=== PATIENT | female | born 1935 | race Caucasian/White ===

== ENCOUNTER 2017-08-23 17:51 | Emergency (ER) | payer MEDICARE ==
[2017-08-23 19:03] LABS: ABS Basophils 0.1 10^3/ul (0-0.2); ABS Eosinophils 0.1 10^3/ul (0-0.6); ABS Lymphocytes 1.1 10^3/ul (1.0-4.8); ABS Monocytes 0.8 10^3/ul (0-0.8); ABS Neutrophils 5.7 10^3/ul (1.5-7.7); ABS Nucleated RBC 0 10^3/ul; Eosinophil % 1.7 % (0-6); Hematocrit 39 % (35-47); Hemoglobin 13.1 g/dl (12.0-16.0); Lymphocyte % 14.4 % (25-47); Mean Corpuscular HGB Conc 34 g/dl (31-36); Mean Corpuscular Hemoglobin 31 pg (27-31); Mean Corpuscular Volume 92 fL (80-97); Mean Platelet Volume 8.5 um3 (7.4-10.4); Nucleated Red Blood Cells % 0.2; Platelet Count 253 10^3/ul (150-450); Red Blood Count 4.19 10^6/ul (4.0-5.4); Red Cell Distribution Width 14 % (10.5-15); White Blood Count 7.9 10^3/ul (3.5-10.8)
--- NOTE | 2017-08-23 19:11 | RAD ---
HISTORY: Left knee pain, swelling COMPARISONS: January 20, 2016 VIEWS: 4, Frontal, lateral, axial, and oblique views of the left knee FINDINGS: BONE DENSITY: There is diffuse osteopenia. BONES: There is no displaced fracture. JOINTS: There is moderate tricompartment osteoarthritis. There is a large suprapatellar joint effusion without lipohemarthrosis. ALIGNMENT: There is no dislocation. SOFT TISSUES: Unremarkable. OTHER FINDINGS: None. IMPRESSION: 1. LARGE JOINT EFFUSION. 2. OSTEOPENIA. 3. OSTEOARTHRITIS. 4. NO ACUTE OSSEOUS INJURY. THE DEGREE OF OSTEOPENIA MAY MAKE A NONDISPLACED FRACTURE RADIOGRAPHICALLY OCCULT. IF SYMPTOMS PERSIST, RECOMMEND REPEAT IMAGING.
[2017-08-23 19:19] LABS: EGFR Non-African American 67.4 (>60)
--- NOTE | 2017-08-23 19:51 | RAD ---
HISTORY: Left leg swelling COMPARISONS: None relevant TECHNIQUE: Multiple transverse and longitudinal ultrasound images were obtained of the left lower extremity from the level of the common femoral vein inferiorly through to the infrapopliteal veins using grayscale, color Doppler, and spectral Doppler imaging with and without compression and with augmentation. Comparison images were obtained of the contralateral common femoral vein. FINDINGS: VEINS: The venous system of the left lower extremity is compressible throughout its course, with normal flow on color Doppler imaging and normal response to augmentation on spectral Doppler imaging. SOFT TISSUES: Unremarkable. OTHER FINDINGS: None. IMPRESSION: NO LEFT LOWER EXTREMITY DEEP VEIN THROMBOSIS
--- NOTE | 2017-08-23 19:59 | ED ---
Lower Extremity - HPI Summary HPI Summary: 82-year-old female presents with left knee swelling today. She is unsure if the swelling was there in the morning. Her son states that he was told that was walking and her left knee gave out on and she fell and she believes that is when the pain started but she is unsure. She has a history of arthritis. She denies any fevers chills or body aches. She denies any spreading redness. She' s never had this before. She denies any surgeries on the area. She is on Coumadin for previous stroke. She has a history of previous strokes and seizures with slurred speech at baseline. She denies any chest pain or shortness of breath. She states she has no pain at rest but when she tries to ambulate she has pain. She normally walks with a walker. She lives at [place] but has not assistance to help her at home. patient is on coumadin. - History of Current Complaint Chief Complaint: EDExtremityLower Stated Complaint: LEG PAIN Time Seen by Provider: 08/23/17 18:21 Pain Intensity: 8 - Allergies/Home Medications Allergies/Adverse Reactions: Allergies Allergy/AdvReac Type Severity Reaction Status Date / Time No Known Allergies Allergy Verified 01/20/16 14:53 Home Medications: Home Medications Cholecalciferol TAB* [Vitamin D TAB*] 1,000 unit PO DAILY 08/23/17 [History Confirmed 08/23/17] Denosumab(NF) [Prolia(NF)] 60 mg IM .EVERYSIXMONTHS 08/23/17 [History Confirmed 08/23/17] Lamotrigine ER (NF) 200 mg PO DAILY 08/23/17 [History Confirmed 08/23/17] Metoprolol Tartrate TAB* [Lopressor TAB*] 25 mg PO DAILY 08/23/17 [History Confirmed 08/23/17] Multivit-Min/Iron/Folic/Lutein [Centrum Silver Women Tablet] 1 each PO DAILY [History Confirmed 08/23/17] Solifenacin(NF) [Vesicare(NF)] 10 mg PO BEDTIME 08/23/17 [History Confirmed ] Timolol 0.5% OPTH.MEERA* [Timoptic 0.5% Opth*] 1 drop BOTH EYES BID 08/23/17 [ History Confirmed 08/23/17] Warfarin TAB(*) [Coumadin TAB(*)] 6 mg PO MOWEFR 08/23/17 [History Confirmed ] Warfarin TAB(*) [Coumadin TAB(*)] 6.5 mg PO SUTUTHSA 08/23/17 [History Confirmed 08/23/17] levETIRAcetam TAB* [Keppra TAB*] 1,500 mg PO BID 08/23/17 [History Confirmed ] PMH/Surg Hx/FS Hx/Imm Hx Endocrine/Hematology History: Reports: Hx Anticoagulant Therapy Denies: Hx Thyroid Disease Comment Only: Hx Diabetes - DIET CONTROLLED Cardiovascular History: Reports: 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, Hx Hypertension, Hx Syncope, Other Cardiovascular Problems/Disorders - Left atrial appendage clot Denies: Hx Pacemaker/ICD Respiratory History: Denies: Hx Asthma, Hx Chronic Obstructive Pulmonary Disease (COPD) GI History: Reports: Other GI Disorders - PT had GI consult, unknown results Denies: Hx Ulcer History: Reports: Other Problems/Disorders - uti Denies: Hx Dialysis, Hx Renal Disease Musculoskeletal History: Reports: Hx Arthritis, Other Musculoskeletal History - PAIN IN RIGHT KNEE MORE THAN LEFT Denies: Hx Rheumatoid Arthritis, Hx Osteoporosis Sensory History: Reports: Hx Cataracts, Hx Contacts or Glasses, Hx Glaucoma - PREGLAUCOMA, CATARACTS Denies: Hx Hearing Aid Opthamlomology History: Reports: Hx Cataracts, Hx Contacts or Glasses, Hx Glaucoma - PREGLAUCOMA, CATARACTS Neurological History: Reports: Hx Headaches, Hx Seizures, Hx Transient Ischemic Attacks (TIA) Psychiatric History: Denies: Hx Panic Disorder - Surgical History Surgery Procedure, Year, and Place: Knee arthroscopy 2004. tonsils as child Hx Anesthesia Reactions: No - Immunization History Date of Tetanus Vaccine: Unsure Date of Influenza Vaccine: unsure Infectious Disease History: No Infectious Disease History: Denies: Hx Hepatitis, Hx Human Immunodeficiency Virus (HIV), Traveled Outside the [place] in Last 30 Days - Family History Known Family History: Positive: Cardiac Disease, Hypertension - Social History Alcohol Use: None Substance Use Type: Reports: None Smoking Status (MU): Never Smoked Tobacco Have You Smoked in the Last Year: No Review of Systems Negative: Fever Negative: Chest Pain Negative: Shortness Of Breath Positive: Edema - left leg All Other Systems Reviewed And Are Negative: Yes Physical Exam Triage Information Reviewed: Yes Vital Signs On Initial Exam: Initial Vitals Temp Pulse Resp BP Pulse Ox 99.7 F 64 18 182/85 97 08/23/17 17:54 08/23/17 17:54 08/23/17 17:54 08/23/17 17:54 08/23/17 17:54 Vital Signs Reviewed: Yes Appearance: Positive: Well-Appearing Skin: Positive: Warm, Dry Head/Face: Positive: Normal Head/Face Inspection Eyes: Positive: Normal, Conjunctiva Clear Respiratory/Lung Sounds: Positive: Clear to Auscultation, Breath Sounds Present Cardiovascular: Positive: Normal, RRR Musculoskeletal: Positive: Limited @ - left knee, Edema Left - knee, Other - good pulses, capillary refill<2 secs, nontender left knee, pos ballotments, pain with ROM knee Neurological: Positive: Other - slurred speech at baseline Diagnostics - Vital Signs Vital Signs Temp Pulse Resp BP Pulse Ox 08/23/17 19:08 99.1 F 66 15 173/89 99 08/23/17 18:00 67 12 97 08/23/17 17:59 182/85 08/23/17 17:54 99.7 F 64 18 182/85 97 - Laboratory Lab Results: Lab Results 08/23/17 08/23/17 Range/Units 18:28 18:28 WBC 7.9 (3.5-10.8) 10^3/ul RBC 4.19 (4.0-5.4) 10^6/ul Hgb 13.1 (12.0-16.0) g/dl Hct 39 (35-47) % MCV 92 (80-97) fL MCH 31 (27-31) pg MCHC 34 (31-36) g/dl RDW 14 (10.5-15) % Plt Count 253 (150-450) 10^3/ul MPV 8.5 (7.4-10.4) um3 Neut % (Auto) 72.2 (38-83) % Lymph % (Auto) 14.4 L (25-47) % [place] % (Auto) 10.6 H (0-7) % Eos % (Auto) 1.7 (0-6) % Baso % (Auto) 1.1 (0-2) % Absolute Neuts (auto) 5.7 (1.5-7.7) 10^3/ul Absolute Lymphs (auto) 1.1 (1.0-4.8) 10^3/ul Absolute Monos (auto) 0.8 (0-0.8) 10^3/ul Absolute Eos (auto) 0.1 (0-0.6) 10^3/ul Absolute Basos (auto) 0.1 (0-0.2) 10^3/ul Absolute Nucleated RBC 0 10^3/ul Nucleated RBC % 0.2 ESR Pending Sodium 136 (133-145) mmol/L Potassium 4.1 (3.5-5.0) mmol/L Chloride 100 L (101-111) mmol/L Carbon Dioxide 28 (22-32) mmol/L Anion Gap 8 (2-11) mmol/L BUN 20 (6-24) mg/dL Creatinine 0.81 (0.51-0.95) mg/dL Est GFR ( Amer) 86.6 (>60) Est GFR (Non-Af Amer) 67.4 (>60) BUN/Creatinine Ratio 24.7 H (8-20) Glucose 99 (70-100) mg/dL Calcium 10.1 (8.6-10.3) mg/dL Total Bilirubin 0.60 (0.2-1.0) mg/dL AST 26 (13-39) U/L ALT 18 (7-52) U/L Alkaline Phosphatase 70 (34-104) U/L C-React Prot High Sens 1.28 mg/L Total Protein 7.1 (6.4-8.9) g/dL Albumin 4.3 (3.2-5.2) g/dL Globulin 2.8 (2-4) g/dL Albumin/Globulin Ratio 1.5 (1-3) Result Diagrams: 08/23/17 18:28 08/23/17 18:28 Lab Statement: Any lab studies that have been ordered have been reviewed, and results considered in the medical decision making process. - Radiology knee Xray Interpretation: Positive (See Comments) - IMPRESSION: 1. LARGE JOINT EFFUSION. 2. OSTEOPENIA. 3. OSTEOARTHRITIS. 4. NO ACUTE OSSEOUS INJURY. THE DEGREE OF OSTEOPENIA MAY MAKE A NONDISPLACED FRACTURE RADIOGRAPHICALLY OCCULT. IF SYMPTOMS PERSIST, RECOMMEND REPEAT IMAGING. Radiology Interpretation Completed By: Radiologist - Ultrasound No standard instances Ultrasound Interpretation: No Acute Changes Ultrasound Interpretation Completed By: Radiologist Re-Evaluation - Re-Evaluation First Eval Re-Evaluation Time: 00:35 Comment: after frequent discussion with daughter about admission vs [facility]. offered admission but due to be able to ambulate will have to be senior living admission. daughter has decided to take her to her house. Lower Extremity Course/Dx - Course Course Of Treatment: 82-year-old female presents with left knee swelling today. She is unsure if the swelling was there in the morning. Her son states that he was told that was walking and her left knee gave out on and she fell and she believes that is when the pain started but she is unsure. She has a history of arthritis. She denies any fevers chills or body aches. She denies any spreading redness. She's never had this before. She denies any surgeries on the area. She is on Coumadin for previous stroke. She has a history of previous strokes and seizures with slurred speech at baseline. She denies any chest pain or shortness of breath. She states she has no pain at rest but when she tries to ambulate she has pain. She normally walks with a walker. She lives at [place]. patient is on coumadin. on exam joint is not warm or tender. pos ballotments. has pain with passive ROM. labs wbc, crp and esr normal. u/s dvt normal. xray shows large joint effusion. discussed case with dr rudolph who saw patient and advised to tap knee. dr rudolph performed joint aspiration. the fluid was bloody. spoke with dr heart and says that appears has traumatic hematoma and is not a septic joint. patient can not walk so will consult hospitalists. as was able to ambulate in ED well will need to be admitted senior living. Discuss with daughter and his daughter finally decided that she will take patient home. told follow with primary. Patient's daughter understands agrees with plan. - Diagnoses Differential Diagnosis/HQI/PQRI: Positive: DVT, Fracture (Closed), Septic Arthritis, Sprain Provider Diagnoses: Effusion, left knee Discharge - Sign-Out/Discharge Documenting (check all that apply): Discharge - Discharge Plan Condition: Stable Disposition: HOME Patient Education Materials: Swollen Knee Joint (ED) Referrals: Patrica Ramos MD [Primary Care Provider] - Additional Instructions: Take tyenlol every 6 hours for pain Ice, elevate Wear compression socks Use NIKA on area during day Follow up with primary on Saturday Return to ED if develop any new or worsening symptoms - Billing Disposition and Condition Condition: STABLE Disposition: HOME
[2017-08-23 20:02] LABS: INR 2.47 (0.77-1.02)
[2017-08-23] MEDS ORDERED: Bupivacaine 0.5%* 50 ML VIAL INJ ONE (20:18)
[2017-08-23] MEDS ORDERED: levETIRAcetam TAB* 500 MG PO ONE ×2 (20:58)
[2017-08-23] MEDS ORDERED: LAMOTRIGINE 250 MG PO ONE (20:58)
[2017-08-23] MEDS ORDERED: Metoprolol Tartrate TAB* 25 MG PO ONE (20:59)
[2017-08-23] MEDS ORDERED: Solifenacin(NF) 10 MG TAB PO ONE (21:00)
[2017-08-23] MEDS ORDERED: Warfarin TAB(*) 5 MG PO ONE (21:01)
[2017-08-23] MEDS ORDERED: levETIRAcetam TAB* 500 MG ONE (21:14)
[2017-08-23] MEDS ORDERED: CMCS: Solifenacin(NF) 5 MG TAB PO ONE (22:00)
[2017-08-23] MEDS ORDERED: lamoTRIgine TAB(*) 100 MG PO ONE (22:00)
[2017-08-23] MEDS ORDERED: Acetaminophen TAB* 325 MG PO ONE (22:34)
[2017-08-24 00:02] VITALS: BP 142/60
== END 2017-08-24 00:53 | disposition home or self-care (01) ==
LOC: ED 17:51
DX: M25.462 Effusion, left knee (principal); Z79.01 Long term (current) use of anticoagulants
CPT/HCPCS: 36415; 80053; 82945; 85025; 85610; 85652; 86141; 86618; 87040; 87070; 87205; 87640; 87641; 89051; 89060; 96374; 99284; A9270-GY

== ENCOUNTER 2018-07-30 20:08 | Emergency (ER) | payer BC, MEDICARE ==
[2018-07-30 20:23] VITALS: BP 142/91
--- NOTE | 2018-07-30 20:32 | UC ---
Knee Pain HPI - HPI Summary HPI Summary: 83 y/o female presents to the urgent care accompany by family members c/o lower back pain and b/l knee pain w/ abrasion and swelling s/p falling after her knees gave away while she was being help to go to the bathroom. Due to Pt's Hx of CVA in 2012, Pt expresses w/ difficulty that her B/L knees wave away and she couldn't stand by herself and fell. That her pain is 7/10, sharp, intermittent and originates in the lower back and radiates to the hip and Rt lower extremity. Also that her knee hurt a lot. Her daughter reports Pt lives in [place] [facility] and she was told by a Staff member that Pt has been c/o lower back of for the last couple of weeks and that this morning pain worse and was radiating to her Lower extremities RT>LF. Then, Pt was trying to go to the bathroom and couldn't stand and her knees "buckled" and she fell. Then, around 1730PM, she tried w/ assistance, but was unable to stand up and fell a second time. Pt has been on Coumadin for the past 5 years. Last INR on was 2.9. Pt denies LOC, numbness or tinging of lower extremities, fever , urinary symptoms, saddle anesthesia, urinary or fecal incontinence. When ask if she can give us urine she states she can tried. Daughter and family member are concern that Pt can not return to [facility] if she can't ambulate. Pt denies , CAMERON, photophobia , visual changes, SOB, chest pain, abdominal pain, N/V/D - History of Current Complaint Chief Complaint: UCLowerExtremity Stated Complaint: PAIN IN KNEES Time Seen by Provider: 07/30/18 20:30 Hx Obtained From: Patient, Family/First Responder Onset/Duration: Gradual Onset, Lasting Weeks - couple of weeks w/ lower back pain, Worse Since - today her B/l knee gave away and fell one time w/o assistence and another time w/ assistance. unable to ambulate now Severity Initially: Mild Severity Currently: Moderate Pain Intensity: 7 Pain Scale Used: 0-10 Numeric Character: Sharp, Spasmodic Aggravating Factor(s): Movement, Weight Bearing, Other - unable to stand up Alleviating Factor(s): Rest, OTC Meds - took tylenol PO around 1800PM Associated Signs And Symptoms: Positive: Swelling, Redness, Bruising - b/L knees w/ abrasion Able to Bear Weight: No - Risk Factors Septic Arthritis Risk Factor: Negative Gout Risk Factor: Negative - Allergies/Home Medications Allergies/Adverse Reactions: Allergies Allergy/AdvReac Type Severity Reaction Status Date / Time No Known Allergies Allergy Verified 07/30/18 22:08 Home Medications: Home Medications Acetaminophen [Tylenol Extra Strength] 500 mg PO Q6HR 07/30/18 [History] Cholecalciferol (Vitamin D3) [Vitamin D3] 1,000 unit PO DAILY 07/30/18 [History] Denosumab(NF) [Prolia(NF)] 60 mg .SEE ORDER DAILY 07/30/18 [History] Mirabegron [Myrbetriq] 25 mg PO DAILY 07/30/18 [History Confirmed 07/30/18] levETIRAcetam [Levetiracetam ER] 750 mg PO DAILY 07/30/18 [History Confirmed ] PMH/Surg Hx/FS Hx/Imm Hx Previously Healthy: Yes Other Endocrine History: osteoporosis Cardiovascular History: Atrial Fibrillation Neurological History: CVA, Seizures Other Neurological History: Stroke on 2012 Other History Of: Anticoagulant Therapy - Surgical History Surgical History: Yes Surgery Procedure, Year, and Place: Knee arthroscopy 2004. tonsils as child - Family History Known Family History: Positive: Cardiac Disease, Hypertension - Social History Occupation: Retired Lives: Assisted Living Alcohol Use: None Substance Use Type: None Smoking Status (MU): Never Smoked Tobacco Have You Smoked in the Last Year: No - Immunization History Most Recent Influenza Vaccination: 03/16 Most Recent Tetanus Shot: 2010 Most Recent Pneumonia Vaccination: April 2001 Review of Systems All Other Systems Reviewed And Are Negative: Yes Constitutional: Positive: Negative Skin: Positive: Bruising - b/l knees w/ abrasion s/p fall Eyes: Positive: Negative ENT: Positive: Negative Respiratory: Positive: Negative Cardiovascular: Positive: Negative Gastrointestinal: Positive: Negative Genitourinary: Positive: Negative Motor: Positive: Negative Musculoskeletal: Positive: Decreased ROM - lower back and B/L knees s/p fall, Other: - lower back for the last 2 weeks and B/l knee pain w/ swelling a bruising s/p fall toady Neurological: Positive: Negative Psychological: Positive: Negative Is Patient Immunocompromised?: No Physical Exam - Summary Physical Exam Summary: Vital Signs Reviewed: Yes Appearance: Well-Appearing, Well-Nourished, old female sitting in the examining on the wheel chair w/o any apparent pain or respiratory distress. Eyes: Positive: Conjunctiva Clear - PERRLA, EOMI. ENT: Positive: Normal ENT inspection, Hearing grossly normal, Pharynx normal, TMs normal, Uvula midline Neck: Positive: Supple, Nontender, No Lymphadenopathy Respiratory: Positive: Chest non-tender, Lungs clear, Normal breath sounds, No respiratory distress Cardiovascular: Positive: RRR, No Murmur, Pulses Normal, Brisk Capillary Refill Abdomen Description: Positive: Nontender, No Organomegaly, Soft. Negative: CVA Tenderness (R), CVA Tenderness (L) Bowel Sounds: Positive: Present Musculoskeletal: Positive: Strength Intact, BACK: Patient unable to ambulate or bear weight., No masses palpated. Kyphoscoliosis observed. Point tenderness at the level of L4-S1, No CVAT, no flank ecchymosis . No sacroiliac notch tenderness, No saddle anesthesia.ROM: limited since patient is unable to stand up or lay down on the examining table due to pain, Straight Leg Raise: unable to performe do to pain. Patellar reflexes: brisk, decrease Muscle strength on Rt lower extremities. Dorsiflexion/ plantar flexion of ankles WNL. Lower extremities: Femoral, popliteal, posterior tibial, and dorsalis pedis pulses WNL. Positive: B/l knees w/ mild soft tissue swelling, mild effusion RT>LF w/ overlying erythema and abrasion. The R knee is without obvious asymmetry or deformity when compared with the L knee. Decreased ROM of RT knee due to pain. Posiitve tenderness to palpation of both patellas, tenderness over the infrapatellar tendon. Point tenderness over the medial joint line, No tenderness over the medial or lateral tibial plateaus. No tenderness over the proximal fibular head, No tenderness, fullness or mass of the popliteal fossa. No quadriceps tenderness. No laxity of the ACL. PCL, MCL, or LCL. no collateral ligament laxity to valgus or varus stress. Negative Giorgi/Drawer sign. Marcia unable to perform due to pain. B/l feet w/ moderate bruising. Rt hip illiac crest point tenderness and decreaser ROM due to pain. Psychological Exam: Normal Skin Exam: B/L knee abrasions Neuro: A&O x3, GCS 15, CN II-XII grossly intact. sensory exam nonfocal. B/L LE w/ decrease strength, Reflexes are symmetric. Speech is w/ expressive aphasia and unable to ambulate Triage Information Reviewed: Yes Vital Signs: Initial Vital Signs Temp 99.3 F 07/30/18 20:16 Pulse 73 07/30/18 20:16 Resp 16 07/30/18 20:16 BP 142/91 07/30/18 20:16 Pulse Ox 96 07/30/18 20:16 Knee Pain Course/Dx - Course Course Of Treatment: 83 y/o female presents to the urgent care accompany by family members c/o lower back pain and b/l knee pain w/ abrasion and swelling s/ p falling after her knees gave away while she was being help to go to the bathroom. Due to Pt's Hx of CVA in 2012, Pt expresses w/ difficulty that her B/ L knees wave away and she couldn't stand by herself and fell. That her pain is 7/10, sharp, intermittent and originates in the lower back and radiates to the hip and Rt lower extremity. Also that her knee hurt a lot. Her daughter reports Pt lives in [facility] and she was told by a Staff member that Pt has been c/o lower back of for the last couple of weeks and that this morning pain worse and was radiating to her Lower extremities RT>LF. Then, Pt was trying to go to the bathroom and couldn't stand and her knees "buckled" and she fell. Then, around 1730PM, she tried w/ assistance, but was unable to stand up and fell a second time. Pt has been on Coumadin for the past 5 years. Last INR on 07/19/2018 was 2.9. Pt denies LOC, numbness or tinging of lower extremities, fever, urinary symptoms, saddle anesthesia, urinary or fecal incontinence. When ask if she can give us urine she states she can tried. Daughter and family member asre concern that Pt can not return to [facility] if she can't ambulate. Pt denies, CAMERON, photophobia , visual changes, SOB, chest pain, abdominal pain, N/V/D. Hx obtained. Pt is hemodynamically stable, A&OX3, vitals WNL. However, due to patient's HX of CVA the neurological exam can't be fully assessed. She presents w/ expressive aphasia and some degree of B/L LE weakness w/ Point tenderness at the level of L4-S1, B/L knee swelling w/ mild effusion and abrasion and decrease ROM due to pain, however pulses and capillary refill are WNL on examination. Pt is on Coumadin and fell we need to r /o any bleeding or hematoma or recent CVA. Pt also w/ Hx of osteoporosis on Prolia, we need to r/o compression fracture of hip fracture. I discussed Pt's symptoms with Dr Riley since I think Pt needs a higher level of care. Dr Riley evaluated Pt and agreed that Pt needs to go to the [place] [facility]. She addressed and explained to Pt and family members the importance of transferring Pt to [place] [facility] [facility] for further evaluation and treatment on her symptoms and the risks of not going there. They were offered Ambulance transferred. However, they declined and stated they will take Pt immediately to the ER in their private car. Dr Riley discussed Pt's symptoms w/ [facility] who accepted the patient. Pt left the clinic on the wheel chair, hemodynamically stable, A&OX3. - Differential Dx/Diagnosis Differential Diagnosis/HQI/PQRI: Abrasion, Contusion, Fracture (Closed), Sprain , Strain, Tendonitis, Other - lower back pain, hematoma, compression fracture Provider Diagnosis: Lower back pain, Acute bilateral knee pain, Abrasion Discharge - Sign-Out/Discharge Documenting (check all that apply): Patient Departure - Pt and family memebers hightly recommended to go to the ER for further evaluationa and treatment on your symptoms All imaging exams completed and their final reports reviewed: No Studies - Discharge Plan Condition: Stable Disposition: TRANS HIGHER LVL OF CARE FAC Patient Education Materials: Acute Low Back Pain (ED) Referrals: Patrica Ramos MD [Primary Care Provider] - 1 Day Additional Instructions: I think you need a higher level or care for your presenting symptoms. I highly recommend you to go to the ER for further evaluation and treatment. The risks of not going can be sepsis, compression fracture, unable to ambulate heart attack, etc. Dr Riley spoke to charge [facility] . They are expecting you. - Billing Disposition and Condition Condition: STABLE Disposition: Trans Higher Lvl of Care Fac
== END 2018-07-30 21:46 | disposition short-term general hospital (02) ==
LOC: UCEAST 20:08
DX: S80.212A Abrasion, left knee, initial encounter (principal); S80.211A Abrasion, right knee, initial encounter; M54.5 Low back pain; M25.562 Pain in left knee; M25.561 Pain in right knee; W19.XXXA Unspecified fall, initial encounter; Y92.9 Unspecified place or not applicable
CPT/HCPCS: 99212; G0463

== ENCOUNTER 2018-07-30 21:59 | Inpatient (IN) | payer BC, MEDICARE ==
--- NOTE | 2018-07-30 23:52 | ED ---
Lower Extremity - HPI Summary HPI Summary: An 83 y/o F referred [place] [facility] [place] with c/o bilateral LE weakness onset yesterday at 1700. She attempted to stand, when she had hip pain that radiated to her bilateral LE, which caused her legs to buckle, and she fell. She 's been unable to bear weight since then. The pain and weakness is worse on her RLE than her LLE. She states this AM she was feeling OK and was able to ambulate with her walker. She's been having intermittent back pain for the past few weeks. Denies recent illness, CP, SOB, dyspnea, abd pain, CAMERON. 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 She ate lunch today but hasnt eaten since. - History of Current Complaint Chief Complaint: EDExtremityLower Stated Complaint: PAIN IN LEGS Time Seen by Provider: 07/30/18 23:42 Hx Obtained From: Patient, Family/Jewelry Consultant - son Onset of Pain: Immediate Onset/Duration: Still Present Severity Initially: Severe Severity Currently: Severe Pain Intensity: 8 Pain Scale Used: 0-10 Numeric Timing: Constant Location: Radiates To - bilateral LE, R worse than L Aggravating Factor(s): Ambulation, Movement, Weight Bearing Able to Bear Weight: No - Allergies/Home Medications Allergies/Adverse Reactions: Allergies Allergy/AdvReac Type Severity Reaction Status Date / Time No Known Allergies Allergy Verified 07/30/18 22:08 PMH/Surg Hx/FS Hx/Imm Hx Previously Healthy: No Endocrine/Hematology History: Reports: Hx Anticoagulant Therapy Denies: Hx Thyroid Disease Comment Only: Hx Diabetes - DIET CONTROLLED Cardiovascular History: Reports: Hx Atrial Fibrillation, 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, Hx Hypertension, Hx Syncope, Other Cardiovascular Problems/Disorders - Left atrial appendage clot Denies: Hx Pacemaker/ICD Respiratory History: Denies: Hx Asthma, Hx Chronic Obstructive Pulmonary Disease (COPD) GI History: Reports: Other GI Disorders - PT had GI consult, unknown results Denies: Hx Ulcer History: Reports: Other Problems/Disorders - uti Denies: Hx Dialysis, Hx Renal Disease Musculoskeletal History: Reports: Hx Arthritis, Hx Osteoporosis, Other Musculoskeletal History - PAIN IN RIGHT KNEE MORE THAN LEFT Denies: Hx Rheumatoid Arthritis Sensory History: Reports: Hx Cataracts, Hx Contacts or Glasses, Hx Glaucoma - PREGLAUCOMA, CATARACTS Denies: Hx Hearing Aid Opthamlomology History: Reports: Hx Cataracts, Hx Contacts or Glasses, Hx Glaucoma - PREGLAUCOMA, CATARACTS Neurological History: Reports: Hx Headaches, Hx Seizures, Hx Transient Ischemic Attacks (TIA) Psychiatric History: Denies: Hx Panic Disorder - Surgical History Surgery Procedure, Year, and Place: Knee arthroscopy 2004. tonsils as child Hx Anesthesia Reactions: No - Immunization History Date of Tetanus Vaccine: Unsure Date of Influenza Vaccine: unsure Infectious Disease History: No Infectious Disease History: Denies: Hx Hepatitis, Hx Human Immunodeficiency Virus (HIV), Traveled Outside the [place] in Last 30 Days - Family History Known Family History: Positive: Cardiac Disease, Hypertension - Social History Occupation: Retired Lives: [facility] Alcohol Use: None Hx Substance Use: No Substance Use Type: Reports: None Hx Tobacco Use: No Smoking Status (MU): Never Smoked Tobacco Have You Smoked in the Last Year: No Review of Systems Negative: Fever Negative: Chest Pain Respiratory: Negative Negative: Abdominal Pain Musculoskeletal: Other - pos: bilateral LE pain, hip pain Positive: Weakness - bilateral LE. Negative: Headache All Other Systems Reviewed And Are Negative: Yes Physical Exam - Summary Physical Exam Summary: Appearance: Elderly female, Ill-appearing, Well-nourished, lying in bed comfortably in no acute distress Skin: Warm, dry, no obvious rash Eyes: sclera anicteric, no conjunctival pallor ENT: mucous membranes moist, pharynx appears normal Neck: Supple, nontender Respiratory: Clear to auscultation, no signs of respiratory distress Cardiovascular: Normal S1, S2. No murmurs. Normal distal pulses in tibial and radial bilaterally. Abdomen: Soft, normal active bowel sounds present, mildly distended but non- tender Musculoskeletal: Weakness of RLE, unable to raise it off stretcher; tenderness in back to palpation Neurological: A&Ox3, awake and alert, mentation is normal, speech is fluent and appropriate Psychiatric: affect is normal, does not appear anxious or depressed Triage Information Reviewed: Yes Vital Signs On Initial Exam: Initial Vitals Temp Pulse Resp BP Pulse Ox 98.8 F 70 16 180/94 96 07/30/18 22:04 07/30/18 22:04 07/30/18 22:04 07/30/18 22:04 07/30/18 22:04 Vital Signs Reviewed: Yes Diagnostics - Vital Signs Vital Signs Temp Pulse Resp BP Pulse Ox 07/30/18 23:41 61 199/103 96 07/30/18 23:38 68 97 07/30/18 22:04 98.8 F 70 16 180/94 96 - Laboratory Result Diagrams: 07/31/18 00:06 07/31/18 00:06 Lab Statement: Any lab studies that have been ordered have been reviewed, and results considered in the medical decision making process. - Radiology hip/pelvis XR Radiology Interpretation Completed By: ED Physician Summary of Radiographic Findings: No acute fracture. l-spine XR Radiology Interpretation Completed By: ED Physician Summary of Radiographic Findings: Degenerative joint disease but no fracture. Lower Extremity Course/Dx - Course Course Of Treatment: Pt is an 83 y/o F referred from [facility] [place] presenting with bilateral LE weakness onset yesterday at 1700. She attempted to stand, when she had hip pain that radiated to her bilateral LE, and caused her legs to buckle. She's been unable to bear weight since. The pain and weakness is worse on her RLE. She states this AM she was feeling OK and was able to ambulate with her walker. She's been having intermittent back pain for the past few weeks. Denies recent illness, CP, SOB, dyspnea, abd pain, CAMERON. 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 She ate lunch today but hasnt eaten since. HIP/PELVIS XR and L-SPINE XR are negative for fractures. UA results show trace ketones. Consulted with Dr. Barragan, hospitalist, who will admit pt. - Diagnoses Provider Diagnoses: Spinal stenosis - Physician Notifications Discussed Care Of Patient With: Delmi Barragan - hospitalist Time Discussed With Above Provider: 01:09 Instructed by Provider To: Admit As Inpatient Discharge - Sign-Out/Discharge Documenting (check all that apply): Patient Departure - ADMIT Patient Received Moderate/Deep Sedation with Procedure: No - Discharge Plan Condition: Guarded Disposition: ADMITTED TO [facility] - Billing Disposition and Condition Condition: GUARDED Disposition: Admitted to [facility] - Attestation Statements Document Initiated by Scribe: Yes Documenting Scribe: Gage Martinez Provider For Whom Scribe is Documenting (Include Credential): MD Hugo Wetzel Attestation: I, Gage Martinez, scribed for Dr. Santo Maravilla MD on 07/31/18 at 0258. Scribe Documentation Reviewed: Yes Provider Attestation: The documentation as recorded by the scribe, Gage Martinez accurately reflects the service I personally performed and the decisions made by me, Dr. Santo Maravilla MD Status of Scribe Document: Viewed
[2018-07-30] MEDS ORDERED: NS 0.9% 1000 ML** 1,000 ML IV ONE (23:57)
[2018-07-30] MEDS ORDERED: Morphine VIAL* 4 MG/ML VIAL (1 ml vial) IV ONE (23:59)
[2018-07-31 00:24] LABS: ABS Basophils 0.1 10^3/ul (0-0.2); ABS Eosinophils 0.2 10^3/ul (0-0.6); ABS Lymphocytes 1.6 10^3/ul (1.0-4.8); ABS Monocytes 1.1 10^3/ul (0-0.8); ABS Neutrophils 5.8 10^3/ul (1.5-7.7); ABS Nucleated RBC 0 10^3/ul; Eosinophil % 2.5 %; Hematocrit 41 % (35-47); Hemoglobin 13.8 g/dl (12.0-16.0); Lymphocyte % 17.6 %; Mean Corpuscular HGB Conc 33 g/dl (31-36); Mean Corpuscular Hemoglobin 31 pg (27-31); Mean Corpuscular Volume 91 fL (80-97); Mean Platelet Volume 8.7 fL (7.4-10.4); Nucleated Red Blood Cells % 0; Platelet Count 233 10^3/ul (150-450); Red Blood Count 4.53 10^6/ul (4.00-5.40); Red Cell Distribution Width 14 % (10.5-15); White Blood Count 8.8 10^3/ul (3.5-10.8)
[2018-07-31 00:41] LABS: Albumin 4.2 g/dL (3.2-5.2); Albumin/Globulin Ratio 1.5 (1-3); BUN/Creatinine Ratio 23.7 (8-20); C Reactive Protein 4.99 mg/L (<8.01); EGFR African American 87.5 (>60); EGFR Non-African American 72.3 (>60); Globulin 2.8 g/dL (2-4); Potassium 3.6 mmol/L (3.5-5.0); Total Bilirubin 0.6 mg/dL (0.2-1.0)
[2018-07-31 00:56] LABS: TSH (Thyroid Stimulating Horm) 2.83 mcIU/mL (0.34-5.60)
[2018-07-31 01:24] LABS: Urine Appearance Clear; Urine Bilirubin Negative (Negative); Urine Blood Negative (Negative); Urine Color Yellow; Urine Glucose Negative (Negative); Urine Ketones Trace (Negative); Urine Nitrite Negative (Negative); Urine Protein Negative (Negative); Urine Specific Gravity 1.008 (1.010-1.030); Urine Urobilinogen Negative (Negative)
[2018-07-31 03:06] LABS: INR 3.22 (0.77-1.02)
[2018-07-31] MEDS ORDERED: Phytonadione IV (Adult)* 10 MG/ML 1 ML AMP IV ONE (04:49)
[2018-07-31] MEDS ORDERED: levETIRAcetam IV* 500 MG in NS 0.9% 100 ML* 100 ML IVPB ONE (04:56)
--- NOTE | 2018-07-31 05:09 | PN ---
Hospitalist Progress Note Date of Service: 07/31/18 I have spoken with Chiquis's daughter Lisseth and updated her on her mother's condition. She understands. I also verified that she is indeed FULL CODE. I spoke with Dr. Hopper after he reviewed the films and he has the same recommendations as prior--reverse INR, FFP, ICU transfer. Continue her usual seizure medications. Will recheck INR after vitamin K is given and also CT head in 6 hours. Will also check CT c-spine.
[2018-07-31] MEDS ORDERED: niCARdipine 0.1MG/ML IVPREMIX* 20 MG/200 ML BAG IV ONE (05:26)
[2018-07-31] MEDS ORDERED: Phytonadione 10 mg in 50 mL NS over 30 min IV ONE (05:45)
--- NOTE | 2018-07-31 08:24 | HP ---
HISTORY AND PHYSICAL: ADDENDUM: I received a call from the on-call radiologist regarding Ms. Cisneros' CT head, who reported that she has a small acute subarachnoid hemorrhage. I have spoken with Dr. Polo who recommends IV vitamin K, Keppra, FFP, and transfer to the ICU. I have spoken with her floor nurse and also the ICU nurse and have arranged this transfer. I will call Ms. Cisneros' son and update him. The question is whether the subarachnoid hemorrhage is a result of the fall or a cause of the fall. Dr. Polo is currently reviewing the film, after which we will discuss her case again. [id number]/[facility] #: [id number] MTDD
[2018-07-31] MEDS ORDERED: Metoprolol Tartrate IV* 1 MG/ML 5 ML VIAL IV PRN (08:52)
[2018-07-31] MEDS ORDERED: Warfarin TAB(*) 5 MG PO SCH (09:00)
--- NOTE | 2018-07-31 09:14 | HP ---
ADDENDUM NOW INCLUDED ON THIS REPORT HISTORY AND PHYSICAL: DATE OF ADMISSION: 07/31/18 TIME OF ADMISSION: 3 o'clock a.m. PRIMARY CARE PHYSICIAN: Patrica Ramos MD. CHIEF COMPLAINT: Falls. HISTORY OF PRESENT ILLNESS: This is an 83-year-old female with a history of CVAs and expressive aphasia, who presents to the emergency department after 2 falls in the past 2 days at [place]. The history is markedly limited by expressive aphasia that she has had as a result of prior CVAs. However, the emergency department was able to get some history from the patient's son before he left. He reports that he brought her to the emergency department for bilateral leg pain and inability to walk over the last 2 days. Ms. Cisneros herself is able to tell me that she has had 2 falls in the past 2 days. On the first day, the staff was able to help her back into bed, but the second one, they were unable to help her back up. She says that prior to the falls, however , she was experiencing pain in her right inferior rib cage that radiated all the way down to her hip and right thigh. She denies any bowel or bladder incontinence; however, in the emergency department, her bladder was noted to be distended, and when a Lara catheter was placed, 700 cc were released. Ms. Cinseros denies cough, shortness of breath, chest pain, nausea, vomiting, constipation, diarrhea, dysuria, but does note some urinary frequency. PAST MEDICAL HISTORY: CVA with expressive aphasia and right upper extremity sensory deficit and weakness; seizure disorder; atrial fibrillation, on warfarin ; osteoporosis. HOME MEDICATIONS: 1. Tylenol 500 mg q.6. 2. Vitamin D3 1000 units daily. 3. Denosumab 60 mg weekly. 4. Centrum Silver multivitamin daily. 5. Atorvastatin 20 mg daily. 6. Lamotrigine ER 200 mg b.i.d. 7. Keppra 750 mg ER daily. 8. Toprol-XL 25 mg daily. 9. Mirabegron 25 mg daily. 10. Timolol 0.5% ophthalmic solution 1 drop both eyes b.i.d. 11. Warfarin 5 mg daily. SOCIAL HISTORY: She lives at [place] and is normally independent. She names her daughter Lisseth and her son Guille as her healthcare proxies. She is a full code. PHYSICAL EXAMINATION GENERAL: Alert, elderly female, in no distress. She is anxious and gets frustrated at her inability to express herself clearly verbally. VITAL SIGNS: Temperature 98.8, heart rate 64, respiratory rate 18, pulse ox 99 % on room air, blood pressure 159/92. HEENT: Pupils equal, round, and reactive to light. She has good eye contact and extraocular movements are intact. Her oral mucosa is very dry. NECK: No JVP or adenopathy. LUNGS: Clear bilaterally. CHEST: She is in a regular rhythm with no murmurs appreciated. ABDOMEN: Soft, nontender, and nondistended. She is tender to palpation in the right 10th through 12th ribs. EXTREMITIES: She is tender to palpation over her right hip; however, she has excellent active and passive range of motion and does not have pain with flexion , extension, internal or external rotation. She has no swelling. Her pulses are 2+. She has no skin changes. She has abrasions on both knees, and a Lara catheter is in place. NEUROLOGIC: Her strength is 5/5 in all extremities. Her sensation is intact. Her proprioception is intact. She has some expressive aphasia but is largely able to communicate her major points; however, details get lost. She follows simple commands, and her cognition seems to be intact. LABORATORY DATA: White blood cells 8.8, hemoglobin 13.8, platelets 233. Sodium 140, potassium 3.6, chloride 104, BUN 18, creatinine 0.76, glucose 103, lactic acid 1.0. CK is pending and INR is pending. A urinalysis is negative for nitrites, leukocyte esterase. IMAGING: A lumbar spine x-ray and a hip pelvis x-ray are negative per the ED provider report. A [facility] report is pending. ASSESSMENT AND PLAN: This is an 83-year-old female with history of a cerebrovascular accident and expressive aphasia and atrial fibrillation, on anticoagulation, who comes to the emergency department after 2 falls in 2 days and was found to have acute urinary retention. 1. Falls. The etiology of her falls is unclear. She has no metabolic derangements or any evidence of an infectious process that are causing her to fall. I am getting a CT head now to rule out both the cause of her falls and also to rule out a bleed from her falls because she is on anticoagulation. I will follow this closely. Her strength is good. I do not see any neurologic deficits that would cause her to fall based on my exam. However, I think she needs a more extensive radiographic workup as below. 2. Right-sided pain. I have a CK pending. I am also ordering and a rib series since when asked to localize the pain, she actually points to her inferior rib cage on the right. I am ordering a PT consult and also an MRI of her L-spine given her ongoing pain and urinary retention to rule out a spinal process, but again her lower extremities have good strength and sensation. 3. History of cerebrovascular accident with expressive aphasia. This seems to be at her baseline based on her prior documentation from old admissions. Continue warfarin pending the INR. 4. History of seizures. Continue Keppra and lamotrigine. It is possible that a seizure contributed to her fall but no one who had provided history has suggested that this was part of her presentation. 5. DVT prophylaxis: She is on therapeutic anticoagulation. 6. Full code. ADDENDUM: I received a call from the on-call radiologist regarding Ms. Cisneros' CT head, who reported that she has a small acute subarachnoid hemorrhage. I have spoken with Dr. Polo who recommends IV vitamin K, Keppra, FFP, and transfer to the ICU. I have spoken with her floor nurse and also the ICU nurse and have arranged this transfer. I will call Ms. Cisneros' son and update him. The question is whether the subarachnoid hemorrhage is a result of the fall or a cause of the fall. Dr. Polo is currently reviewing the film, after which we will discuss her case again. [id number]/[facility] #: [id number]/[facility] #: [id number] [facility]
[2018-07-31 09:30] LABS: INR 1.73 (0.77-1.02)
[2018-07-31] MEDS: NS 0.9% 1000 ML** 1,000 ML IV SCH ×2 (10:31→22:47)
[2018-07-31] MEDS: LAMOTRIGINE 200 MG PO SCH ×3 (11:32→20:37)
[2018-07-31] MEDS: CMCS:Levetiracetam XR TAB(NF) 750 MG TAB.XR PO SCH (11:33)
[2018-07-31] MEDS: Mirabegron (NF) 25 MG TAB PO SCH (11:33)
[2018-07-31] MEDS: Metoprolol Succinate XL TAB* 25 MG PO SCH ×2 (11:33→14:21)
[2018-07-31] MEDS: Timolol 0.5% OPTH.SOL* BTL BOTH EYES SCH ×2 (11:49→20:46)
[2018-07-31] MEDS ORDERED: Phytonadione Oral Solution* 5 MG/25 ML UDC PO ONE (13:37)
[2018-07-31] MEDS: Acetaminophen TAB* 325 MG PO PRN ×2 (15:34→20:47)
--- NOTE | 2018-07-31 18:06 | PN ---
Subjective Date of Service: 07/31/18 Interval History: Patient seen and examined, difficult to obtain ROS 2/2 residual CVA deficits and expressive aphasia but can follow some simple commands. Objective Active Medications: Acetaminophen (Tylenol Tab*) 650 mg PO Q4H PRN PRN Reason: FEVER/PAIN Last Admin: 07/31/18 15:34 Dose: 650 mg Atorvastatin Calcium (Lipitor*) 20 mg PO 1700 MARIA LUZ Sodium Chloride (Ns 0.9% 1000 Ml) 1,000 mls @ 75 mls/hr IV PER RATE COUNT INCLUDES THE [facility] Last Admin: 07/31/18 10:31 Dose: 75 mls/hr Lamotrigine (Lamictal Xr (Nf)) 200 mg PO BID COUNT INCLUDES THE [facility] Last Admin: 07/31/18 14:21 Dose: 200 mg Levetiracetam (Keppra Xr (Nf)) 750 mg PO DAILY COUNT INCLUDES THE [facility]; Protocol Last Admin: 07/31/18 11:33 Dose: Not Given Metoprolol Succinate (Toprol Xl Tab*) 25 mg PO DAILY COUNT INCLUDES THE [facility] Last Admin: 07/31/18 14:21 Dose: 25 mg Metoprolol Tartrate (Lopressor Iv*) 5 mg IV Q6H PRN PRN Reason: BLOOD PRESSURE Mirabegron (Myrbetriq (Nf)) 25 mg PO DAILY COUNT INCLUDES THE [facility] Last Admin: 07/31/18 11:33 Dose: Not Given Timolol Maleate (Timoptic 0.5% Opth*) 1 drop BOTH EYES BID COUNT INCLUDES THE [facility] Last Admin: 07/31/18 11:49 Dose: 1 drop Vital Signs - 8 hr 07/31/18 07/31/18 07/31/18 10:15 10:30 11:00 Temperature Pulse Rate 63 71 64 Respiratory 19 13 17 Rate Blood Pressure 116/80 140/91 138/79 (mmHg) O2 Sat by Pulse 95 98 96 Oximetry 07/31/18 07/31/18 07/31/18 11:15 11:30 11:45 Temperature Pulse Rate 65 62 60 Respiratory 18 15 21 Rate Blood Pressure 141/68 138/81 126/72 (mmHg) O2 Sat by Pulse 95 95 96 Oximetry 07/31/18 07/31/18 07/31/18 12:00 12:01 12:30 Temperature 99.7 F Pulse Rate 62 64 55 Respiratory 20 17 16 Rate Blood Pressure 130/81 119/63 (mmHg) O2 Sat by Pulse 96 96 95 Oximetry 07/31/18 07/31/18 07/31/18 13:00 13:01 13:30 Temperature Pulse Rate 50 56 52 Respiratory 17 14 13 Rate Blood Pressure 111/57 113/60 (mmHg) O2 Sat by Pulse 95 95 95 Oximetry 07/31/18 07/31/18 07/31/18 14:00 14:01 14:30 Temperature Pulse Rate 53 54 60 Respiratory 18 21 15 Rate Blood Pressure 110/60 138/74 (mmHg) O2 Sat by Pulse 97 96 98 Oximetry 07/31/18 07/31/18 15:00 15:01 Temperature Pulse Rate 66 70 Respiratory 17 20 Rate Blood Pressure 136/76 (mmHg) O2 Sat by Pulse 95 96 Oximetry Oxygen Devices in Use Now: None Appearance: alert, NAD Eyes: PERRLA Ears/Nose/Mouth/Throat: Mucous Membranes Moist Neck: NL Appearance and Movements; NL JVP Respiratory: Symmetrical Chest Expansion and Respiratory Effort, Clear to Auscultation Cardiovascular: NL Sounds; No Murmurs; No JVD, No Edema Neurological: - - alert Nutrition: Taking PO's Result Diagrams: 07/31/18 00:06 07/31/18 00:06 Microbiology and Other Data: Microbiology 07/31/18 06:30 Nasal Screen MRSA (PCR) - Final Nasal Mrsa Not Detected Diagnostic Imaging: REPEAT CT BRAIN: [facility] Patient Name:RACHEL ARELLANO MR: [id number] : 1935 IMPRESSION: 1. Stable or slightly smaller volume of subarachnoid hemorrhage involving the left frontal lobe relative to the most recent CT of the brain acquired at 0343 hours. 2. Degenerative disc disease of the cervical spine without acute fracture or dislocation. 3. In the left lobe of the thyroid there is a 1.6 cm hypoattenuating focus with a Hounsfield unit slightly greater than that of a simple cyst. On a nonemergent basis superior characterization of the thyroid can be made with ultrasound. 4. Additional chronic and degenerative changes described in the body the report. Assess/Plan/Problems-Billing Assessment: This is an 83 year old female on anticoagulation with coumadin and supratherapeutic INR that sustained a fall with subsequent subarachnoid hemorrhage. - Patient Problems (1) Subarachnoid hemorrhage Code(s): I60.9 - NONTRAUMATIC SUBARACHNOID HEMORRHAGE, UNSPECIFIED SNOMED Code (s): 204400350 Comment: - Repeat CT as above, no surgical intervention as per neurosurgery - s/p one dose vit K and 1 unit FFP - INR down to 1.72 iwth goal 1.4 or lower as per neurosurgery - Will give additional dose K and recheck INR at 1800 (2) Atrial fibrillation Code(s): I48.91 - UNSPECIFIED ATRIAL FIBRILLATION SNOMED Code(s): 26845282 Comment: - Controlled on BB - Hold coumadin (3) Hx of ischemic left MCA stroke Code(s): Z86.73 - PRSNL HX OF TIA (TIA), AND CEREB INFRC W/O RESID DEFICITS SNOMED Code(s): 504026793 Comment: - In 2012 with residual expressive aphasia and right sided weakness currently at baseline - Continue statin (4) Hypertension Code(s): I10 - ESSENTIAL (PRIMARY) HYPERTENSION SNOMED Code(s): 89578614 Comment: - Stable on metoprolol - Lopressor IV PRN hypertension in light of ICH (5) Seizure disorder Code(s): G40.909 - EPILEPSY, UNSP, NOT INTRACTABLE, WITHOUT STATUS EPILEPTICUS SNOMED Code(s): 343817243 Comment: - No evidence of seizure activity since admission - Continue keppra, lamictal (6) DVT prophylaxis Code(s): SSV6950 - SNOMED Code(s): 193416233 Comment: - SCDs only (7) Full code status Code(s): Z78.9 - OTHER SPECIFIED HEALTH STATUS SNOMED Code(s): 752942444 Comment: - Confirmed with family, they wish to keep full code status Status and Disposition: Inpatient ICU. Dispo as per neurosurgery, but will be DC back to [facility] when medically cleared.
[2018-07-31] MEDS: Atorvastatin* 20 MG TAB PO SCH (19:12)
[2018-07-31 19:40] LABS: INR 1.27 (0.77-1.02)
[2018-07-31] MEDS ORDERED: NS 0.9% 500 ML* 500 ML IV ONE (23:45)
[2018-08-01 05:58] LABS: ABS Basophils 0.1 10^3/ul (0-0.2); ABS Eosinophils 0.4 10^3/ul (0-0.6); ABS Monocytes 0.7 10^3/ul (0-0.8); ABS Nucleated RBC 0 10^3/ul; Eosinophil % 6.5 %; Hematocrit 37 % (35-47); Hemoglobin 12.4 g/dl (12.0-16.0); Lymphocyte % 16.2 %; Mean Corpuscular HGB Conc 33 g/dl (31-36); Mean Corpuscular Hemoglobin 30 pg (27-31); Mean Corpuscular Volume 92 fL (80-97); Mean Platelet Volume 8.6 fL (7.4-10.4); Nucleated Red Blood Cells % 0.1; Platelet Count 196 10^3/ul (150-450); Red Blood Count 4.09 10^6/ul (4.00-5.40); Red Cell Distribution Width 14 % (10.5-15); White Blood Count 6.2 10^3/ul (3.5-10.8)
[2018-08-01 06:02] LABS: INR 1.14 (0.77-1.02)
[2018-08-01 06:13] LABS: BUN/Creatinine Ratio 15.5 (8-20); EGFR African American 119.6 (>60); EGFR Non-African American 98.8 (>60); Potassium 3.4 mmol/L (3.5-5.0)
[2018-08-01] MEDS: Acetaminophen TAB* 325 MG PO PRN ×3 (06:33→15:33)
--- NOTE | 2018-08-01 08:30 | PN ---
Subjective Date of Service: 08/01/18 Interval History: Ms. Cisneros was seen in her room. She is alert and able to appropriately answer questions, though she has some expressive aphasia. She states she had difficulty finding the right position to sleep last night and endorses low back pain that extends down the right leg. She states the back pain is not new and that she has had knee pain in the past. She does have abrasions to the right knee. She is not sure if she fell on it or if it is secondary to crawling on her knees after she fell. Denies headache, CP, SOB, n/v or other concern at this time. Tele: NSR 60 Family History: Unchanged from Admission Social History: Unchanged from Admission Past Medical History: Unchanged from Admission Objective Active Medications: Acetaminophen (Tylenol Tab*) 650 mg PO Q4H PRN PRN Reason: FEVER/PAIN Last Admin: 08/01/18 06:33 Dose: 650 mg Atorvastatin Calcium (Lipitor*) 20 mg PO 1700 [facility] Last Admin: 07/31/18 19:12 Dose: 20 mg Sodium Chloride (Ns 0.9% 1000 Ml) 1,000 mls @ 75 mls/hr IV PER RATE [facility] Last Admin: 07/31/18 22:47 Dose: 75 mls/hr Lamotrigine (Lamictal Xr (Nf)) 200 mg PO BID [facility] Last Admin: 07/31/18 20:37 Dose: 200 mg Levetiracetam (Keppra Xr (Nf)) 750 mg PO DAILY [facility]; Protocol Last Admin: 07/31/18 11:33 Dose: Not Given Metoprolol Succinate (Toprol Xl Tab*) 25 mg PO DAILY [facility] Last Admin: 07/31/18 14:21 Dose: 25 mg Metoprolol Tartrate (Lopressor Iv*) 5 mg IV Q6H PRN PRN Reason: BLOOD PRESSURE Mirabegron (Myrbetriq (Nf)) 25 mg PO DAILY [facility] Last Admin: 07/31/18 11:33 Dose: Not Given Potassium Chloride (Klor-Con Liquid*) 20 meq PO DAILY [facility] Timolol Maleate (Timoptic 0.5% Opth*) 1 drop BOTH EYES BID [facility] Last Admin: 07/31/18 20:46 Dose: 1 drop Vital Signs - 8 hr 08/01/18 08/01/18 08/01/18 00:30 01:00 01:01 Temperature Pulse Rate 54 54 55 Respiratory 13 13 14 Rate Blood Pressure 102/55 95/52 (mmHg) O2 Sat by Pulse 95 95 94 Oximetry 08/01/18 08/01/18 08/01/18 01:30 02:00 02:30 Temperature Pulse Rate 55 60 57 Respiratory 15 19 13 Rate Blood Pressure 112/59 127/65 95/53 (mmHg) O2 Sat by Pulse 96 96 95 Oximetry 08/01/18 08/01/18 08/01/18 03:00 03:30 04:00 Temperature 98.5 F Pulse Rate 59 56 63 Respiratory 16 11 14 Rate Blood Pressure 113/59 115/61 (mmHg) O2 Sat by Pulse 96 95 94 Oximetry 08/01/18 08/01/18 08/01/18 04:01 04:30 05:00 Temperature Pulse Rate 60 55 54 Respiratory 21 13 13 Rate Blood Pressure 137/78 106/52 96/46 (mmHg) O2 Sat by Pulse 94 94 94 Oximetry 08/01/18 08/01/18 08/01/18 05:01 05:30 06:00 Temperature Pulse Rate 55 54 56 Respiratory 15 13 16 Rate Blood Pressure 125/55 133/66 (mmHg) O2 Sat by Pulse 94 96 94 Oximetry 08/01/18 08/01/18 08/01/18 06:01 06:48 07:00 Temperature Pulse Rate 58 55 56 Respiratory 13 14 15 Rate Blood Pressure 133/76 146/79 (mmHg) O2 Sat by Pulse 94 95 96 Oximetry 08/01/18 08/01/18 07:01 07:16 Temperature 99.2 F Pulse Rate 54 Respiratory 16 15 Rate Blood Pressure (mmHg) O2 Sat by Pulse 96 Oximetry Oxygen Devices in Use Now: None Appearance: Elderly female, lying in bed, NAD Eyes: No Scleral Icterus, PERRLA Ears/Nose/Mouth/Throat: Clear Oropharnyx, Mucous Membranes Moist Neck: NL Appearance and Movements; NL JVP Respiratory: Symmetrical Chest Expansion and Respiratory Effort, Clear to Auscultation Cardiovascular: NL Sounds; No Murmurs; No JVD, RRR Abdominal: NL Sounds; No Tenderness; No Distention Extremities: No Clubbing, Cyanosis, - - right knee joint effusion Neurological: - - mild right Alert, facial droop, chronic; expressive aphasia but responds appropriately, equal manager sterile bilaterally Lines/Tubes/Other Access: Clean, Dry and Intact Lara Nutrition: Taking PO's Result Diagrams: 08/01/18 05:40 08/01/18 05:40 Microbiology and Other Data: Microbiology 07/31/18 06:30 Nasal Screen MRSA (PCR) - Final Nasal Mrsa Not Detected Diagnostic Imaging: REPEAT CT BRAIN: [facility] Patient Name:RACHEL CISNEROS MR: [id number] : 1935 IMPRESSION: 1. Stable or slightly smaller volume of subarachnoid hemorrhage involving the left frontal lobe relative to the most recent CT of the brain acquired at 0343 hours. 2. Degenerative disc disease of the cervical spine without acute fracture or dislocation. 3. In the left lobe of the thyroid there is a 1.6 cm hypoattenuating focus with a Hounsfield unit slightly greater than that of a simple cyst. On a nonemergent basis superior characterization of the thyroid can be made with ultrasound. 4. Additional chronic and degenerative changes described in the body the report. Assess/Plan/Problems-Billing Assessment: This is an 83 year old female on anticoagulation with coumadin and supratherapeutic INR that sustained a fall with subsequent subarachnoid hemorrhage. - Patient Problems (1) Subarachnoid hemorrhage Code(s): I60.9 - NONTRAUMATIC SUBARACHNOID HEMORRHAGE, UNSPECIFIED Comment: - Repeat CT this morning shows stable SAH, no surgical intervention as per neurosurgery - s/p vit K and 1 unit FFP - INR down to 1.14 with goal 1.4 or lower as per neurosurgery (2) Atrial fibrillation Code(s): I48.91 - UNSPECIFIED ATRIAL FIBRILLATION Comment: - Controlled on BB - Hold coumadin (3) Hx of ischemic left MCA stroke Status: Chronic Code(s): Z86.73 - PRSNL HX OF TIA (TIA), AND CEREB INFRC W/O RESID DEFICITS Comment: - In 2013 with residual expressive aphasia and right sided weakness currently at baseline - Continue statin (4) Hypertension Code(s): I10 - ESSENTIAL (PRIMARY) HYPERTENSION Comment: - Stable on metoprolol - Lopressor IV PRN hypertension in light of ICH (5) Seizure disorder Code(s): G40.909 - EPILEPSY, UNSP, NOT INTRACTABLE, WITHOUT STATUS EPILEPTICUS Comment: - No evidence of seizure activity since admission - Continue keppra, lamictal (6) DVT prophylaxis Comment: - SCDs only, anticoagulation contraindicated in setting of acute hemorrhage (7) Full code status Code(s): Z78.9 - OTHER SPECIFIED HEALTH STATUS Comment: - Confirmed with family, they wish to keep full code status Status and Disposition: Inpatient ICU. Transfer to medicine floor today, as CT remains stable. Dispo as per neurosurgery. Patient does not reside at [facility] but was previously living in the independent units. PT/OT consults requested. Attending: Michelet Griffin
[2018-08-01] MEDS: Mirabegron (NF) 25 MG TAB PO SCH (08:44)
[2018-08-01] MEDS: CMCS:Levetiracetam XR TAB(NF) 750 MG TAB.XR PO SCH (08:45)
[2018-08-01] MEDS: Potassium Chloride LIQUID* 20 MEQ PACKET PO SCH (08:45)
[2018-08-01] MEDS: Timolol 0.5% OPTH.SOL* BTL BOTH EYES SCH ×2 (08:45→21:10)
[2018-08-01] MEDS: LAMOTRIGINE 200 MG PO SCH ×2 (08:45→21:12)
[2018-08-01] MEDS: Metoprolol Succinate XL TAB* 25 MG PO SCH (08:45)
--- NOTE | 2018-08-01 11:23 | CONS ---
CONSULTATION REPORT: DATE OF CONSULT: 07/31/18 HISTORY OF PRESENT ILLNESS: The patient is a very pleasant 83-year-old female with a history of CVA with residual expressive aphasia and right sided mild weakness who was admitted to the hospital after reporting she sustained 2 falls in her assisted living facility. I was requested to see the patient by Dr. Barragan because of the CT scan finding consistent with a small frontal traumatic subarachnoid hemorrhage. The patient reports that she does not recall the details of the fall. She denies any loss of consciousness or loss of memory. She denies any neck or back pain. She denies any weakness, numbness, or tingling of her extremities with exception of chronic weakness in the right side of her body after her CVA. The patient denies any urinary or GI incontinence, but reports some mild difficulty with her walking. PAST MEDICAL HISTORY: CVA with right-sided weakness and expressive aphasia; seizure disorder; atrial fibrillation, on Coumadin, and osteoporosis. MEDICATIONS: The patient was on: 1. Tylenol. 2. Vitamin D. 3. Denosumab. 4. Centrum. 5. Atorvastatin. 6. Lamotrigine. 7. Keppra. 8. Toprol. 9. Mirabegron. 10. Timolol. 11. Coumadin. SOCIAL HISTORY: The patient denies tobacco, alcohol, or recreational drug use. The patient lives in [place]. PHYSICAL EXAM: The patient was examined in the ICU on the morning of presentation. The patient is awake, alert, and oriented x3. His pupils are equal and reactive. Cranial nerves II through XII are grossly intact. Motor is 4-5/5 in all extremities. The patient does have a mild right-sided drift, does report her right- sided weakness because of CVA. Sensory is grossly intact to light touch. Deep tendon reflexes +1 bilaterally. No clonus. No Babinski's. Gifty is negative. Patient has no tenderness to palpation in the thoracic or lumbar spine. He has free range of motion of the cervical spine. DIAGNOSTIC STUDIES/LAB DATA: The patient had a CT scan of the brain that revealed a very small traumatic subarachnoid hemorrhage in the left frontal region. There is also evidence of encephalomalacia in the left posterior frontal and left parietal regions, possibly due to an old infarct. ASSESSMENT: The patient is a pleasant 83-year-old female with history of falls , with CT scan findings consistent with a left frontal subarachnoid hemorrhage. The patient was on Coumadin for atrial fibrillation. PLAN: The patient at this point is doing extremely well. We have advised reversal of her coagulopathy and monitor her INR. The patient has already got seizure prophylaxis. A repeat scan of the brain did not show any significant progression of subarachnoid hemorrhage. We will monitor clinically and repeat the CT scan in 1 or 2 days prior to transfer from the ICU. Thank you for allowing us to participate in the care of this patient. Please do not hesitate to contact our office in case you have any further questions or concerns regarding the care of this patient. [id number]/[facility] #: [id number]
[2018-08-01] MEDS: Atorvastatin* 20 MG TAB PO SCH (16:00)
--- NOTE | 2018-08-02 05:06 | PN ---
Progress Note - Progress Note Date of Service: 08/01/18 SOAP: Subjective: []Patient was transferred to the floor. No events ON. Tolerates PO. Lara. Daughter at the bedside. Objective: []VSS AAO. FARTUN, CN II-XII grossly intact. Mild aphasia Motor 4-5/5 Rt side, 5/5 Lt side. Sensory grossly intact to light touch, except baseline decreased sensation Rt UE Assessment: [] 83 yof fall Left frontal traumatic SAH, on Coumadin Plan: []Monitor VS, Neurcheck Repeat CT stable. Regarding restarting anticoagulation safer option would be starting in 1 month If medically necessary 2 weeks would be reasonable. Discussed with patient's daughter in extend regarding CT findings, risks and benefits of holding anticoagulation therapy and timing options. Patient's daughter understands and is agreeable with proposed plan. Patient is followed by Dr Mercado for previous CVA. If patient's back pain persists, MRI of Lumbar spine may be considered. Appreciate IM care. Will be always available if needed. MD Walker
[2018-08-02] MEDS: LAMOTRIGINE 200 MG PO SCH ×2 (09:28→20:50)
[2018-08-02] MEDS: Timolol 0.5% OPTH.SOL* BTL BOTH EYES SCH ×2 (09:29→20:51)
[2018-08-02] MEDS: Metoprolol Succinate XL TAB* 25 MG PO SCH (09:29)
[2018-08-02] MEDS: CMCS:Levetiracetam XR TAB(NF) 750 MG TAB.XR PO SCH (09:29)
[2018-08-02] MEDS: Potassium Chloride LIQUID* 20 MEQ PACKET PO SCH (09:29)
[2018-08-02] MEDS: Mirabegron (NF) 25 MG TAB PO SCH (09:29)
[2018-08-02] MEDS: Acetaminophen TAB* 325 MG PO PRN (09:30)
--- NOTE | 2018-08-02 10:59 | PN ---
Subjective Date of Service: 08/02/18 Interval History: Ms. Cisneros was seen in room, she is OOB to chair. Son, Guille, is accompanying her. He expressed concern for right arm numbness that was increased this morning ; however, Ms. Cisneros states that she has had this since her stroke many years ago and that it was not any worse than normal (has waxing and waning symptoms in the extremity). However, she continues to endorse increased radiating pain and numbness in the low back and down the right lower extremity. Her son states that this may have contributed to the initial fall. None of her symptoms here have worsened or changed; it appears that the weakness contributed to the fall though it was not initially clear if the bleeding led to the fall initially ( also noted in H and P). She has been able to ambulate with assist but states she does feel a bit weaker. She has not yet had MRI of lumbar spine. She did not previously have a pizano though had concern for urine retention on admission. She states she has an overactive bladder at baseline. Denies any other complaints or concerns. Family History: Unchanged from Admission Social History: Unchanged from Admission Past Medical History: Unchanged from Admission Objective Active Medications: Acetaminophen (Tylenol Tab*) 650 mg PO Q4H PRN PRN Reason: FEVER/PAIN Last Admin: 08/02/18 09:30 Dose: 650 mg Atorvastatin Calcium (Lipitor*) 20 mg PO 1700 [facility] Last Admin: 08/01/18 16:00 Dose: 20 mg Lamotrigine (Lamictal Xr (Nf)) 200 mg PO BID [facility] Last Admin: 08/02/18 09:28 Dose: 200 mg Levetiracetam (Keppra Xr (Nf)) 750 mg PO DAILY [facility]; Protocol Last Admin: 08/02/18 09:29 Dose: 750 mg Metoprolol Succinate (Toprol Xl Tab*) 25 mg PO DAILY [facility] Last Admin: 08/02/18 09:29 Dose: 25 mg Metoprolol Tartrate (Lopressor Iv*) 5 mg IV Q6H PRN PRN Reason: BLOOD PRESSURE Mirabegron (Myrbetriq (Nf)) 25 mg PO DAILY [facility] Last Admin: 08/02/18 09:29 Dose: Not Given Potassium Chloride (Klor-Con Liquid*) 20 meq PO DAILY [facility] Last Admin: 08/02/18 09:29 Dose: 20 meq Timolol Maleate (Timoptic 0.5% Opth*) 1 drop BOTH EYES BID [facility] Last Admin: 08/02/18 09:29 Dose: 1 drop Vital Signs - 8 hr 08/02/18 08/02/18 08/02/18 03:01 03:05 07:05 Temperature 98.1 F 97.9 F Pulse Rate 61 66 59 Respiratory 16 16 Rate Blood Pressure 152/67 143/65 (mmHg) O2 Sat by Pulse 98 97 Oximetry 08/02/18 08:00 Temperature Pulse Rate Respiratory 20 Rate Blood Pressure (mmHg) O2 Sat by Pulse Oximetry Oxygen Devices in Use Now: None Appearance: Elderly female, sitting up in chair, NAD Eyes: No Scleral Icterus, PERRLA Ears/Nose/Mouth/Throat: Clear Oropharnyx, Mucous Membranes Moist Neck: NL Appearance and Movements; NL JVP Respiratory: Symmetrical Chest Expansion and Respiratory Effort, Clear to Auscultation Cardiovascular: NL Sounds; No Murmurs; No JVD, RRR Abdominal: NL Sounds; No Tenderness; No Distention Extremities: No Edema, No Clubbing, Cyanosis Neurological: Alert and Oriented x 3 - with expressive aphasia but able to communicate and make needs known Lines/Tubes/Other Access: Clean, Dry and Intact Peripheral IV Nutrition: Taking PO's Result Diagrams: 08/01/18 05:40 08/01/18 05:40 Microbiology and Other Data: Microbiology 07/31/18 06:30 Nasal Screen MRSA (PCR) - Final Nasal Mrsa Not Detected Diagnostic Imaging: REPEAT CT BRAIN: [facility] Patient Name:RACHEL CISNEROS MR: [id number] : 1935 IMPRESSION: 1. Stable or slightly smaller volume of subarachnoid hemorrhage involving the left frontal lobe relative to the most recent CT of the brain acquired at 0343 hours. 2. Degenerative disc disease of the cervical spine without acute fracture or dislocation. 3. In the left lobe of the thyroid there is a 1.6 cm hypoattenuating focus with a Hounsfield unit slightly greater than that of a simple cyst. On a nonemergent basis superior characterization of the thyroid can be made with ultrasound. 4. Additional chronic and degenerative changes described in the body the report. Assess/Plan/Problems-Billing Assessment: This is an 83 year old female on anticoagulation with coumadin and supratherapeutic INR that sustained a fall with subsequent subarachnoid hemorrhage. - Patient Problems (1) Subarachnoid hemorrhage Code(s): I60.9 - NONTRAUMATIC SUBARACHNOID HEMORRHAGE, UNSPECIFIED Comment: - Repeat CT 08/01 shows stable SAH, no surgical intervention as per neurosurgery - s/p vit K and 1 unit FFP - INR down to 1.14 with goal 1.4 or lower as per neurosurgery - Neurosurgery recommends holding anticoagulation preferably for one month, though 2 weeks would be acceptable. (2) Lumbar radicular pain Code(s): M54.16 - RADICULOPATHY, LUMBAR REGION Comment: Recently worsening and still an active complaint Plan to check MRI lumbar spine Continue PT/OT as tolerated (3) Urinary retention Code(s): R33.9 - RETENTION OF URINE, UNSPECIFIED Comment: Noted to have 700 mL in bladder on admission No evidence of UTI Trial discontinuation of catheter (as this is new) with qshift bladder scans Question if lumbar pain is contributing to presentation Prior to admission, she reports having an overactive bladder (unclear if this is 2/2 incomplete emptying). (4) Atrial fibrillation Code(s): I48.91 - UNSPECIFIED ATRIAL FIBRILLATION Comment: - Controlled on BB - Hold coumadin (5) Hx of ischemic left MCA stroke Status: Chronic Code(s): Z86.73 - PRSNL HX OF TIA (TIA), AND CEREB INFRC W/O RESID DEFICITS Comment: - In 2012 with residual expressive aphasia and right sided weakness currently at baseline - Continue statin (6) Hypertension Code(s): I10 - ESSENTIAL (PRIMARY) HYPERTENSION Comment: - Stable on metoprolol but trending up. Increase metoprolol to 37.5 and monitor. - Continue Lopressor IV PRN hypertension in light of ICH (7) Seizure disorder Code(s): G40.909 - EPILEPSY, UNSP, NOT INTRACTABLE, WITHOUT STATUS EPILEPTICUS Comment: - No evidence of seizure activity since admission - Continue kebrittany lamictal (8) DVT prophylaxis Comment: - SCDs only, anticoagulation contraindicated in setting of acute hemorrhage (9) Full code status Code(s): Z78.9 - OTHER SPECIFIED HEALTH STATUS Comment: - Confirmed with family, they wish to keep full code status Status and Disposition: Inpatient ICU. Transfer to medicine floor today, as CT remains stable. Dispo as per neurosurgery. Patient does not reside at [facility] but was previously living in the independent units. PT/OT consults requested. Attending: Michelet Griffin
[2018-08-02] MEDS: Atorvastatin* 20 MG TAB PO SCH (16:29)
[2018-08-03] MEDS: LAMOTRIGINE 200 MG PO SCH ×2 (08:09→21:23)
[2018-08-03] MEDS: CMCS:Levetiracetam XR TAB(NF) 750 MG TAB.XR PO SCH (08:09)
[2018-08-03] MEDS: Potassium Chloride LIQUID* 20 MEQ PACKET PO SCH (08:09)
[2018-08-03] MEDS: Mirabegron (NF) 25 MG TAB PO SCH (08:10)
[2018-08-03] MEDS: Metoprolol Succinate XL TAB* 25 MG PO SCH (08:10)
[2018-08-03] MEDS: Timolol 0.5% OPTH.SOL* BTL BOTH EYES SCH ×2 (08:10→21:25)
--- NOTE | 2018-08-03 11:30 | PN ---
Subjective Date of Service: 08/03/18 Interval History: No overnight events. Son at the bedside. Continues to have this right sided pain that radiates at the hip down to knee and in the low back b/l. Does not seem to have any further urinary retention. Tolerating PO. No CP or SOB. States this all started with significant pain in hip/knee and back which led to fall. Family History: Unchanged from Admission Social History: Unchanged from Admission Past Medical History: Unchanged from Admission Objective Active Medications: Acetaminophen (Tylenol Tab*) 650 mg PO Q6HR [facility] Atorvastatin Calcium (Lipitor*) 20 mg PO 1700 [facility] Last Admin: 08/02/18 16:29 Dose: 20 mg Lamotrigine (Lamictal Xr (Nf)) 200 mg PO BID [facility] Last Admin: 08/03/18 08:09 Dose: 200 mg Levetiracetam (Keppra Xr (Nf)) 750 mg PO DAILY [facility]; Protocol Last Admin: 08/03/18 08:09 Dose: 750 mg Metoprolol Succinate (Toprol Xl Tab*) 37.5 mg PO DAILY [facility] Last Admin: 08/03/18 08:10 Dose: 37.5 mg Metoprolol Tartrate (Lopressor Iv*) 5 mg IV Q6H PRN PRN Reason: BLOOD PRESSURE Mirabegron (Myrbetriq (Nf)) 25 mg PO DAILY [facility] Last Admin: 08/03/18 08:10 Dose: Not Given Timolol Maleate (Timoptic 0.5% Opth*) 1 drop BOTH EYES BID [facility] Last Admin: 08/03/18 08:10 Dose: 1 drop Vital Signs - 8 hr 08/03/18 08/03/18 07:16 07:22 Temperature 97.7 F Pulse Rate 62 Respiratory 20 16 Rate Blood Pressure 166/66 (mmHg) O2 Sat by Pulse 97 Oximetry Oxygen Devices in Use Now: None Ears/Nose/Mouth/Throat: Mucous Membranes Moist Respiratory: Symmetrical Chest Expansion and Respiratory Effort, Clear to Auscultation Cardiovascular: RRR, - - soft murmur Abdominal: NL Sounds; No Tenderness; No Distention, No Hepatosplenomegaly Neurological: Alert and Oriented x 3, NL Muscle Strength and Tone, - - generalized weakness Result Diagrams: 08/01/18 05:40 08/01/18 05:40 Microbiology and Other Data: Microbiology 07/31/18 06:30 Nasal Screen MRSA (PCR) - Final Nasal Mrsa Not Detected Diagnostic Imaging: REPEAT CT BRAIN: [facility] Patient Name:RACHEL ARELLANO MR: [id number] : 1935 IMPRESSION: 1. Stable or slightly smaller volume of subarachnoid hemorrhage involving the left frontal lobe relative to the most recent CT of the brain acquired at 0343 hours. 2. Degenerative disc disease of the cervical spine without acute fracture or dislocation. 3. In the left lobe of the thyroid there is a 1.6 cm hypoattenuating focus with a Hounsfield unit slightly greater than that of a simple cyst. On a nonemergent basis superior characterization of the thyroid can be made with ultrasound. 4. Additional chronic and degenerative changes described in the body the report. Assess/Plan/Problems-Billing Assessment: This is an 83 year old female with PMHx of atrial fibrillation on coumadin who presented from [facility], who had a suspected mechanical fall, found to have a SAH transferred out of ICU . - Patient Problems (1) Lumbar radicular pain Current Visit: Yes Status: Acute Code(s): M54.16 - RADICULOPATHY, LUMBAR REGION SNOMED Code(s): 568214070 Comment: A. Able to ambulate but continues to have pain, and suspect this has contributed to her weakness and fall Plan CT of lumbar spine and pelvis to R/O Fx - if negative for acute finding will continue with getting the MRI Switch to scheduled tylenol Plan to check MRI lumbar spine Continue PT/OT as tolerated Will have them re-evaluate in AM to determine if patient is eligible to return to assisted living at [facility] (2) Subarachnoid hemorrhage Current Visit: Yes Status: Acute Code(s): I60.9 - NONTRAUMATIC SUBARACHNOID HEMORRHAGE, UNSPECIFIED SNOMED Code(s): 438245789 Comment: A: suspect its secondary to fall. - Repeat CT 08/01 shows stable SAH, no surgical intervention as per neurosurgery - s/p vit K and 1 unit FFP - INR down to 1.14 with goal 1.4 or lower as per neurosurgery - Neurosurgery recommends holding anticoagulation preferably for one month, though 2 weeks would be acceptable - resume as long as patient is stable. Question if she remains a candidate with her age and deconditioning. Also patient has been in NSR. (3) Urinary retention Current Visit: Yes Status: Acute Code(s): R33.9 - RETENTION OF URINE, UNSPECIFIED SNOMED Code(s): 681078308 Comment: A. Awaiting check this AM. If no retention will d/c bladder scan Could be related to constipation Continue Myrbetriq Bowel regimen (4) Atrial fibrillation Current Visit: No Status: Chronic Priority: Medium Code(s): I48.91 - UNSPECIFIED ATRIAL FIBRILLATION SNOMED Code(s): 68598038 Comment: Currently in NSR Continue Metoprolol - Hold coumadin (5) Hx of ischemic left MCA stroke Current Visit: No Status: Chronic Priority: High Code(s): Z86.73 - PRSNL HX OF TIA (TIA), AND CEREB INFRC W/O RESID DEFICITS SNOMED Code(s): 069759166 Comment: - In 2012 with residual expressive aphasia and right sided weakness currently at baseline - Continue statin Holding anticoagulation (6) Hypertension Current Visit: No Status: Chronic Priority: Medium Code(s): I10 - ESSENTIAL (PRIMARY) HYPERTENSION SNOMED Code(s): 27690686 Comment: - Stable on metoprolol but trending up. Increase metoprolol to 37.5 and monitor. - Continue Lopressor IV PRN hypertension in light of ICH (7) Seizure disorder Current Visit: No Status: Chronic Priority: Medium Code(s): G40.909 - EPILEPSY, UNSP, NOT INTRACTABLE, WITHOUT STATUS EPILEPTICUS SNOMED Code(s): 653710430 Comment: - No evidence of seizure activity since admission - Continue keppra, lamictal (8) Full code status Current Visit: No Status: Acute Priority: High Code(s): Z78.9 - OTHER SPECIFIED HEALTH STATUS SNOMED Code(s): 891051405 Comment: - Confirmed with family, they wish to keep full code status (9) DVT prophylaxis Current Visit: No Status: Acute Priority: High Code(s): DMW3363 - SNOMED Code(s): 518556803 Comment: - SCDs only, anticoagulation contraindicated in setting of acute hemorrhage Status and Disposition: Inpatient ICU. Per son, Patient is in assisted living at [facility]. Will need to sort this out for sure and determine the safest discharge plan following work up of her hip/back pain and repeat PT re-eval in AM
[2018-08-03] MEDS ORDERED: Senna TAB PO PRN (11:36)
[2018-08-03] MEDS: Acetaminophen TAB* 325 MG PO SCH ×2 (14:59→21:24)
[2018-08-03] MEDS: Atorvastatin* 20 MG TAB PO SCH (18:05)
[2018-08-03] MEDS: Docusate CAP* 100 MG PO SCH (21:25)
[2018-08-04] MEDS: Acetaminophen TAB* 325 MG PO SCH ×4 (04:33→21:03)
[2018-08-04] MEDS: Metoprolol Succinate XL TAB* 25 MG PO SCH (08:49)
[2018-08-04] MEDS: Timolol 0.5% OPTH.SOL* BTL BOTH EYES SCH ×2 (08:50→21:07)
[2018-08-04] MEDS: CMCS:Levetiracetam XR TAB(NF) 750 MG TAB.XR PO SCH (08:50)
[2018-08-04] MEDS: Docusate CAP* 100 MG PO SCH ×2 (08:50→21:03)
[2018-08-04] MEDS: LAMOTRIGINE 200 MG PO SCH ×2 (08:50→21:04)
[2018-08-04] MEDS: Mirabegron (NF) 25 MG TAB PO SCH (08:51)
[2018-08-04] MEDS: Atorvastatin* 20 MG TAB PO SCH (17:14)
--- NOTE | 2018-08-04 18:26 | PN ---
Subjective Date of Service: 08/04/18 Interval History: Patient seen and examined at bedside. Denies fever, chills, shortness of breath , chest discomfort, N/V/D, constipation. She reports that she is urinating frequently. She is able to ambulate with assistance and a walker but has a significant amount of right LE pain. She reports pain that starts in her back and radiates down her right leg. This pain is worse when first getting up out of a chair to ambulate. Her son was at bedside. We discussed the findings of the MRI and the plan to have neurosurgery consult. Tele: Sinus rhythm, rate 60's. Family History: Unchanged from Admission Social History: Unchanged from Admission Past Medical History: Unchanged from Admission Objective Active Medications: Acetaminophen (Tylenol Tab*) 650 mg PO Q6H [facility] Atorvastatin Calcium (Lipitor*) 20 mg PO 1700 [facility] Docusate Sodium (Colace Cap*) 100 mg PO BID [facility] Lamotrigine (Lamictal Xr (Nf)) 200 mg PO BID [facility] Levetiracetam (Keppra Xr (Nf)) 750 mg PO DAILY [facility]; Protocol Metoprolol Succinate (Toprol Xl Tab*) 37.5 mg PO DAILY [facility] Metoprolol Tartrate (Lopressor Iv*) 5 mg IV Q6H PRN Reason: BLOOD PRESSURE Mirabegron (Myrbetriq (Nf)) 25 mg PO DAILY [facility] Senna (Senokot Tab*) 1 tab PO BEDTIME PRN Reason: CONSTIPATION Timolol Maleate (Timoptic 0.5% Opth*) 1 drop BOTH EYES BID [facility] Vital Signs - 8 hr 08/04/18 08/04/18 11:53 15:07 Temperature 97.9 F 98.7 F Pulse Rate 58 64 Respiratory 18 16 Rate Blood Pressure 134/76 109/62 (mmHg) O2 Sat by Pulse 97 97 Oximetry Oxygen Devices in Use Now: None Appearance: NAD, sitting up in bed Ears/Nose/Mouth/Throat: Mucous Membranes Moist Respiratory: Symmetrical Chest Expansion and Respiratory Effort, Clear to Auscultation Cardiovascular: NL Sounds; No Murmurs; No JVD, RRR Abdominal: NL Sounds; No Tenderness; No Distention Neurological: Alert and Oriented x 3, NL Muscle Strength and Tone, - - Strong dorsi and plantar flexion bilateral Nutrition: Taking PO's Result Diagrams: 08/01/18 05:40 08/01/18 05:40 Microbiology and Other Data: Microbiology 07/31/18 06:30 Nasal Screen MRSA (PCR) - Final Nasal Mrsa Not Detected Diagnostic Imaging: REPEAT CT BRAIN: IMPRESSION: 1. Stable or slightly smaller volume of subarachnoid hemorrhage involving the left frontal lobe relative to the most recent CT of the brain acquired at 0343 hours. 2. Degenerative disc disease of the cervical spine without acute fracture or dislocation. 3. In the left lobe of the thyroid there is a 1.6 cm hypoattenuating focus with a Hounsfield unit slightly greater than that of a simple cyst. On a nonemergent basis superior characterization of the thyroid can be made with ultrasound. 4. Additional chronic and degenerative changes described in the body the report. Assess/Plan/Problems-Billing Assessment: This is an 83 year old female with PMHx of atrial fibrillation on Coumadin, aphasia, seizure, Afib, and osteoporosis who presented from [place] assisted living, who had a suspected mechanical fall, and was found to have a SAH. - Patient Problems (1) Lumbar radicular pain Code(s): M54.16 - RADICULOPATHY, LUMBAR REGION SNOMED Code(s): 453661830 Comment: - Able to ambulate but continues to have pain, and suspect this has contributed to her weakness and fall - CT of lumbar spine and pelvis - negative for acute finding - MRI of the lumbar spine with L3-4 posterolateral disc extrusion likely impinging upon the right decending and right exiting nerve root at L 3-4 - Neurosurgery consult, pending - Continue scheduled tylenol and PT/OT as tolerated (2) Subarachnoid hemorrhage Code(s): I60.9 - NONTRAUMATIC SUBARACHNOID HEMORRHAGE, UNSPECIFIED SNOMED Code (s): 829049148 Comment: - Suspect secondary to fall - Repeat CT 08/01 shows stable SAH, no surgical intervention as per neurosurgery - S/P vit K and 1 unit FFP - INR down to 1.14 with goal 1.4 or lower as per neurosurgery - Neurosurgery recommends holding anticoagulation preferably for one month, though 2 weeks would be acceptable - resume as long as patient is stable - Question if she remains a candidate with her age and deconditioning. Also patient has been in NSR (3) Urinary retention Code(s): R33.9 - RETENTION OF URINE, UNSPECIFIED SNOMED Code(s): 097981377 Comment: - PVR 0-210's - Discontinue routine bladder scans, continue PRN - Continue Myrbetriq - Continue bowel regimen as constipation may be contributing (4) Atrial fibrillation Code(s): I48.91 - UNSPECIFIED ATRIAL FIBRILLATION SNOMED Code(s): 16046536 Comment: - Currently in NSR - Continue Metoprolol - Hold coumadin (5) Hypertension Code(s): I10 - ESSENTIAL (PRIMARY) HYPERTENSION SNOMED Code(s): 23189009 Comment: - Mostly normotensive, SBP 100-150's - Continue metoprolol - Continue Lopressor IV PRN SBP >160 in setting of ICH (6) Hx of ischemic left MCA stroke Code(s): Z86.73 - PRSNL HX OF TIA (TIA), AND CEREB INFRC W/O RESID DEFICITS SNOMED Code(s): 476202335 Comment: - Hx: 2012 with residual expressive aphasia and right sided weakness currently at baseline - Continue statin - Holding anticoagulation (7) Osteoporosis Code(s): M81.0 - AGE-RELATED OSTEOPOROSIS W/O CURRENT PATHOLOGICAL FRACTURE SNOMED Code(s): 73568753 (8) DVT prophylaxis Code(s): WRL4461 - SNOMED Code(s): 724606888 Comment: - SCDs only, anticoagulation contraindicated in setting of SAH (9) Full code status Code(s): Z78.9 - OTHER SPECIFIED HEALTH STATUS SNOMED Code(s): 753472866 Status and Disposition: Inpatient. Patient is in assisted living at [place]. May require KAZ at discharge.
[2018-08-05] MEDS: Acetaminophen TAB* 325 MG PO SCH ×4 (04:21→21:38)
--- NOTE | 2018-08-05 08:45 | PN ---
Subjective Date of Service: 08/05/18 Interval History: Patient seen and examined at bedside. Denies fever, chills, shortness of breath , chest discomfort, N/V/D. Ms. Cisneros would like to advance her diet to a regular diet, on admission there was some concern for dysphagia per [facility] staff and she was placed on a pureed diet. Tele: Sinus rhythm, rate 60-80's Family History: Unchanged from Admission Social History: Unchanged from Admission Past Medical History: Unchanged from Admission Objective Active Medications: Acetaminophen (Tylenol Tab*) 650 mg PO Q6H [facility] Atorvastatin Calcium (Lipitor*) 20 mg PO 1700 [facility] Docusate Sodium (Colace Cap*) 100 mg PO BID [facility] Lamotrigine (Lamictal Xr (Nf)) 200 mg PO BID [facility] Levetiracetam (Keppra Xr (Nf)) 750 mg PO DAILY [facility]; Protocol Metoprolol Succinate (Toprol Xl Tab*) 37.5 mg PO DAILY [facility] Metoprolol Tartrate (Lopressor Iv*) 5 mg IV Q6H PRN Reason: BLOOD PRESSURE Mirabegron (Myrbetriq (Nf)) 25 mg PO DAILY [facility] Senna (Senokot Tab*) 1 tab PO BEDTIME PRN Reason: CONSTIPATION Timolol Maleate (Timoptic 0.5% Opth*) 1 drop BOTH EYES BID [facility] Vital Signs - 8 hr 08/05/18 08/05/18 02:42 07:43 Temperature 98.3 F 98.4 F Pulse Rate 57 53 Respiratory 16 16 Rate Blood Pressure 156/79 104/59 (mmHg) O2 Sat by Pulse 96 98 Oximetry Oxygen Devices in Use Now: None Appearance: NAD, sitting up in a chair Ears/Nose/Mouth/Throat: Mucous Membranes Moist Respiratory: Symmetrical Chest Expansion and Respiratory Effort, Clear to Auscultation Cardiovascular: NL Sounds; No Murmurs; No JVD, RRR Abdominal: NL Sounds; No Tenderness; No Distention Extremities: No Edema Skin: No Rash or Ulcers Neurological: Alert and Oriented x 3, NL Muscle Strength and Tone Nutrition: Taking PO's Result Diagrams: 08/01/18 05:40 08/01/18 05:40 Microbiology and Other Data: Microbiology 07/31/18 06:30 Nasal Screen MRSA (PCR) - Final Nasal Mrsa Not Detected Diagnostic Imaging: REPEAT CT BRAIN: IMPRESSION: 1. Stable or slightly smaller volume of subarachnoid hemorrhage involving the left frontal lobe relative to the most recent CT of the brain acquired at 0343 hours. 2. Degenerative disc disease of the cervical spine without acute fracture or dislocation. 3. In the left lobe of the thyroid there is a 1.6 cm hypoattenuating focus with a Hounsfield unit slightly greater than that of a simple cyst. On a nonemergent basis superior characterization of the thyroid can be made with ultrasound. 4. Additional chronic and degenerative changes described in the body the report. 08/04/18 1603 MRI LUMBAR SPINE W/O IMPRESSION: 1. Scoliosis of the lumbar spine with degenerative disc disease at multiple levels. 2. At L3-4, there is a moderate size right paracentral to right posterolateral disc extrusion likely impinging upon the right descending and right exiting nerve root at L3-4. Assess/Plan/Problems-Billing Assessment: This is an 83 year old female with PMHx of atrial fibrillation on Coumadin, aphasia, seizure, Afib, and osteoporosis who presented from [facility], who had a suspected mechanical fall, and was found to have a SAH. - Patient Problems (1) Lumbar radicular pain Code(s): M54.16 - RADICULOPATHY, LUMBAR REGION SNOMED Code(s): 815989799 Comment: - Able to ambulate but continues to have pain, and suspect this has contributed to her weakness and fall - CT of lumbar spine and pelvis - negative for acute finding - MRI of the lumbar spine with L3-4 posterolateral disc extrusion likely impinging upon the right decending and right exiting nerve root at L 3-4 - Neurosurgery consult, pending - Continue scheduled tylenol and PT/OT as tolerated (2) Subarachnoid hemorrhage Code(s): I60.9 - NONTRAUMATIC SUBARACHNOID HEMORRHAGE, UNSPECIFIED SNOMED Code (s): 067725825 Comment: - Suspect secondary to fall - Repeat CT 08/01 shows stable SAH, no surgical intervention as per neurosurgery - S/P vit K and 1 unit FFP - INR down to 1.14 with goal 1.4 or lower as per neurosurgery - Neurosurgery recommends holding anticoagulation preferably for one month, though 2 weeks would be acceptable - resume as long as patient is stable - Question if she remains a candidate with her age and deconditioning. Also patient has been in NSR (3) Urinary retention Code(s): R33.9 - RETENTION OF URINE, UNSPECIFIED SNOMED Code(s): 176611056 Comment: - Resolved - PVR 0-210's - Discontinue routine bladder scans, continue PRN - Continue Myrbetriq - Continue bowel regimen as constipation may be contributing (4) Atrial fibrillation Code(s): I48.91 - UNSPECIFIED ATRIAL FIBRILLATION SNOMED Code(s): 98269567 Comment: - Currently in NSR - Continue Metoprolol - Hold coumadin (5) Hypertension Code(s): I10 - ESSENTIAL (PRIMARY) HYPERTENSION SNOMED Code(s): 09533586 Comment: - Mostly normotensive, SBP 100-150's - Continue metoprolol - Continue Lopressor IV PRN SBP >160 in setting of ICH (6) Hx of ischemic left MCA stroke Code(s): Z86.73 - PRSNL HX OF TIA (TIA), AND CEREB INFRC W/O RESID DEFICITS SNOMED Code(s): 566962538 Comment: - Hx: 2012 with residual expressive aphasia and right sided weakness currently at baseline - Continue statin - Holding anticoagulation (7) Osteoporosis Code(s): M81.0 - AGE-RELATED OSTEOPOROSIS W/O CURRENT PATHOLOGICAL FRACTURE SNOMED Code(s): 72618222 (8) DVT prophylaxis Code(s): HMV2666 - SNOMED Code(s): 460674393 Comment: - SCDs only, anticoagulation contraindicated in setting of SAH (9) Full code status Code(s): Z78.9 - OTHER SPECIFIED HEALTH STATUS SNOMED Code(s): 787446926 Status and Disposition: Inpatient. Patient is in assisted living at [place]. May require KAZ at discharge.
[2018-08-05] MEDS: CMCS:Levetiracetam XR TAB(NF) 750 MG TAB.XR PO SCH (09:04)
[2018-08-05] MEDS: LAMOTRIGINE 200 MG PO SCH ×2 (09:04→21:38)
[2018-08-05] MEDS: Docusate CAP* 100 MG PO SCH ×2 (09:04→21:37)
[2018-08-05] MEDS: Metoprolol Succinate XL TAB* 25 MG PO SCH (09:04)
[2018-08-05] MEDS: Timolol 0.5% OPTH.SOL* BTL BOTH EYES SCH ×2 (09:05→21:38)
[2018-08-05] MEDS: Mirabegron (NF) 25 MG TAB PO SCH (09:06)
[2018-08-05] MEDS: Atorvastatin* 20 MG TAB PO SCH (18:26)
[2018-08-06] MEDS: Acetaminophen TAB* 325 MG PO SCH ×4 (04:23→21:17)
[2018-08-06] MEDS: Docusate CAP* 100 MG PO SCH ×2 (07:52→21:17)
[2018-08-06] MEDS: LAMOTRIGINE 200 MG PO SCH ×2 (07:53→21:19)
[2018-08-06] MEDS: Mirabegron (NF) 25 MG TAB PO SCH (07:54)
[2018-08-06] MEDS: CMCS:Levetiracetam XR TAB(NF) 750 MG TAB.XR PO SCH (07:54)
[2018-08-06] MEDS: Timolol 0.5% OPTH.SOL* BTL BOTH EYES SCH ×2 (07:54→21:19)
[2018-08-06] MEDS: Metoprolol Succinate XL TAB* 25 MG PO SCH (07:55)
--- NOTE | 2018-08-06 09:01 | PN ---
Progress Note - Progress Note Date of Service: 08/06/18 SOAP: Subjective: []Asked to see patient with several week history of progressively severe back and right leg pain. recent fall stiking head likely secondary to right leg weakness. Admitted for observation of head injury. She remains stable from her cranial issue but has persistent back and leg pain. She had an MRI scan showing a significant superolateral disc herniation at L3-4 on the right.I was aked to advise further options for her disc issue Objective: []Expressive aphasia Mild to moderate right hip flexor weakness MRI shows fragment compressing L 3 nerve root Assessment: []She has a very symptomatic disc herniation. I discussed treatment options with her daughter Halle namely pain control with low dose opiates, consideration of a Lumbar Epidural Steroid Injection and the possible role for microdiscectomy should other treatment fail. She would like for her mother to have an LESI by Dr. Pedro which I will arrange Plan: []Arrange LESI by Dr. Pedro
--- NOTE | 2018-08-06 13:18 | PN ---
Subjective Date of Service: 08/06/18 Interval History: patient continues to c/o right hip pain and increased pain with walking. denies chest pain or shortness of breath. Denies abd pain n/v/d. Family History: Unchanged from Admission Social History: Unchanged from Admission Past Medical History: Unchanged from Admission Objective Active Medications: Acetaminophen (Tylenol Tab*) 650 mg PO Q6H [facility] Last Admin: 08/06/18 07:52 Dose: 650 mg Atorvastatin Calcium (Lipitor*) 20 mg PO 1700 [facility] Last Admin: 08/05/18 18:26 Dose: 20 mg Docusate Sodium (Colace Cap*) 100 mg PO BID [facility] Last Admin: 08/06/18 07:52 Dose: 100 mg Lamotrigine (Lamictal Xr (Nf)) 200 mg PO BID [facility] Last Admin: 08/06/18 07:53 Dose: 200 mg Levetiracetam (Keppra Xr (Nf)) 750 mg PO DAILY [facility]; Protocol Last Admin: 08/06/18 07:54 Dose: 750 mg Metoprolol Succinate (Toprol Xl Tab*) 37.5 mg PO DAILY [facility] Last Admin: 08/06/18 07:55 Dose: 37.5 mg Metoprolol Tartrate (Lopressor Iv*) 5 mg IV Q6H PRN PRN Reason: BLOOD PRESSURE Mirabegron (Myrbetriq (Nf)) 25 mg PO DAILY [facility] Last Admin: 08/06/18 07:54 Dose: Not Given Senna (Senokot Tab*) 1 tab PO BEDTIME PRN PRN Reason: CONSTIPATION Timolol Maleate (Timoptic 0.5% Opth*) 1 drop BOTH EYES BID [facility] Last Admin: 08/06/18 07:54 Dose: 1 drop Vital Signs - 8 hr 08/06/18 08/06/18 08/06/18 07:31 08:00 12:05 Temperature 98.1 F 98.0 F Pulse Rate 58 59 Respiratory 16 16 16 Rate Blood Pressure 112/64 112/56 (mmHg) O2 Sat by Pulse 96 97 Oximetry Oxygen Devices in Use Now: None Appearance: appears comfortable sitting in the chair Eyes: No Scleral Icterus Ears/Nose/Mouth/Throat: Clear Oropharnyx, Mucous Membranes Moist Neck: NL Appearance and Movements; NL JVP, Trachea Midline Respiratory: Symmetrical Chest Expansion and Respiratory Effort, Clear to Auscultation Cardiovascular: NL Sounds; No Murmurs; No JVD, No Edema Abdominal: NL Sounds; No Tenderness; No Distention Extremities: No Edema, No Clubbing, Cyanosis Skin: No Rash or Ulcers Neurological: Alert and Oriented x 3 Result Diagrams: 08/01/18 05:40 08/01/18 05:40 Microbiology and Other Data: Microbiology 07/31/18 06:30 Nasal Screen MRSA (PCR) - Final Nasal Mrsa Not Detected Diagnostic Imaging: REPEAT CT BRAIN: IMPRESSION: 1. Stable or slightly smaller volume of subarachnoid hemorrhage involving the left frontal lobe relative to the most recent CT of the brain acquired at 0343 hours. 2. Degenerative disc disease of the cervical spine without acute fracture or dislocation. 3. In the left lobe of the thyroid there is a 1.6 cm hypoattenuating focus with a Hounsfield unit slightly greater than that of a simple cyst. On a nonemergent basis superior characterization of the thyroid can be made with ultrasound. 4. Additional chronic and degenerative changes described in the body the report. 08/04/18 0429 MRI LUMBAR SPINE W/O IMPRESSION: 1. Scoliosis of the lumbar spine with degenerative disc disease at multiple levels. 2. At L3-4, there is a moderate size right paracentral to right posterolateral disc extrusion likely impinging upon the right descending and right exiting nerve root at L3-4. Assess/Plan/Problems-Billing Assessment: This is an 83 year old female with PMHx of atrial fibrillation on Coumadin, aphasia, seizure, Afib, and osteoporosis who presented from [facility], who had a suspected mechanical fall, and was found to have a SAH. - Patient Problems (1) Lumbar radicular pain Current Visit: Yes Status: Acute Code(s): M54.16 - RADICULOPATHY, LUMBAR REGION SNOMED Code(s): 231604636 Comment: - Able to ambulate but continues to have pain, and suspect this has contributed to her weakness and fall - CT of lumbar spine and pelvis - negative for acute finding - MRI of the lumbar spine with L3-4 posterolateral disc extrusion likely impinging upon the right decending and right exiting nerve root at L 3-4 - Neurosurgery consulted- recommending LESI -with Dr. Pedro - Continue scheduled tylenol and PT/OT as tolerated (2) Hypertension Current Visit: Yes Status: Chronic Priority: Medium Code(s): I10 - ESSENTIAL (PRIMARY) HYPERTENSION SNOMED Code(s): 54058288 Comment: - Mostly normotensive, SBP 112 - Continue metoprolol - Continue Lopressor IV PRN SBP >160 in setting of ICH (3) Subarachnoid hemorrhage Current Visit: Yes Status: Acute Code(s): I60.9 - NONTRAUMATIC SUBARACHNOID HEMORRHAGE, UNSPECIFIED SNOMED Code(s): 316228122 Comment: - Suspect secondary to fall - Repeat CT 08/01 shows stable SAH, no surgical intervention as per neurosurgery - S/P vit K and 1 unit FFP - INR down to 1.14 with goal 1.4 or lower as per neurosurgery - Neurosurgery recommends holding anticoagulation preferably for one month, though 2 weeks would be acceptable - resume as long as patient is stable - Question if she remains a candidate with her age and deconditioning. Also patient has been in NSR (4) Urinary retention Current Visit: Yes Status: Acute Code(s): R33.9 - RETENTION OF URINE, UNSPECIFIED SNOMED Code(s): 909214251 Comment: - Resolved - bladder scans PRN - Continue Myrbetriq - Continue bowel regimen as constipation may be contributing (5) Atrial fibrillation Current Visit: No Status: Chronic Priority: Medium Code(s): I48.91 - UNSPECIFIED ATRIAL FIBRILLATION SNOMED Code(s): 45719010 Comment: - Currently in NSR - Continue Metoprolol - Hold coumadin (6) Hx of ischemic left MCA stroke Current Visit: No Status: Chronic Priority: High Code(s): Z86.73 - PRSNL HX OF TIA (TIA), AND CEREB INFRC W/O RESID DEFICITS SNOMED Code(s): 398119986 Comment: - Hx: 2012 with residual expressive aphasia and right sided weakness currently at baseline - Continue statin - Holding anticoagulation (7) DVT prophylaxis Current Visit: Yes Status: Acute Priority: High Code(s): [id number] - SNOMED Code(s): 158249725 Comment: - SCDs only, anticoagulation contraindicated in setting of SAH (8) Full code status Current Visit: Yes Status: Acute Priority: High Code(s): Z78.9 - OTHER SPECIFIED HEALTH STATUS SNOMED Code(s): 656368131 Status and Disposition: Inpatient. Patient is in assisted living at [place]. May require KAZ at discharge.
[2018-08-06] MEDS: Atorvastatin* 20 MG TAB PO SCH (18:03)
[2018-08-06] MEDS: Atorvastatin* 10 MG TAB PO SCH (18:03)
[2018-08-07] MEDS: Acetaminophen TAB* 325 MG PO SCH ×4 (03:13→20:09)
[2018-08-07] MEDS: CMCS:Levetiracetam XR TAB(NF) 750 MG TAB.XR PO SCH (08:01)
[2018-08-07] MEDS: Timolol 0.5% OPTH.SOL* BTL BOTH EYES SCH ×2 (08:01→20:10)
[2018-08-07] MEDS: LAMOTRIGINE 200 MG PO SCH ×2 (08:01→20:10)
[2018-08-07] MEDS: Metoprolol Succinate XL TAB* 25 MG PO SCH (08:02)
[2018-08-07] MEDS: Docusate CAP* 100 MG PO SCH ×2 (08:02→20:10)
[2018-08-07] MEDS: Mirabegron (NF) 25 MG TAB PO SCH (08:38)
[2018-08-07] MEDS: Atorvastatin* 10 MG TAB PO SCH (15:25)
[2018-08-07] MEDS ORDERED: methylPREDNISolone ACETATE 80* 80 MG/ML 1 ML VIAL ONE (15:58)
[2018-08-07] MEDS ORDERED: Lidocaine 1% INJ* 10 MG/ML 30 ML SDV ONE (15:58)
--- NOTE | 2018-08-07 16:44 | PN ---
Subjective Date of Service: 08/07/18 Interval History: continues to c/o right hip and back pain. Denies chest pain or shortness of breath. Denies abd pain n/v/d. Family History: Unchanged from Admission Social History: Unchanged from Admission Past Medical History: Unchanged from Admission Objective Active Medications: Acetaminophen (Tylenol Tab*) 650 mg PO Q6H [facility] Last Admin: 08/07/18 15:25 Dose: 650 mg Atorvastatin Calcium (Lipitor*) 20 mg PO 1700 [facility] Last Admin: 08/07/18 15:25 Dose: 20 mg Docusate Sodium (Colace Cap*) 100 mg PO BID [facility] Last Admin: 08/07/18 08:02 Dose: 100 mg Lamotrigine (Lamictal Xr (Nf)) 200 mg PO BID [facility] Last Admin: 08/07/18 08:01 Dose: 200 mg Levetiracetam (Keppra Xr (Nf)) 750 mg PO DAILY [facility]; Protocol Last Admin: 08/07/18 08:01 Dose: 750 mg Metoprolol Succinate (Toprol Xl Tab*) 37.5 mg PO DAILY [facility] Last Admin: 08/07/18 08:02 Dose: 37.5 mg Metoprolol Tartrate (Lopressor Iv*) 5 mg IV Q6H PRN PRN Reason: BLOOD PRESSURE Mirabegron (Myrbetriq (Nf)) 25 mg PO DAILY [facility] Last Admin: 08/07/18 08:38 Dose: Not Given Senna (Senokot Tab*) 1 tab PO BEDTIME PRN PRN Reason: CONSTIPATION Timolol Maleate (Timoptic 0.5% Opth*) 1 drop BOTH EYES BID [facility] Last Admin: 08/07/18 08:01 Dose: 1 drop Vital Signs - 8 hr 08/07/18 08/07/18 11:01 15:03 Temperature 97.9 F 98.4 F Pulse Rate 58 63 Respiratory 16 16 Rate Blood Pressure 104/58 100/59 (mmHg) O2 Sat by Pulse 99 97 Oximetry Oxygen Devices in Use Now: None Appearance: appears comfortable resting in bed Eyes: No Scleral Icterus Ears/Nose/Mouth/Throat: Clear Oropharnyx, Mucous Membranes Moist Neck: NL Appearance and Movements; NL JVP, Trachea Midline Respiratory: Symmetrical Chest Expansion and Respiratory Effort, Clear to Auscultation Cardiovascular: NL Sounds; No Murmurs; No JVD, No Edema Abdominal: NL Sounds; No Tenderness; No Distention Extremities: No Edema, No Clubbing, Cyanosis Skin: No Rash or Ulcers Neurological: Alert and Oriented x 3 Nutrition: Taking PO's Result Diagrams: 08/01/18 05:40 08/01/18 05:40 Microbiology and Other Data: Microbiology 07/31/18 06:30 Nasal Screen MRSA (PCR) - Final Nasal Mrsa Not Detected Diagnostic Imaging: REPEAT CT BRAIN: IMPRESSION: 1. Stable or slightly smaller volume of subarachnoid hemorrhage involving the left frontal lobe relative to the most recent CT of the brain acquired at 0343 hours. 2. Degenerative disc disease of the cervical spine without acute fracture or dislocation. 3. In the left lobe of the thyroid there is a 1.6 cm hypoattenuating focus with a Hounsfield unit slightly greater than that of a simple cyst. On a nonemergent basis superior characterization of the thyroid can be made with ultrasound. 4. Additional chronic and degenerative changes described in the body the report. 08/04/18 3208 MRI LUMBAR SPINE W/O IMPRESSION: 1. Scoliosis of the lumbar spine with degenerative disc disease at multiple levels. 2. At L3-4, there is a moderate size right paracentral to right posterolateral disc extrusion likely impinging upon the right descending and right exiting nerve root at L3-4. Assess/Plan/Problems-Billing Assessment: This is an 83 year old female with PMHx of atrial fibrillation on Coumadin, aphasia, seizure, Afib, and osteoporosis who presented from [facility], who had a suspected mechanical fall, and was found to have a SAH. - Patient Problems (1) Lumbar radicular pain Current Visit: Yes Status: Acute Code(s): M54.16 - RADICULOPATHY, LUMBAR REGION SNOMED Code(s): 056385586 Comment: - Able to ambulate but continues to have pain, and suspect this has contributed to her weakness and fall - CT of lumbar spine and pelvis - negative for acute finding - MRI of the lumbar spine with L3-4 posterolateral disc extrusion likely impinging upon the right decending and right exiting nerve root at L 3-4 - Neurosurgery consulted- recommending LESI -with Dr. Pedro - procedure scheduled for this afternoon - Continue scheduled tylenol and PT/OT as tolerated (2) Hypertension Current Visit: Yes Status: Chronic Priority: Medium Code(s): I10 - ESSENTIAL (PRIMARY) HYPERTENSION SNOMED Code(s): 19658140 Comment: - Mostly normotensive, SBP 100 - Continue metoprolol will decrease dose of metoprolol back to 25 mg daily starting tomorrow (3) Subarachnoid hemorrhage Current Visit: Yes Status: Acute Code(s): I60.9 - NONTRAUMATIC SUBARACHNOID HEMORRHAGE, UNSPECIFIED SNOMED Code(s): 876224668 Comment: - Suspect secondary to fall - Repeat CT 08/01 shows stable SAH, no surgical intervention as per neurosurgery - S/P vit K and 1 unit FFP - INR down to 1.14 with goal 1.4 or lower as per neurosurgery - Neurosurgery recommends holding anticoagulation preferably for one month, though 2 weeks would be acceptable - resume as long as patient is stable - Question if she remains a candidate with her age and deconditioning. Also patient has been in NSR (4) Urinary retention Current Visit: Yes Status: Acute Code(s): R33.9 - RETENTION OF URINE, UNSPECIFIED SNOMED Code(s): 420572857 Comment: - Resolved - bladder scans PRN - Continue Myrbetriq - Continue bowel regimen as constipation may be contributing (5) Atrial fibrillation Current Visit: No Status: Chronic Priority: Medium Code(s): I48.91 - UNSPECIFIED ATRIAL FIBRILLATION SNOMED Code(s): 53860665 Comment: - Currently in NSR - Continue Metoprolol - Hold coumadin (6) Hx of ischemic left MCA stroke Current Visit: No Status: Chronic Priority: High Code(s): Z86.73 - PRSNL HX OF TIA (TIA), AND CEREB INFRC W/O RESID DEFICITS SNOMED Code(s): 955984822 Comment: - Hx: 2012 with residual expressive aphasia and right sided weakness currently at baseline - Continue statin - Holding anticoagulation (7) DVT prophylaxis Current Visit: Yes Status: Acute Priority: High Code(s): PZU2803 - SNOMED Code(s): 224348937 Comment: - SCDs only, anticoagulation contraindicated in setting of SAH (8) Full code status Current Visit: Yes Status: Acute Priority: High Code(s): Z78.9 - OTHER SPECIFIED HEALTH STATUS SNOMED Code(s): 046724119 Status and Disposition: Inpatient. Patient is in assisted living at [place]. May require KAZ at discharge.
--- NOTE | 2018-08-07 20:32 | PM ---
[facility] NOTE: DATE OF VISIT: 08/07/18 CHIEF COMPLAINT: Right leg pain. HISTORY: The patient is an 83-year-old female, who is an inpatient at [facility] in room 431. The patient has a history of lumbar radiculopathy. She had other medical issues related to subarachnoid hemorrhage due to Coumadin use; however, she has now been off anticoagulation, doing better, and Dr. Davis consulted on the patient yesterday and thought she would benefit from an L3-4 epidural steroid injection under fluoroscopic guidance. She is having difficulties walking without the assistance of a walker due to the disk herniation on the MRI of 08/04/18. I did review the patient's medical records, also reviewed her laboratory data. There are no contraindications to proceeding. She is on no anticoagulants, so an epidural steroid injection under fluoroscopic guidance is a reasonable approach to avoid surgery. I did review her MRI dated 08/04/18. It shows at L3-4, a moderate-sized right paracentral to right posterolateral disk extrusion likely impinging upon the right descending and right exiting nerve roots at L3-4. ASSESSMENT AND PLAN: Lumbar radiculopathy due to an L3-4 disk herniation. I talked to the patient today about treatment options including a lumbar epidural steroid injection under fluoroscopic guidance. Risks, benefits, and alternatives were discussed and informed consent was obtained. PROCEDURE NOTE: The patient was brought over to the fluoroscopy suite and assisted to the prone position on the fluoroscopy table. The low back was prepped and draped in the usual sterile fashion. The time out procedure was performed and documented. Using fluoroscopy, I identified the L3-4 interspace, anesthetized the skin and subcutaneous tissue over the area with 3 mL of preservative free 1% lidocaine. Using an 18 gauge 3-1/2 inch Tuohy needle, I directed under fluoroscopic guidance to the L3-4 interspace and identified the epidural space using the loss of resistance to air technique. There was no CSF, no heme, no paresthesias noted. There was negative aspiration. 3 mL preservative free normal saline with 80 mg of Depo-Medrol was injected after frequent negative aspirations. The patient tolerated the procedure well, was brought [facility] to the [facility] in stable condition, and discharged with instructions to follow up as scheduled. Fluoroscopic images were saved. We will see how she responds to therapy, and can follow up with us as an outpatient if needed. [id number]/CPS #: [id number]
[2018-08-08] MEDS: Acetaminophen TAB* 325 MG PO SCH ×4 (05:35→17:01)
[2018-08-08] MEDS: Timolol 0.5% OPTH.SOL* BTL BOTH EYES SCH ×2 (07:59→21:25)
[2018-08-08] MEDS: Metoprolol Succinate XL TAB* 25 MG PO SCH (07:59)
[2018-08-08] MEDS: Docusate CAP* 100 MG PO SCH ×2 (07:59→21:25)
[2018-08-08] MEDS: LAMOTRIGINE 200 MG PO SCH ×2 (07:59→21:25)
[2018-08-08] MEDS: CMCS:Levetiracetam XR TAB(NF) 750 MG TAB.XR PO SCH (07:59)
[2018-08-08] MEDS: Mirabegron (NF) 25 MG TAB PO SCH (08:00)
[2018-08-08] MEDS: Atorvastatin* 10 MG TAB PO SCH (17:01)
--- NOTE | 2018-08-08 19:32 | PN ---
Subjective Date of Service: 08/08/18 Interval History: states that lower back pain is improving, states pain to right hip has improved. c/o left knee pain today. Denies chest pain or shortness of breath. Denies abd pain n/v/d. Family History: Unchanged from Admission Social History: Unchanged from Admission Past Medical History: Unchanged from Admission Objective Active Medications: Acetaminophen (Tylenol Tab*) 650 mg PO Q6HR [facility] Last Admin: 08/08/18 17:01 Dose: 650 mg Atorvastatin Calcium (Lipitor*) 20 mg PO 1700 [facility] Last Admin: 08/08/18 17:01 Dose: 20 mg Docusate Sodium (Colace Cap*) 100 mg PO BID [facility] Last Admin: 08/08/18 07:59 Dose: 100 mg Lamotrigine (Lamictal Xr (Nf)) 200 mg PO BID [facility] Last Admin: 08/08/18 07:59 Dose: 200 mg Levetiracetam (Keppra Xr (Nf)) 750 mg PO DAILY [facility]; Protocol Last Admin: 08/08/18 07:59 Dose: 750 mg Metoprolol Succinate (Toprol Xl Tab*) 25 mg PO DAILY [facility] Last Admin: 08/08/18 07:59 Dose: 25 mg Mirabegron (Myrbetriq (Nf)) 25 mg PO DAILY [facility] Last Admin: 08/08/18 08:00 Dose: Not Given Senna (Senokot Tab*) 1 tab PO BEDTIME PRN PRN Reason: CONSTIPATION Timolol Maleate (Timoptic 0.5% Opth*) 1 drop BOTH EYES BID [facility] Last Admin: 08/08/18 07:59 Dose: 1 drop Vital Signs - 8 hr 08/08/18 08/08/18 15:11 19:22 Temperature 97.9 F 97.4 F Pulse Rate 59 65 Respiratory 16 16 Rate Blood Pressure 122/67 115/61 (mmHg) O2 Sat by Pulse 97 96 Oximetry Oxygen Devices in Use Now: None Appearance: appears comfortable resting in bed , no acute distress Eyes: No Scleral Icterus Ears/Nose/Mouth/Throat: Clear Oropharnyx, Mucous Membranes Moist Neck: NL Appearance and Movements; NL JVP, Trachea Midline Respiratory: Symmetrical Chest Expansion and Respiratory Effort, Clear to Auscultation Cardiovascular: NL Sounds; No Murmurs; No JVD, No Edema Abdominal: NL Sounds; No Tenderness; No Distention Extremities: No Edema, No Clubbing, Cyanosis Skin: No Rash or Ulcers Neurological: Alert and Oriented x 3 Nutrition: Taking PO's Result Diagrams: 08/01/18 05:40 08/01/18 05:40 Microbiology and Other Data: Microbiology 07/31/18 06:30 Nasal Screen MRSA (PCR) - Final Nasal Mrsa Not Detected Diagnostic Imaging: REPEAT CT BRAIN: IMPRESSION: 1. Stable or slightly smaller volume of subarachnoid hemorrhage involving the left frontal lobe relative to the most recent CT of the brain acquired at 0343 hours. 2. Degenerative disc disease of the cervical spine without acute fracture or dislocation. 3. In the left lobe of the thyroid there is a 1.6 cm hypoattenuating focus with a Hounsfield unit slightly greater than that of a simple cyst. On a nonemergent basis superior characterization of the thyroid can be made with ultrasound. 4. Additional chronic and degenerative changes described in the body the report. 08/04/18 3641 MRI LUMBAR SPINE W/O IMPRESSION: 1. Scoliosis of the lumbar spine with degenerative disc disease at multiple levels. 2. At L3-4, there is a moderate size right paracentral to right posterolateral disc extrusion likely impinging upon the right descending and right exiting nerve root at L3-4. Assess/Plan/Problems-Billing Assessment: This is an 83 year old female with PMHx of atrial fibrillation on Coumadin, aphasia, seizure, Afib, and osteoporosis who presented from [facility], who had a suspected mechanical fall, and was found to have a SAH. - Patient Problems (1) Lumbar radicular pain Current Visit: Yes Status: Acute Code(s): M54.16 - RADICULOPATHY, LUMBAR REGION SNOMED Code(s): 044452022 Comment: - Able to ambulate but continues to have pain, and suspect this has contributed to her weakness and fall - CT of lumbar spine and pelvis - negative for acute finding - MRI of the lumbar spine with L3-4 posterolateral disc extrusion likely impinging upon the right decending and right exiting nerve root at L 3-4 - Neurosurgery consulted- recommending LESI -with Dr. Pedro - procedure completed yesterday - reports improvment of pain symptoms - evaluated by [facility] - deemed her unsafe to return to assisted living today - Continue scheduled tylenol and PT/OT as tolerated (2) Hypertension Current Visit: Yes Status: Chronic Priority: Medium Code(s): I10 - ESSENTIAL (PRIMARY) HYPERTENSION SNOMED Code(s): 75440524 Comment: - Mostly normotensive, SBP 112-125 - Continue metoprolol at 25 mg (3) Subarachnoid hemorrhage Current Visit: Yes Status: Acute Code(s): I60.9 - NONTRAUMATIC SUBARACHNOID HEMORRHAGE, UNSPECIFIED SNOMED Code(s): 499891462 Comment: - Suspect secondary to fall - Repeat CT 08/01 shows stable SAH, no surgical intervention as per neurosurgery - S/P vit K and 1 unit FFP - INR down to 1.14 with goal 1.4 or lower as per neurosurgery - Neurosurgery recommends holding anticoagulation preferably for one month, though 2 weeks would be acceptable - resume as long as patient is stable - Question if she remains a candidate with her age and deconditioning. Also patient has been in NSR (4) Urinary retention Current Visit: Yes Status: Acute Code(s): R33.9 - RETENTION OF URINE, UNSPECIFIED SNOMED Code(s): 715065319 Comment: - Resolved - bladder scans PRN - Continue Myrbetriq - Continue bowel regimen as constipation may be contributing (5) Atrial fibrillation Current Visit: No Status: Chronic Priority: Medium Code(s): I48.91 - UNSPECIFIED ATRIAL FIBRILLATION SNOMED Code(s): 86017259 Comment: - Currently in NSR - Continue Metoprolol - Hold coumadin (6) Hx of ischemic left MCA stroke Current Visit: No Status: Chronic Priority: High Code(s): Z86.73 - PRSNL HX OF TIA (TIA), AND CEREB INFRC W/O RESID DEFICITS SNOMED Code(s): 958027820 Comment: - Hx: 2012 with residual expressive aphasia and right sided weakness currently at baseline - Continue statin - Holding anticoagulation (7) DVT prophylaxis Current Visit: Yes Status: Acute Priority: High Code(s): [id number] - SNOMED Code(s): 861476067 Comment: - SCDs only, anticoagulation contraindicated in setting of SAH (8) Full code status Current Visit: Yes Status: Acute Priority: High Code(s): Z78.9 - OTHER SPECIFIED HEALTH STATUS SNOMED Code(s): 334909405 Status and Disposition: Inpatient. Patient is in assisted living at [place]. May require KAZ at discharge.
[2018-08-09] MEDS: Acetaminophen TAB* 325 MG PO SCH ×5 (03:33→21:42)
[2018-08-09] MEDS: LAMOTRIGINE 200 MG PO SCH ×2 (08:28→21:43)
[2018-08-09] MEDS: CMCS:Levetiracetam XR TAB(NF) 750 MG TAB.XR PO SCH (08:29)
[2018-08-09] MEDS: Timolol 0.5% OPTH.SOL* BTL BOTH EYES SCH ×2 (08:29→21:43)
[2018-08-09] MEDS: Mirabegron (NF) 25 MG TAB PO SCH (08:29)
[2018-08-09] MEDS: Docusate CAP* 100 MG PO SCH ×2 (08:29→21:43)
[2018-08-09] MEDS: Metoprolol Succinate XL TAB* 25 MG PO SCH ×2 (09:44→11:39)
--- NOTE | 2018-08-09 15:15 | PN ---
Subjective Date of Service: 08/09/18 Interval History: Continues to report improvement in back and right hip pain, reports she mainly notices the pain in her right with movement. c/o left knee pain , states that she has had it for a long time. denies any recent injury to the the right knee. Denies chest pain or shortness of breath. denies abd pain n/v/d. Family History: Unchanged from Admission Social History: Unchanged from Admission Past Medical History: Unchanged from Admission Objective Active Medications: Acetaminophen (Tylenol Tab*) 650 mg PO Q6H [facility] Last Admin: 08/09/18 11:41 Dose: 650 mg Atorvastatin Calcium (Lipitor*) 20 mg PO 1700 [facility] Last Admin: 08/08/18 17:01 Dose: 20 mg Docusate Sodium (Colace Cap*) 100 mg PO BID [facility] Last Admin: 08/09/18 08:29 Dose: 100 mg Lamotrigine (Lamictal Xr (Nf)) 200 mg PO BID [facility] Last Admin: 08/09/18 08:28 Dose: 200 mg Levetiracetam (Keppra Xr (Nf)) 750 mg PO DAILY [facility]; Protocol Last Admin: 08/09/18 08:29 Dose: 750 mg Metoprolol Succinate (Toprol Xl Tab*) 12.5 mg PO DAILY [facility] Last Admin: 08/09/18 11:39 Dose: Not Given Mirabegron (Myrbetriq (Nf)) 25 mg PO DAILY [facility] Last Admin: 08/09/18 08:29 Dose: Not Given Senna (Senokot Tab*) 1 tab PO BEDTIME PRN PRN Reason: CONSTIPATION Timolol Maleate (Timoptic 0.5% Opth*) 1 drop BOTH EYES BID [facility] Last Admin: 08/09/18 08:29 Dose: 1 drop Vital Signs - 8 hr 08/09/18 08/09/18 08/09/18 07:22 08:00 11:34 Temperature 98.0 F 98.1 F Pulse Rate 52 57 Respiratory 16 16 20 Rate Blood Pressure 116/60 135/68 (mmHg) O2 Sat by Pulse 98 99 Oximetry Oxygen Devices in Use Now: None Appearance: alert sitting in the chair no acute distress Eyes: No Scleral Icterus Ears/Nose/Mouth/Throat: Clear Oropharnyx, Mucous Membranes Moist Neck: NL Appearance and Movements; NL JVP, Trachea Midline Respiratory: Symmetrical Chest Expansion and Respiratory Effort, Clear to Auscultation Cardiovascular: NL Sounds; No Murmurs; No JVD, No Edema Abdominal: NL Sounds; No Tenderness; No Distention Extremities: No Edema, No Clubbing, Cyanosis Skin: No Rash or Ulcers Neurological: Alert and Oriented x 3 Nutrition: Taking PO's Result Diagrams: 08/01/18 05:40 08/01/18 05:40 Microbiology and Other Data: Microbiology 07/31/18 06:30 Nasal Screen MRSA (PCR) - Final Nasal Mrsa Not Detected Diagnostic Imaging: REPEAT CT BRAIN: IMPRESSION: 1. Stable or slightly smaller volume of subarachnoid hemorrhage involving the left frontal lobe relative to the most recent CT of the brain acquired at 0343 hours. 2. Degenerative disc disease of the cervical spine without acute fracture or dislocation. 3. In the left lobe of the thyroid there is a 1.6 cm hypoattenuating focus with a Hounsfield unit slightly greater than that of a simple cyst. On a nonemergent basis superior characterization of the thyroid can be made with ultrasound. 4. Additional chronic and degenerative changes described in the body the report. 08/04/18 6218 MRI LUMBAR SPINE W/O IMPRESSION: 1. Scoliosis of the lumbar spine with degenerative disc disease at multiple levels. 2. At L3-4, there is a moderate size right paracentral to right posterolateral disc extrusion likely impinging upon the right descending and right exiting nerve root at L3-4. Assess/Plan/Problems-Billing Assessment: This is an 83 year old female with PMHx of atrial fibrillation on Coumadin, aphasia, seizure, Afib, and osteoporosis who presented from [facility] living, who had a suspected mechanical fall, and was found to have a SAH. - Patient Problems (1) Lumbar radicular pain Current Visit: Yes Status: Acute Code(s): M54.16 - RADICULOPATHY, LUMBAR REGION SNOMED Code(s): 879235265 Comment: - Able to ambulate but continues to have some pain, suspect this has contributed to her weakness and fall - CT of lumbar spine and pelvis - negative for acute finding - MRI of the lumbar spine with L3-4 posterolateral disc extrusion likely impinging upon the right decending and right exiting nerve root at L 3-4 - Neurosurgery consulted- recommended LESI -with Dr. Pedro - procedure completed - reports improvment of pain symptoms - evaluated by [facility] - deemed her unsafe to return to assisted living will re evaluate on saturday - Continue scheduled tylenol and PT/OT as tolerated (2) Hypertension Current Visit: Yes Status: Chronic Priority: Medium Code(s): I10 - ESSENTIAL (PRIMARY) HYPERTENSION SNOMED Code(s): 55374344 Comment: - normotensive, bradycardia reported overnight 40's to 50's - decrease metoprolol at 12.5 mg (3) Subarachnoid hemorrhage Current Visit: Yes Status: Acute Code(s): I60.9 - NONTRAUMATIC SUBARACHNOID HEMORRHAGE, UNSPECIFIED SNOMED Code(s): 950646814 Comment: - Suspect secondary to fall - Repeat CT 08/01 shows stable SAH, no surgical intervention as per neurosurgery - S/P vit K and 1 unit FFP - INR down to 1.14 with goal 1.4 or lower as per neurosurgery - Neurosurgery recommends holding anticoagulation preferably for one month, though 2 weeks would be acceptable - resume as long as patient is stable - Question if she remains a candidate with her age and deconditioning. Also patient has been in NSR (4) Urinary retention Current Visit: Yes Status: Acute Code(s): R33.9 - RETENTION OF URINE, UNSPECIFIED SNOMED Code(s): 888398383 Comment: - Resolved - bladder scans PRN - Continue Myrbetriq - Continue bowel regimen as constipation may be contributing (5) Atrial fibrillation Current Visit: No Status: Chronic Priority: Medium Code(s): I48.91 - UNSPECIFIED ATRIAL FIBRILLATION SNOMED Code(s): 68542930 Comment: - Currently in NSR - Continue Metoprolol - Hold coumadin (6) Hx of ischemic left MCA stroke Current Visit: No Status: Chronic Priority: High Code(s): Z86.73 - PRSNL HX OF TIA (TIA), AND CEREB INFRC W/O RESID DEFICITS SNOMED Code(s): 562995905 Comment: - Hx: 2013 with residual expressive aphasia and right sided weakness currently at baseline - Continue statin - Holding anticoagulation (7) DVT prophylaxis Current Visit: Yes Status: Acute Priority: High Code(s): IRM5935 - SNOMED Code(s): 348175984 Comment: - SCDs only, anticoagulation contraindicated in setting of SAH (8) Full code status Current Visit: Yes Status: Acute Priority: High Code(s): Z78.9 - OTHER SPECIFIED HEALTH STATUS SNOMED Code(s): 726157021 Status and Disposition: Inpatient. Patient is in assisted living at [place]. May require KAZ at discharge.
[2018-08-09] MEDS: Atorvastatin* 10 MG TAB PO SCH (16:30)
[2018-08-10] MEDS: Acetaminophen TAB* 325 MG PO SCH ×4 (03:34→21:50)
[2018-08-10] MEDS: Metoprolol Succinate XL TAB* 25 MG PO SCH (07:57)
[2018-08-10] MEDS: Mirabegron (NF) 25 MG TAB PO SCH (08:01)
[2018-08-10] MEDS: Timolol 0.5% OPTH.SOL* BTL BOTH EYES SCH ×2 (08:50→21:49)
[2018-08-10] MEDS: Docusate CAP* 100 MG PO SCH ×2 (08:50→21:50)
[2018-08-10] MEDS: LAMOTRIGINE 200 MG PO SCH ×2 (08:50→21:50)
[2018-08-10] MEDS: CMCS:Levetiracetam XR TAB(NF) 750 MG TAB.XR PO SCH (08:50)
[2018-08-10] MEDS: Atorvastatin* 10 MG TAB PO SCH (15:36)
--- NOTE | 2018-08-10 16:29 | PN ---
Subjective Date of Service: 08/10/18 Interval History: continue to report pain has improved . continues to c/o left knee pain states that pain improves with walking, denies chest pain or shortness of breath. denies abd pain n/v/d. Family History: Unchanged from Admission Social History: Unchanged from Admission Past Medical History: Unchanged from Admission Objective Active Medications: Acetaminophen (Tylenol Tab*) 650 mg PO Q6H FOR[facility], [facility] Last Admin: 08/10/18 15:35 Dose: 650 mg Atorvastatin Calcium (Lipitor*) 20 mg PO 1700 FOR[facility], [facility] Last Admin: 08/10/18 15:36 Dose: 20 mg Docusate Sodium (Colace Cap*) 100 mg PO BID FOR[facility], [facility]1983 Last Admin: 08/10/18 08:50 Dose: 100 mg Lamotrigine (Lamictal Xr (Nf)) 200 mg PO BID FOR[facility], [facility] Last Admin: 08/10/18 08:50 Dose: 200 mg Levetiracetam (Keppra Xr (Nf)) 750 mg PO DAILY FOR[facility]LY [facility], [facility]; Protocol Last Admin: 08/10/18 08:50 Dose: 750 mg Metoprolol Succinate (Toprol Xl Tab*) 12.5 mg PO DAILY FOR[facility], [facility] Last Admin: 08/10/18 07:57 Dose: Not Given Mirabegron (Myrbetriq (Nf)) 25 mg PO DAILY FOR[facility], [facility] Last Admin: 08/10/18 08:01 Dose: Not Given Senna (Senokot Tab*) 1 tab PO BEDTIME PRN PRN Reason: CONSTIPATION Timolol Maleate (Timoptic 0.5% Opth*) 1 drop BOTH EYES BID FOR[facility], [facility] Last Admin: 08/10/18 08:50 Dose: 1 drop Vital Signs - 8 hr 08/10/18 08/10/18 11:40 15:44 Temperature 97.8 F 97.5 F Pulse Rate 61 67 Respiratory 16 16 Rate Blood Pressure 148/70 129/65 (mmHg) O2 Sat by Pulse 98 97 Oximetry Oxygen Devices in Use Now: None Appearance: appears comfotable sitting in chair Eyes: No Scleral Icterus Ears/Nose/Mouth/Throat: Clear Oropharnyx, Mucous Membranes Moist Neck: NL Appearance and Movements; NL JVP, Trachea Midline Respiratory: Symmetrical Chest Expansion and Respiratory Effort, Clear to Auscultation Cardiovascular: NL Sounds; No Murmurs; No JVD, No Edema Abdominal: NL Sounds; No Tenderness; No Distention Extremities: No Edema, No Clubbing, Cyanosis Skin: No Rash or Ulcers Neurological: Alert and Oriented x 3 Nutrition: Taking PO's Result Diagrams: 08/01/18 05:40 08/01/18 05:40 Microbiology and Other Data: Microbiology 07/31/18 06:30 Nasal Screen MRSA (PCR) - Final Nasal Mrsa Not Detected Diagnostic Imaging: REPEAT CT BRAIN: IMPRESSION: 1. Stable or slightly smaller volume of subarachnoid hemorrhage involving the left frontal lobe relative to the most recent CT of the brain acquired at 0343 hours. 2. Degenerative disc disease of the cervical spine without acute fracture or dislocation. 3. In the left lobe of the thyroid there is a 1.6 cm hypoattenuating focus with a Hounsfield unit slightly greater than that of a simple cyst. On a nonemergent basis superior characterization of the thyroid can be made with ultrasound. 4. Additional chronic and degenerative changes described in the body the report. 08/04/18 7473 MRI LUMBAR SPINE W/O IMPRESSION: 1. Scoliosis of the lumbar spine with degenerative disc disease at multiple levels. 2. At L3-4, there is a moderate size right paracentral to right posterolateral disc extrusion likely impinging upon the right descending and right exiting nerve root at L3-4. Assess/Plan/Problems-Billing Assessment: This is an 83 year old female with PMHx of atrial fibrillation on Coumadin, aphasia, seizure, Afib, and osteoporosis who presented from [facility], who had a suspected mechanical fall, and was found to have a SAH. - Patient Problems (1) Lumbar radicular pain Current Visit: Yes Status: Acute Code(s): M54.16 - RADICULOPATHY, LUMBAR REGION SNOMED Code(s): 658753769 Comment: - Able to ambulate but continues to have some pain, suspect this has contributed to her weakness and fall - CT of lumbar spine and pelvis - negative for acute finding - MRI of the lumbar spine with L3-4 posterolateral disc extrusion likely impinging upon the right decending and right exiting nerve root at L 3-4 - Neurosurgery consulted- recommended LESI -with Dr. Pedro - procedure completed - reports improvment of pain symptoms - evaluated by [facility] on saturday - deemed her unsafe to return to assisted living will re evaluate on saturday - Continue scheduled tylenol and PT/OT as tolerated (2) Left knee pain Current Visit: Yes Status: Acute Code(s): M25.562 - PAIN IN LEFT KNEE SNOMED Code(s): 91346078 Comment: c/o left knee pain - no recent injury , no swelling or redness - reports pain improves with ambulation - suspect this is r/t arthritis - will add lidocaine patch (3) Hypertension Current Visit: Yes Status: Chronic Priority: Medium Code(s): I10 - ESSENTIAL (PRIMARY) HYPERTENSION SNOMED Code(s): 72672112 Comment: - normotensive, bradycardia improving HR 60's today - decrease metoprolol at 12.5 mg (4) Subarachnoid hemorrhage Current Visit: Yes Status: Acute Code(s): I60.9 - NONTRAUMATIC SUBARACHNOID HEMORRHAGE, UNSPECIFIED SNOMED Code(s): 988243023 Comment: - Suspect secondary to fall - Repeat CT 08/01 shows stable SAH, no surgical intervention as per neurosurgery - S/P vit K and 1 unit FFP - INR down to 1.14 with goal 1.4 or lower as per neurosurgery - Neurosurgery recommends holding anticoagulation preferably for one month, though 2 weeks would be acceptable - resume as long as patient is stable - Question if she remains a candidate with her age and deconditioning. Also patient has been in NSR (5) Urinary retention Current Visit: Yes Status: Acute Code(s): R33.9 - RETENTION OF URINE, UNSPECIFIED SNOMED Code(s): 241462623 Comment: - Resolved - bladder scans PRN - Continue Myrbetriq - Continue bowel regimen as constipation may be contributing (6) Atrial fibrillation Current Visit: No Status: Chronic Priority: Medium Code(s): I48.91 - UNSPECIFIED ATRIAL FIBRILLATION SNOMED Code(s): 17434395 Comment: - Currently in NSR - Continue Metoprolol - Hold coumadin (7) Hx of ischemic left MCA stroke Current Visit: No Status: Chronic Priority: High Code(s): Z86.73 - PRSNL HX OF TIA (TIA), AND CEREB INFRC W/O RESID DEFICITS SNOMED Code(s): 171851590 Comment: - Hx: 2012 with residual expressive aphasia and right sided weakness currently at baseline - Continue statin - Holding anticoagulation (8) DVT prophylaxis Current Visit: Yes Status: Acute Priority: High Code(s): HXG2882 - SNOMED Code(s): 260881567 Comment: - SCDs only, anticoagulation contraindicated in setting of SAH (9) Full code status Current Visit: Yes Status: Acute Priority: High Code(s): Z78.9 - OTHER SPECIFIED HEALTH STATUS SNOMED Code(s): 047121215 Status and Disposition: Inpatient. Patient is in assisted living at [facility]. May require KAZ at discharge.
[2018-08-10] MEDS: Lidocaine PATCH 5%* 1 PATCH TRANSDERM SCH (17:59)
[2018-08-11] MEDS: Acetaminophen TAB* 325 MG PO SCH ×3 (04:32→16:15)
[2018-08-11] MEDS ORDERED: Lidocaine Patch REMOVE* 1 NOTE MISC PATCH OFF SCH (06:00)
[2018-08-11] MEDS: Metoprolol Succinate XL TAB* 25 MG PO SCH (08:12)
[2018-08-11] MEDS: CMCS:Levetiracetam XR TAB(NF) 750 MG TAB.XR PO SCH (08:13)
[2018-08-11] MEDS: Timolol 0.5% OPTH.SOL* BTL BOTH EYES SCH (08:13)
[2018-08-11] MEDS: Docusate CAP* 100 MG PO SCH (08:13)
[2018-08-11] MEDS: LAMOTRIGINE 200 MG PO SCH (08:13)
[2018-08-11] MEDS: Mirabegron (NF) 25 MG TAB PO SCH (08:15)
[2018-08-11] MEDS: Lidocaine PATCH 5%* 1 PATCH TRANSDERM SCH (08:17)
[2018-08-11] MEDS ORDERED: Potassium Chlor TAB* 20 MEQ TAB.ER PO SCH (16:00)
[2018-08-11] MEDS: Atorvastatin* 10 MG TAB PO SCH (16:15)
[2018-08-11 16:34] VITALS: BP 146/79
[2018-08-11 16:52] LABS: ABS Basophils 0.1 10^3/ul (0-0.2); ABS Eosinophils 0.1 10^3/ul (0-0.6); ABS Lymphocytes 1.4 10^3/ul (1.0-4.8); ABS Neutrophils 5.4 10^3/ul (1.5-7.7); ABS Nucleated RBC 0 10^3/ul; Eosinophil % 1.4 %; Hematocrit 41 % (35-47); Hemoglobin 13.7 g/dl (12.0-16.0); Lymphocyte % 17.5 %; Mean Corpuscular HGB Conc 33 g/dl (31-36); Mean Corpuscular Hemoglobin 31 pg (27-31); Mean Corpuscular Volume 94 fL (80-97); Mean Platelet Volume 8.6 fL (7.4-10.4); Nucleated Red Blood Cells % 0; Platelet Count 275 10^3/ul (150-450); Red Blood Count 4.43 10^6/ul (4.00-5.40); Red Cell Distribution Width 14 % (10.5-15); White Blood Count 7.9 10^3/ul (3.5-10.8)
[2018-08-11 17:03] LABS: BUN/Creatinine Ratio 28.9 (8-20); Calcium 9.7 mg/dL (8.6-10.3); EGFR African American 79.1 (>60); EGFR Non-African American 65.3 (>60); Potassium 4.3 mmol/L (3.5-5.0)
--- NOTE | 2018-08-12 02:16 | DS ---
CC: Patrica Ramos MD; Darrius Mercado MD * DISCHARGE SUMMARY: DATE OF ADMISSION: 07/31/18 DATE OF DISCHARGE: 08/11/18 PRIMARY CARE PROVIDER: Patrica Ramos MD NEUROLOGIST: Darrius Mercado MD ATTENDING PHYSICIAN: Julianna Rene MD * (dictated by BROOKS Cobos). PRIMARY DIAGNOSIS: Subarachnoid hemorrhage. SECONDARY DIAGNOSES: 1. Cerebrovascular accident with expressive aphasia, right upper extremity sensory deficit, weakness. 2. Atrial fibrillation, on warfarin. 3. Seizure disorder. 4. Osteoporosis. STUDIES WHILE IN THE HOSPITAL: Hip/pelvis x-ray, 07/30/18, impression: Possible constipation, clinical correlation is needed. Osteoarthritic narrowing at the right hip joint, no acute fracture or dislocation. Lumbar spine x-ray, 07/30/18, impression: No acute pathology, mild dextroscoliosis of the lumbar spine, possible constipation, much fecal matter in the left colon and retrosigmoid. Rib x-ray, 07/31/18, impression: Diffuse prominent lung markings, most likely a few small scattered pulmonary granulomas; poorly defined hazy opacities (2.8 cm size) in the right mid lung zone, possibly early pneumonia; followup films suggested as symptoms warrant. Brain CT, 07/31/18, impression: Small focus of acute subarachnoid hemorrhage in the high left frontal region; chronic encephalopathic changes in the left posterior frontal-left parietal region, probably old infarct; no acute intracranial pathology is appreciated; chronic atrophic and micro-ischemic changes are noted. Cervical spine CT, 07/31/18, impression: Stable or slightly smaller volume of subarachnoid hemorrhage involving the left frontal lobe relative to the most recent CT of the brain acquired at 0343 hours. Degenerative disk disease of the cervical spine without acute fracture or dislocation. In the left lobe of the thyroid, there is a 1.6 cm hypoattenuation focus with Hounsfield unit slightly greater than that of a simple cyst on a non-emergent basis superior characterization of the thyroid can be made with ultrasound. Additional chronic and degenerative changes described in the body of the report. Brain CT, impression: As above. Brain CT, 08/01/18, impression: Stable subarachnoid hemorrhage along the left frontal cortical sulci, no new lesions. Knee x-ray, 08/01/18, impression: Osteopenia, osteoarthritis, joint effusion, no acute osseous injury. The degree of osteopenia may make a nondisplaced fracture radiographically occult. If symptoms persist, recommend repeat imaging. Lumbar spine CT, 08/03/18, impression: Multilevel degenerative changes of the lumbar spine mostly similar to the 01/20/16 CT of the lumbar spine. There is multilevel degenerative disk disease that is most severe at L3-4 where there is right of midline disk protrusion causing high-grade stenosis of the right neural foramen. This is worse when compared to the 01/20/16 CT of the lumbar spine. Pelvis CT, 08/03/18, impression: There is no acute fracture or dislocation involving the right pelvis or hip, chronic and degenerative changes described in the body of the report. Lumbar spine MRI, 08/04/18, impression: Scoliosis of the lumbar spine with degenerative disk disease at multiple levels. At L3-L4, there is moderate size right paracentral to right posterolateral disk extrusion likely impinging upon the right descending and right exiting nerve root at L3-L4. DISCHARGE MEDICATIONS: Home medications: 1. Cholecalciferol 1000 units p.o. daily. 2. Centrum Silver Women tablet 1 tab p.o. daily. 3. Timolol 0.5% ophthalmic solution 1 drop to both eyes b.i.d. 4. Mirabegron 25 mg p.o. daily. 5. Prolia 60 mg as ordered. 6. Acetaminophen 500 mg p.o. q.6 hours p.r.n. 7. Metoprolol succinate XL 25 mg p.o. daily. 8. Lamotrigine ER 200 mg p.o. b.i.d. 9. Levetiracetam 750 mg p.o. daily. 10. Atorvastatin 20 mg p.o. at bedtime. New home medications: 1. Lidocaine patch 5% 1 patch transdermally daily, remove patch after 24 hours. Discontinued home medications: 1. Warfarin. HISTORY OF PRESENT ILLNESS/HOSPITAL COURSE: Ms. Cisneros is an 83-year-old female with a past medical history as described above who presented to the ER on after a history of 2 falls in the past 2 days. The patient presented with her son. The patient has expressive aphasia and therefore has some difficulty relaying story, but between the two it was noted that the patient had difficulty walking and leg pain over the last 2 days. In the ER, the patient received a full workup which included x-rays of the hip and lumbar spine area as well as a head CT. It was noted on the head CT that the patient had a subarachnoid hemorrhage. Dr. Polo was consulted and recommended reversal of INR, fresh frozen plasma, and ICU transfer. It is noted that the patient was on warfarin for atrial fibrillation and reversal of the INR was desired. Over the following days, the patient's subarachnoid hemorrhage was monitored. She received 1 unit of fresh frozen plasma. Goal INR was achieved eventually with discontinuation of warfarin. The patient remained in normal sinus rhythm throughout her stay according to telemetry. Her home medications were continued for her other comorbidities. Dr. Polo recommended that the patient discontinue warfarin for 1 month stating that if medically necessary, the patient could be resumed after 2 weeks. Throughout the patient's stay, she continued to have low back pain which required a lumbar spine CAT scan and MRI. The patient's lumbar radiculopathy due to L3-L4 disk herniation was treated with Depo-Medrol 80 in the L3-4 inter- disk space. Until the day of discharge, this appeared to decrease the pain in the lower back as well as the right leg. The patient did have a bout of urinary retention throughout her stay. This was treated with the use of catheter for a couple of days trial. Without catheter was then ordered and the patient had routine bladder scans which revealed PVRs that were between 0 and 210 after voiding. PVRs were eventually discontinued and the patient was without complaints of retention after that. At the time of discharge, the patient denies chest pain, shortness of breath, cough, fever. She denies headache, dizziness, or lightheadedness. She denies abdominal pain. She continues to have some pain in the lumbar region as well as left knee pain which she states improves with ambulation and use of lidocaine patch. She denies pain in the calves. She denies neck pain and chest pain. She was accepted back to [facility]. Physical Therapy recommended a rolling walker for the patient for ambulation, but otherwise stated that she was moving well. They also recommended a commode as they state that she has an easier time getting up from the commode with the railing than from the seated position elsewhere. Ms. Cisneros is stable for discharge to [facility]. Her vital signs are temperature of 97.3 orally, heart rate 64, respiratory rate 12, oxygen saturation 99% on room air, blood pressure 146/79. DISCHARGE PLAN: Ms. Cisneros will be discharged to [facility]. ACTIVITY: As tolerated. DIET: Heart healthy. EDUCATION: 1. Follow up with primary care provider within 1 week to discuss blood thinner use. The patient to remain off warfarin for at least 1 month; if medically necessary, 2 weeks is acceptable. 2. Follow up with Dr. Mercado within 1 week as the patient is already established with him. 3. Follow up with Dr. Pedro if necessary for low back pain. 4. Discontinue use of warfarin (see above). 5. Lidocaine patch prescription sent to pharmacy. 6. Return to the ER or nearest hospital if you experience any worsening of symptoms, shortness of breath, lightheadedness, dizziness, chest discomfort, high fevers, chills, night sweats, loss of consciousness, or any other worrisome signs or symptoms. Return for worsening or new onset headache, nausea , vomiting, change in vision or loss of consciousness. This is a summarized report of a complex medical history and hospital stay. For further details, please see the entire medical record. TIME SPENT: Approximately 60 minutes was spent on this discharge, greater than half of that time was spent [id number] with the patient discussing the discharge plans and instructions. BROOKS GARY [id number]/CPS #: [id number] MTDD
== END 2018-08-11 20:00 | disposition home health service (06) | DRG 86 ==
LOC: ED 21:59 → MED 07-31 02:41 → ICU 07-31 05:29 → OBSVTOIN 07-31 10:39 → MEDTELE 08-01 11:57
PROVIDERS: ADMIT Internal Medicine; ATTEND Internal Medicine
PROC: 30233L1 Transfusion of Nonautologous Fresh Plasma into Peripheral Vein, Percutaneous Approach (ICD-10-PCS; principal; 2018-07-31)
DX: S06.6X0A Traumatic subarachnoid hemorrhage without loss of consciousness, initial encounter (principal); Q21.1 Atrial septal defect; I69.351 Hemiplegia and hemiparesis following cerebral infarction affecting right dominant side; I48.91 Unspecified atrial fibrillation; I10 Essential (primary) hypertension; M19.90 Unspecified osteoarthritis, unspecified site; M81.0 Age-related osteoporosis without current pathological fracture; H26.9 Unspecified cataract; H40.9 Unspecified glaucoma; G40.909 Epilepsy, unspecified, not intractable, without status epilepticus; R33.9 Retention of urine, unspecified; W17.89XA Other fall from one level to another, initial encounter; M25.461 Effusion, right knee; G93.89 Other specified disorders of brain; R79.1 Abnormal coagulation profile; K59.00 Constipation, unspecified; R00.1 Bradycardia, unspecified; M41.86 Other forms of scoliosis, lumbar region; M51.16 Intervertebral disc disorders with radiculopathy, lumbar region; E04.1 Nontoxic single thyroid nodule; M85.88 Other specified disorders of bone density and structure, other site; M17.11 Unilateral primary osteoarthritis, right knee; M25.561 Pain in right knee; M50.30 Other cervical disc degeneration, unspecified cervical region; M47.26 Other spondylosis with radiculopathy, lumbar region; Z87.440 Personal history of urinary (tract) infections; I69.320 Aphasia following cerebral infarction; Y92.009 Unspecified place in unspecified non-institutional (private) residence as the place of occurrence of the external cause; Z82.49 Family history of ischemic heart disease and other diseases of the circulatory system
CPT/HCPCS: 36415; 62323; 70450; 72100; 72125; 72131; 72148; 72192; 77003; 80048; 80053; 81003; 82550; 83605; 83735; 84075; 84443; 85025; 85610; 86140; 86900; 86901; 86927; 87641; 99284; A9270-GY; G8978-GP-CI; G8978-GP-CM; G8979-GP-CI; G8979-GP-CJ; G8980-GP-CI; G8987-GO-CK; G8988-GO-CJ; J1040; J2270; J3430; P9017

== ENCOUNTER 2019-07-13 08:46 | Inpatient (IN) | payer BC, MEDICARE ==
[2019-07-13 09:39] LABS: ABS Basophils 0.1 10^3/ul (0-0.2); ABS Eosinophils 0.2 10^3/ul (0-0.6); ABS Lymphocytes 1.4 10^3/ul (1.0-4.8); ABS Monocytes 0.9 10^3/ul (0-0.8); ABS Neutrophils 7.2 10^3/ul (1.5-7.7); Eosinophil % 1.6 %; Hematocrit 39 % (35-47); Hemoglobin 12.9 g/dL (12.0-16.0); Lymphocyte % 14.1 %; Mean Corpuscular HGB Conc 34 g/dL (31-36); Mean Corpuscular Hemoglobin 31 pg (27-31); Mean Corpuscular Volume 93 fL (80-97); Mean Platelet Volume 8.6 fL (7.4-10.4); Platelet Count 337 10^3/uL (150-450); Red Blood Count 4.13 10^6 /uL (3.70-4.87); Red Cell Distribution Width 14 % (10-15); White Blood Count 9.6 10^3/uL (3.5-10.8)
[2019-07-13 09:45] LABS: Influenza A Molecular Negative (Negative); Influenza B Molecular Negative (Negative)
[2019-07-13 09:48] LABS: INR 1.39 (0.82-1.09)
[2019-07-13 10:08] LABS: Albumin 3.9 g/dL (3.2-5.2); Albumin/Globulin Ratio 1.4 (1-3); BUN/Creatinine Ratio 15.5 (8-20); Calcium 9.6 mg/dL (8.6-10.3); EGFR African American 94.4 (>60); EGFR Non-African American 78.1 (>60); Globulin 2.7 g/dL (2-4); Magnesium 2.1 mg/dL (1.9-2.7); Potassium 3.5 mmol/L (3.5-5.0); Total Bilirubin 0.6 mg/dL (0.2-1.0); Total Protein 6.6 g/dL (6.4-8.9)
--- OUTSIDE RECORDS SUMMARY | 2019-07-13 10:09 | XMS REPORT | Continuity of Care Document ---
:1935 External Reference #:[id number] Author Name Alberto Willoughby M.D. Address [address] [place] [address] Care Team Providers Name Role Phone Patrica Ramos M.D. - Family Medicine Care Team Information Crochet B[employer]er Maria D Scott M.D. - Neurology Care Team Information Crochet Beader Giuseppe Whitmore M.D. - Endocrinology, Care Team Information Crochet B[employer]er [phone] Diabetes & Metabolism Hope Perez M.D. - Family Care Team Information Crochet Beader [phone] Medicine Problems Active Problems Provider Date Seizure Onset: Osteoporosis Onset: Degenerative spondylolisthesis Onset: Atrial fibrillation Onset: Pseudophakia Alberto Willoughby M.D. Onset: 12/16/2014 Primary open angle glaucoma Alberto Willoughby M.D. Onset: 12/16/2014 Severe / Advanced / End Stage Glaucoma Alberto Willoughby M.D. 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 Onset: 12/21/2014 Blepharitis Patrica Ayala O.D. Onset: 01/28/2015 Hypertropia Patrica Ayala O.D. Onset: 01/28/2015 Presbyopia Patrica Ayala O.D. Onset: 02/15/2015 Moderate Glaucoma Patrica Ayala O.D. Onset: 02/15/2015 External hordeolum Alberto Willoughby M.D. Onset: 04/18/2015 Primary open-angle glaucoma, severe stage Alberto Willoughby M.D. Onset: 2014 Presence of intraocular lens Alberto Willoughby M.D. Onset: 04/18/2015 Primary open angle glaucoma of left eye Alberto Willoughby M.D. Onset: 2016 Primary open angle glaucoma of right eye Alberto Willoughby M.D. Onset: 2016 Tear film insufficiency Alberto Willoughby M.D. Onset: 09/25/2016 Cerebrovascular accident Onset: Note: Left 2013 Conjunctival hemorrhage Adal Perez M.D. Onset: 05/14/2017 Social History Type Date Description Comments Sex Unknown ETOH Use Denies alcohol use Tobacco Use Start: Unknown Patient has never smoked Recreational Drug Use Denies Drug Use Smoking Status Reviewed: 06/23/19 Patient has never smoked Allergies, Adverse Reactions, Alerts Description No Known Drug Allergies Medications Active Medications SIG Qnty Indications Ordering Provider Date Timolol Maleate Instill One Drop 5units Alberto Willoughby, 01/27/2015 0.5% In Each Eye Once M.D. Solution Daily Systane Ultra As needed Alberto Willoughby, 12/08/2014 0.4-0.3% M.D. Solution Keppra XR Take One Tablet Unknown 750mg Tablets By Mouth Every ER 24HR Morning And 2 Tabs. AT Bedtime Atorvastatin Calcium Take One Tablet Unknown 20mg By Mouth Every Tablets Day Lidocaine Unknown 5% Patches Ensure Unknown Liquid Eq Acetaminophen Extra Unknown Strength 500mg Tablets Myrbetriq Unknown 50mg Tablets ER 24HR Lamotrigine 250 mg-morning Unknown 200mg Tablets 250mg-night Eliquis Unknown 2.5mg Tablets Cerovite Senior Unknown Tablets Lipitor Unknown 10mg Tablets Lamotrigine ER Take One Tablet Unknown 200mg By Mouth Twice A Tablets ER 24HR Day Vitamin D-1000 Maximum 1 daily Unknown Strength 1000Unit Tablets Multivitamins Unknown Capsules Levetiracetam 1500 in am/ 1500 Unknown 3000mg in pm Tablets Warfarin Sodium Unknown 5mg Tablets Metoprolol Succinate Unknown ER 25mg Tablets ER 24HR Immunizations Description No Information Available Vital Signs Description No Information Available Results Description No Information Available Procedures Description No Information Available Medical Devices Description No Information Available Encounters Description No Information Available Assessments Date Code Description Provider 06/23/2019 H40.1123 Primary open-angle glaucoma, left eye, Alberto Willoughby M.D. severe stage 06/23/2019 H40.1112 Primary open-angle glaucoma, right eye, Alberto Willoughby M.D. 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 06/23/2019 Z96.1 Presence of intraocular lens Alberto Willoughby M.D. Plan of Treatment 06/23/2019 - Alberto Willoughby M.D.H40.1123 Primary open-angle glaucoma, left eye , severe stageComments:Smoking can increase the risk of developing or worsening any eye related disease, as well as affect your overall health. If you are a smoker, we strongly recommend that you quit.If you are not a smoker, we strongly recommend that you do not start. Your glaucoma is stable at this time in your left eye.Your eye pressure is within an acceptable range, and your testing does not show any further deterioration at this time. Please continue your treatment as directed and keep follow up appointments.Follow up:6 Month Follow Up DFE/IOP You can expect to have your eyes dilated at your next visit. If Dr. Willoughby orders any additional testing, it may require extra time. We recommend that you bring sunglasses, as dilation drops often make you light sensitive until they wear off. We always recommend you bring someone to drive you home if you are uncomfortable driving with your eyes dilated. If you have any questions before your next visit, feel free to call our office at [phone].H40.1112 Primary open-angle glaucoma, right eye, moderate stageComments: Your Glaucoma is stable at this time in your right eye. Your eye pressure is within an acceptable range, and your testing does not show any further deterioration at this time. Please continue your treatment as directed and keep follow up appointments.H50.22 Vertical strabismus, left eyeComments:VISION IN BETTER IN LEFT GAZE DUE TO THE VERTICAL MISALIGNMENT OF THE EYESZ96.1 Presence of intraocular lensComments:The artificial lens implants in both eyes appear to be stable at this time. Functional Status Description No Information Available Mental Status Description No Information Available Referrals Description No Information Available
--- OUTSIDE RECORDS SUMMARY | 2019-07-13 10:09 | XMS REPORT | Continuity of Care Document ---
:1935 External Reference #:[id number] Author Name Hope Perez DO Address [address] [place] [address] Problems Active Problems Provider Date Completed stroke Onset: 01/16/2019 Degeneration of lumbar intervertebral disc Onset: 08/05/2018 Chronic kidney disease Onset: 05/20/2018 Aortic valve regurgitation Onset: 05/05/2017 Paroxysmal atrial fibrillation Onset: 01/01/2013 Subarachnoid hemorrhage Onset: 08/19/2018 Patent foramen ovale Onset: 10/19/2012 Tremor Darrius Porras MD Onset: 05/21/2019 Essential hypertension Onset: 04/19/2014 Inactive Problems Urgent desire to urinate Onset: 01/16/2019 Inactive: 01/16/2019 Social History Type Date Description Comments Sex Unknown Tobacco Use Start: Unknown Patient has never smoked Smoking Status Reviewed: 07/07/19 Patient has never smoked Allergies, Adverse Reactions, Alerts Description No Known Drug Allergies Medications Active Medications SIG Qnty Indications Ordering Date Provider Ian griffin; take one 90tabs Hope 07/07/2019 tablet by mouth DO Ana Tablets every day Myrbetriq 1 daily oral 30tabs Katerina Coronado, 10/21/2018 50mg MD Tablets ER 24HR Eliquis 1 twice daily oral 60tabs Darrius Porras MD 08/19/2018 2.5mg Tablets Timoptic 1 drop once dailu Unknown 07/04/2018 0.5% Ophthalmic Solution Atorvastatin Calcium 1 daily oral 90tabs ELDON Jerez 04/21/2018 20mg Tablets Metoprolol Succinate oral; take one 90tabs ELDON Jerez 03/17/2018 ER tablet by mouth 25mg Tablets ER every day 24HR Lamotrigine ER 1 twice daily Oral 60tabs Unknown 09/30/2017 200mg Tablets ER 24HR Prolia 1 q 6 months. Unknown 02/07/2016 60mg/ml Soln Subcutaneous Prefill Syringe Acetaminophen Extra 2 three times 180tabs Darrius Porras MD Strength daily prn Oral 500mg Tablets Levetiracetam One am, two pm Unknown 500mg Tablets Pain Relieving 1 patch one right Unknown Lidocaine Patch knee every day 4% Patches Medications Administered in Office Medication SIG Qnty Indications Ordering Provider Date TB Intradermal Test Unknown 07/23/2017 Injection Immunizations CPT Code Status Date Vaccine Lot # [id number] Given 04/03/2019 Flu < 65 years 18722 Given 03/26/2018 Influenza Virus Vaccine, Quadrivalent, Split, Im Use 0.25ML 91994 Given 03/26/2018 Influenza Virus Vaccine, Quadrivalent, Split, Im Use 0.25ML 58585 Given 03/26/2018 Influenza Virus Vaccine, Quadrivalent, Split, Im Use 0.25ML 12608 Given 03/26/2018 Flu < 65 years 11737 Given 03/26/2018 Influenza Virus Vaccine, Quadrivalent, Split, Preservative Free 08930 Given 03/26/2018 Flumist 70680 Given 03/26/2018 Flu High Dose 22536 Given 03/26/2018 Influenza Virus Vaccine, Split, Preserv Free, Intradermal Use 48727 Given 02/18/2017 Influenza Virus Vaccine, Split, Preserv Free, Intradermal Use 72800 Given 02/18/2017 Flu High Dose 91152 Given 02/18/2017 Flumist 31634 Given 02/18/2017 Influenza Virus Vaccine, Quadrivalent, Split, Preservative Free 31199 Given 02/18/2017 Flu < 65 years 46438 Given 02/18/2017 Influenza Virus Vaccine, Quadrivalent, Split, Im Use 0.25ML 29511 Given 02/18/2017 Influenza Virus Vaccine, Quadrivalent, Split, Im Use 0.25ML 55607 Given 02/18/2017 Influenza Virus Vaccine, Quadrivalent, Split, Im Use 0.25ML 14288 Given 02/07/2016 Influenza Virus Vaccine, Quadrivalent, Split, Im Use 0.25ML 06321 Given 02/07/2016 Influenza Virus Vaccine, Quadrivalent, Split, Im Use 0.25ML 18850 Given 02/07/2016 Influenza Virus Vaccine, Quadrivalent, Split, Im Use 0.25ML 15063 Given 02/07/2016 Flu < 65 years 45172 Given 02/07/2016 Influenza Virus Vaccine, Quadrivalent, Split, Preservative Free 68838 Given 02/07/2016 Flumist 30873 Given 02/07/2016 Flu High Dose 12878 Given 03/23/2015 Flu High Dose 89444 Given 03/23/2015 Flumist 09385 Given 03/23/2015 Influenza Virus Vaccine, Quadrivalent, Split, Preservative Free 34415 Given 03/23/2015 Flu < 65 years 52301 Given 03/23/2015 Influenza Virus Vaccine, Quadrivalent, Split, Im Use 0.25ML 49847 Given 03/23/2015 Influenza Virus Vaccine, Quadrivalent, Split, Im Use 0.25ML 81248 Given 03/23/2015 Influenza Virus Vaccine, Quadrivalent, Split, Im Use 0.25ML 42377 Given 02/01/2015 Prevnar 13 38172 Given 03/10/2014 Influenza Virus Vaccine, Quadrivalent, Split, Im Use 0.25ML 24328 Given 03/10/2014 Influenza Virus Vaccine, Quadrivalent, Split, Im Use 0.25ML 86261 Given 03/10/2014 Influenza Virus Vaccine, Quadrivalent, Split, Im Use 0.25ML 97876 Given 03/10/2014 Flu < 65 years 96262 Given 03/10/2014 Influenza Virus Vaccine, Quadrivalent, Split, Preservative Free 87894 Given 03/10/2014 Flumist 18140 Given 03/10/2014 Flu High Dose 35921 Given 03/17/2013 Flu High Dose 77397 Given 03/17/2013 Flumist 25073 Given 03/17/2013 Influenza Virus Vaccine, Quadrivalent, Split, Preservative Free 22135 Given 03/17/2013 Flu < 65 years 03903 Given 03/17/2013 Influenza Virus Vaccine, Quadrivalent, Split, Im Use 0.25ML 33010 Given 03/17/2013 Influenza Virus Vaccine, Quadrivalent, Split, Im Use 0.25ML 94681 Given 03/17/2013 Influenza Virus Vaccine, Quadrivalent, Split, Im Use 0.25ML 47224 Given 07/25/2011 Zoster Shingles Vaccine For Subcutaneous Injection 33526 Given 02/26/2011 Tdap - Boostrix/Adacel 70964 Given 02/26/2011 Influenza Virus Vaccine, Quadrivalent, Split, Im Use 0.25ML 82963 Given 02/26/2011 Flu High Dose 08841 Given 04/02/2006 Influenza Virus Vaccine, Quadrivalent, Split, Im Use 0.25ML 44190 Given 04/03/2001 Pneumovax - for >=2years - PPSV23 Vital Signs Date Vital Result Comment 07/07/2019 1:13pm BP Systolic 114 mmHg BP Diastolic 68 mmHg Height 59 inches 4'11" Weight 111.00 lb Heart Rate 78 /min Body Temperature 98.8 F O2 % BldC Oximetry 97 % BMI (Body Mass Index) 22.4 kg/m2 Right Visual Acuity Distance 20/70 Left Visual Acuity Distance 20/100 Both Visual Acuity Distance 20/70 01/13/2019 1:39pm BP Systolic 112 mmHg Weight 116.00 lb Heart Rate 74 /min Body Temperature 99.1 F O2 % BldC Oximetry 97 % Results Test Acquired Date Facility Test Result H/L Range Note Order 07/07/2019 [facility] <[facility]> Evaluate And Treat Procedures Date Code Description Status 07/07/2019 19857 Brief Emotional/Behav Assessment W/ Scoring Doc Per Completed Standard Inst Medical Devices Description No Information Available Encounters Description No Information Available Assessments Date Code Description Provider 07/07/2019 Z00.00 Encounter for general adult medical Hope Perez DO examination without abnormal findings 07/07/2019 M25.569 Pain in unspecified knee Hope Perez, 07/07/2019 R32 Unspecified urinary incontinence Hope Perez DO 07/07/2019 R25.1 Tremor, unspecified Hope Perez, 07/07/2019 R23.8 Other skin changes Hope Perez DO Plan of Treatment Future Appointment(s):01/05/2020 2:00 pm - Hope Perez DO at [facility] Main09/2019 - Hope Perez DOZ00.00 Encounter for general adult medical examination without abnormal findingsComments:Overall frail woman with multiple medical conditionsShe is at risk for fall and uses a rolling walkerI have also discussed doing PT with her She has many specialists and will be following with them as well Her depression screen is negative but, having never worked with her before, she seems a bit downand apologized for taking my time - reassurance provided to patient that happy to be of help if I can in any wayM25.569 Pain in unspecified kneeComments:Bilateral knee pain - discussion as [id number] Unspecified urinary incontinenceComments:Discussion as kozfdF10.1 Tremor, unspecifiedComments:sees neuro mutmiwbfumbxpouD27.8 Other skin changesComments: discussion as aboveAllNew Medication:Cerovite Senior - oral; take one tablet by mouth every dayComments:Speech issues Functional Status Description No Information Available Mental Status Description No Information Available Referrals Description No Information Available
--- OUTSIDE RECORDS SUMMARY | 2019-07-13 10:09 | XMS REPORT | Continuity of Care Document ---
:1935 External Reference #:[id number] Author Name Hope Perez DO Address [address] [place] [address] Problems Active Problems Provider Date Completed stroke [...] Lidocaine Patch knee every day 4% Patches Vitamin D3 Gummies tab by mouth every Unknown day 25mcg (1000 Ut) Chewtabs Medications Administered in Office Medication SIG Qnty Indications Ordering Provider Date TB Intradermal Test Unknown 07/23/2017 Injection Immunizations CPT Code Status Date Vaccine Lot # [id number] Given 04/03/2019 Flu < 65 years 42723 Given 03/26/2018 Influenza Virus Vaccine, Quadrivalent, Split, Im Use 0.25ML 77308 Given 03/26/2018 Influenza Virus Vaccine, Quadrivalent, Split, Im Use 0.25ML 42781 Given 03/26/2018 Influenza Virus Vaccine, Quadrivalent, Split, Im Use 0.25ML 46641 Given 03/26/2018 Flu < 65 years 47581 Given 03/26/2018 Influenza Virus Vaccine, Quadrivalent, Split, Preservative Free 07004 Given 03/26/2018 Flumist 44192 Given 03/26/2018 Flu High Dose 29696 Given 03/26/2018 Influenza Virus Vaccine, Split, Preserv Free, Intradermal Use 02714 Given 02/18/2017 Influenza Virus Vaccine, Split, Preserv Free, Intradermal Use 67830 Given 02/18/2017 Flu High Dose 88774 Given 02/18/2017 Flumist 73093 Given 02/18/2017 Influenza Virus Vaccine, Quadrivalent, Split, Preservative Free 45557 Given 02/18/2017 Flu < 65 years 38294 Given 02/18/2017 Influenza Virus Vaccine, Quadrivalent, Split, Im Use 0.25ML 44939 Given 02/18/2017 Influenza Virus Vaccine, Quadrivalent, Split, Im Use 0.25ML 16041 Given 02/18/2017 Influenza Virus Vaccine, Quadrivalent, Split, Im Use 0.25ML 68897 Given 02/07/2016 Influenza Virus Vaccine, Quadrivalent, Split, Im Use 0.25ML 58629 Given 02/07/2016 Influenza Virus Vaccine, Quadrivalent, Split, Im Use 0.25ML 70568 Given 02/07/2016 Influenza Virus Vaccine, Quadrivalent, Split, Im Use 0.25ML 00685 Given 02/07/2016 Flu < 65 years 37372 Given 02/07/2016 Influenza Virus Vaccine, Quadrivalent, Split, Preservative Free 69260 Given 02/07/2016 Flumist 35013 Given 02/07/2016 Flu High Dose 15771 Given 03/23/2015 Flu High Dose 95208 Given 03/23/2015 Flumist 69495 Given 03/23/2015 Influenza Virus Vaccine, Quadrivalent, Split, Preservative Free 67473 Given 03/23/2015 Flu < 65 years 35891 Given 03/23/2015 Influenza Virus Vaccine, Quadrivalent, Split, Im Use 0.25ML 22343 Given 03/23/2015 Influenza Virus Vaccine, Quadrivalent, Split, Im Use 0.25ML 45114 Given 03/23/2015 Influenza Virus Vaccine, Quadrivalent, Split, Im Use 0.25ML 54631 Given 02/01/2015 Prevnar 13 99640 Given 03/10/2014 Influenza Virus Vaccine, Quadrivalent, Split, Im Use 0.25ML 88661 Given 03/10/2014 Influenza Virus Vaccine, Quadrivalent, Split, Im Use 0.25ML 20465 Given 03/10/2014 Influenza Virus Vaccine, Quadrivalent, Split, Im Use 0.25ML 72436 Given 03/10/2014 Flu < 65 years 49185 Given 03/10/2014 Influenza Virus Vaccine, Quadrivalent, Split, Preservative Free 01304 Given 03/10/2014 Flumist 69625 Given 03/10/2014 Flu High Dose 57642 Given 03/17/2013 Flu High Dose 46080 Given 03/17/2013 Flumist 28182 Given 03/17/2013 Influenza Virus Vaccine, Quadrivalent, Split, Preservative Free 25448 Given 03/17/2013 Flu < 65 years 39933 Given 03/17/2013 Influenza Virus Vaccine, Quadrivalent, Split, Im Use 0.25ML 04510 Given 03/17/2013 Influenza Virus Vaccine, Quadrivalent, Split, Im Use 0.25ML 69883 Given 03/17/2013 Influenza Virus Vaccine, Quadrivalent, Split, Im Use 0.25ML 66857 Given 07/25/2011 Zoster Shingles Vaccine For Subcutaneous Injection 82671 Given 02/26/2011 Tdap - Boostrix/Adacel 12895 Given 02/26/2011 Influenza Virus Vaccine, Quadrivalent, Split, Im Use 0.25ML 01732 Given 02/26/2011 Flu High Dose 50820 Given 04/02/2006 Influenza Virus Vaccine, Quadrivalent, Split, Im Use 0.25ML 59834 Given 04/03/2001 Pneumovax - for >=2years - [...] Date Facility Test Result H/L Range Note Urinalysis Profile 07/08/2019 [facility] Urine Color Tila [address] [place] [address] [phone] Urine Appearance Turbid Urine Specific [place] 1.024 Normal 1.010-1.030 Urine pH 5.0 Normal 5-9 Urine Urobilinogen Negative Negative Urine Ketones Negative Negative Urine Protein 2+(100 mg/dL) Abnormal Negative Urine Leukocytes Trace Abnormal Negative Urine Blood Negative Negative * * Abnormal Negative 1 Urine Nitrite Negative Negative Urine Bilirubin Negative Negative Urine Glucose Negative Negative Urine White Blood Cell 1+(6-10/hpf) Abnormal Absent Urine Red Blood Cell Absent Absent Urine Bacteria Absent Absent Urine Squamous Epithelial Cell Present Abnormal Absent Urine Calcium Oxalate Cryst Present Abnormal Absent Urine Culture And 07/08/2019 [facility] Urine Culture SEE RESULT [address] [place] [address] [phone] Order 07/07/2019 [facility]> [facility] Evaluate And Treat 1 *Ascorbic acid is present which may interfere with detection of blood. 2 SEE RESULT BELOW Name: RACHEL CISNEROS : [address]: Hope Perez DO Acct: [id number] Unit: [id number] AGE: 84 Location: [facility] Re07/08/19 SEX: F Status: REG REF SPEC: [id number] RODRIGUE: 07/08/19-[address]: Hope Perez DO REQ: [id number] RECD: 07/09/19-1213 STATUS: COMP _ SOURCE: URINE SPDESC: ORDERED: Urine Culture COMMENTS: [id number] QUERIES: Urine Source: Random Procedure Result Reported Site Urine Culture Final 07/10/19- 1417 ML No Growth (<1,000 CFU/mL) * ML - Main Lab . END OF REPORT DEPARTMENT OF PATHOLOGY, [address] [place] [address] Leoncio Ivy M.D. Director [facility] # [id number] Procedures Date Code Description Status 07/07/2019 58169 Brief Emotional/Behav Assessment W/ Scoring Doc Per Completed Standard Inst Medical Devices Description No Information Available Encounters Description No Information Available Assessments Date Code Description Provider 07/07/2019 Z00.00 Encounter for general adult medical Hope Perez, examination without abnormal findings 07/07/2019 M25.569 Pain in unspecified knee Hope Perez, DO 07/07/2019 R32 Unspecified urinary incontinence Hope Perez, DO 07/07/2019 R25.1 Tremor, unspecified Hope Perez, DO 07/07/2019 R23.8 Other skin changes Hope Perez DO Plan of Treatment Future Appointment(s):01/05/2020 2:00 pm - Hope Perez, DO at [facility] Main09/2019 - Hope Perez DOZ00.00 Encounter [...] unspecified kneeComments:Bilateral knee pain - discussion as [id number] Unspecified urinary incontinenceComments:Discussion as iseahV08.1 Tremor, unspecifiedComments:sees neuro utzrwgfpftxikdcB92.8 Other skin changesComments: discussion as aboveAllNew Medication:Cerovite Senior - oral; take one tablet by mouth every dayComments:Speech issues Functional Status Description No Information Available Mental Status Description No Information Available Referrals Description No Information Available
[2019-07-13] MEDS ORDERED: NS 0.9% 1000 ML** 1,000 ML IV ONE (10:21)
[2019-07-13] MEDS ORDERED: cefTRIAXone(*) 1 GM in NS 0.9% 50 ML* 50 ML IVPB ONE (10:33)
[2019-07-13] MEDS ORDERED: Azithromycin 500 mg/250 ml NS 500 MG/250 ML BAG IVPB ONE (10:34)
[2019-07-13] MEDS ORDERED: levETIRAcetam TAB* 500 MG PO ONE (10:54)
--- NOTE | 2019-07-13 10:54 | ED ---
Influenza-Like Illness - HPI Summary HPI Summary: This patient is an 84-year-old female with a history of stroke with aphasia, seizures and atrial fibrillation presenting to the ED from [facility]. Patient has aphasia and history of present illness is limited. Pt states she had a fall this morning and is endorsing "pain all over." She states this was not from the fall, however from the past few weeks of feeling ill. She is endorsing pain throughout her joints. Also has been having intermittent fevers over the past 2 weeks. She was able to see her PCP, Dr. ayala and on 07/07/19. At that time there were no obvious signs of a PNA or a influenza. She states she continues to feel ill and lethargic. Decreased by mouth intake. She's been having fevers at [place] and has been getting Tylenol for this. History of epileptic seizures, seizures will often happen with high fevers as well. She denies any cardiac history. She states she did not take her morning medications area she denies any cough, however she states she is having a feeling of congestion like she needs to cough, but unable to at this time. No pain to the sinuses or pain to the throat. Denies any chest pain or shortness of breath. - History of Current Complaint Chief Complaint: EDWeakness Time Seen by Provider: 07/13/19 08:50 Hx Obtained From: Patient Onset/Duration: Gradual Onset, Lasting Weeks Severity: Moderate Associated Signs & Symptoms: Fever, T Max - 100.8, F/C Related Hx: Possible Flu/Infectious Exposure - Allergy/Home Medications Allergies/Adverse Reactions: Allergies Allergy/AdvReac Type Severity Reaction Status Date / Time No Known Allergies Allergy Verified 06/16/19 14:16 Home Medications: Home Medications Atorvastatin* [Lipitor 20 MG*] 20 mg PO DAILY 07/13/19 [History Confirmed ] Lidocaine PATCH 5%* [Lidoderm 5% Patch*] 4 % TRANSDERM DAILY 07/13/19 [History Confirmed 07/13/19] levETIRAcetam TAB* [Keppra TAB*] 1,000 mg PO QPM 07/13/19 [History Confirmed 03/22] PMH/Surg Hx/FS Hx/Imm Hx Previously Healthy: Yes Endocrine/Hematology History: Reports: Hx Anticoagulant Therapy Denies: Hx Thyroid Disease Comment Only: Hx Diabetes - DIET CONTROLLED Cardiovascular History: Reports: Hx Atrial Fibrillation, 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, Hx Hypertension, Hx Syncope, Other Cardiovascular Problems/Disorders - Left atrial appendage clot Denies: Hx Pacemaker/ICD Respiratory History: Denies: Hx Asthma, Hx Chronic Obstructive Pulmonary Disease (COPD) GI History: Reports: Other GI Disorders - PT had GI consult, unknown results Denies: Hx Ulcer History: Reports: Other Problems/Disorders - uti Denies: Hx Dialysis, Hx Renal Disease Musculoskeletal History: Reports: Hx Arthritis, Hx Osteoporosis, Other Musculoskeletal History - PAIN IN RIGHT KNEE MORE THAN LEFT Denies: Hx Rheumatoid Arthritis Sensory History: Reports: Hx Cataracts, Hx Contacts or Glasses, Hx Glaucoma - PREGLAUCOMA, CATARACTS Denies: Hx Hearing Aid Opthamlomology History: Reports: Hx Cataracts, Hx Contacts or Glasses, Hx Glaucoma - PREGLAUCOMA, CATARACTS Neurological History: Reports: Hx Headaches, Hx Seizures, Hx Transient Ischemic Attacks (TIA) Psychiatric History: Denies: Hx Panic Disorder - Surgical History Surgery Procedure, Year, and Place: Knee arthroscopy 2004. tonsils as child Hx Anesthesia Reactions: No - Immunization History Date of Tetanus Vaccine: Unsure Date of Influenza Vaccine: unsure Hx Pertussis Vaccination: No Immunizations Up to Date: Yes Infectious Disease History: No Infectious Disease History: Denies: Hx Hepatitis, Hx Human Immunodeficiency Virus (HIV), Traveled Outside the [place] in Last 30 Days - Family History Known Family History: Positive: Cardiac Disease, Hypertension - Social History Occupation: Unemployed Lives: [facility] Alcohol Use: None Hx Substance Use: No Substance Use Type: Reports: None Hx Tobacco Use: No Smoking Status (MU): Never Smoked Tobacco Have You Smoked in the Last Year: No Review of Systems Positive: Fever, Fatigue. Negative: Chills, Skin Diaphoresis Negative: Blurred Vision, Diplopia, Drainage, Erythema Negative: Sore Throat Negative: Palpitations, Chest Pain Negative: Shortness Of Breath, Cough Negative: Abdominal Pain, Vomiting, Diarrhea, Nausea Positive: Myalgia Skin: Negative Positive: Weakness. Negative: Headache, Paresthesia, Numbness, Syncope, Slurred Speech All Other Systems Reviewed And Are Negative: Yes Physical Exam Triage Information Reviewed: Yes Vital Signs On Initial Exam: Initial Vitals Temp Pulse Resp BP Pulse Ox 96.7 F 65 15 174/82 99 07/13/19 08:55 07/13/19 08:55 07/13/19 08:55 07/13/19 08:55 07/13/19 08:55 Vital Signs Reviewed: Yes Appearance: Positive: Ill-Appearing Skin: Positive: Pale Head/Face: Positive: Normal Head/Face Inspection Eyes: Positive: EOMI, FARTUN, Conjunctiva Clear Neck: Positive: Supple, No Lymphadenopathy Respiratory/Lung Sounds: Positive: Clear to Auscultation, Breath Sounds Present Cardiovascular: Positive: RRR, Pulses are Symmetrical in both Upper and Lower Extremities. Negative: Leg Edema Left, Leg Edema Right Musculoskeletal: Positive: Strength/ROM Intact Neurological: Positive: Other - aphasia - [place] Coma Scale Best Eye Response: 3 - To Speech Best Motor Response: 6 - Obeys Commands Best Verbal Response: 5 - Oriented Coma Scale Total: 14 Procedures - Sedation Patient Received Moderate/Deep Sedation with Procedure: No Diagnostics - Vital Signs Vital Signs Temp Pulse Resp BP Pulse Ox 07/13/19 08:55 96.7 F 65 15 174/82 99 - Laboratory Lab Results: Lab Results 07/13/19 07/13/19 07/13/19 Range/Units 09:00 09:25 09:25 WBC 9.6 (3.5-10.8) 10^3/uL RBC 4.13 (3.70-4.87) 10^6 /uL Hgb 12.9 (12.0-16.0) g/dL Hct 39 (35-47) % MCV 93 (80-97) fL MCH 31 (27-31) pg MCHC 34 (31-36) g/dL RDW 14 (10-15) % Plt Count 337 (150-450) 10^3/uL MPV 8.6 (7.4-10.4) fL Neut % (Auto) 74.2 % Lymph % (Auto) 14.1 % [place] % (Auto) 9.2 % Eos % (Auto) 1.6 % Baso % (Auto) 0.9 % Absolute Neuts (auto) 7.2 (1.5-7.7) 10^3/ul Absolute Lymphs (auto) 1.4 (1.0-4.8) 10^3/ul Absolute Monos (auto) 0.9 H (0-0.8) 10^3/ul Absolute Eos (auto) 0.2 (0-0.6) 10^3/ul Absolute Basos (auto) 0.1 (0-0.2) 10^3/ul Absolute Nucleated RBC 0.0 10^3/ul Nucleated RBC % 0.0 INR (Anticoag Therapy) (0.82-1.09) Sodium 140 (135-145) mmol/L Potassium 3.5 (3.5-5.0) mmol/L Chloride 105 (101-111) mmol/L Carbon Dioxide 24 (22-32) mmol/L Anion Gap 11 (2-11) mmol/L BUN 11 (6-24) mg/dL Creatinine 0.71 (0.51-0.95) mg/dL Est GFR ( Amer) 94.4 (>60) Est GFR (Non-Af Amer) 78.1 (>60) BUN/Creatinine Ratio 15.5 (8-20) Glucose 88 (70-100) mg/dL Calcium 9.6 (8.6-10.3) mg/dL Magnesium 2.1 (1.9-2.7) mg/dL Total Bilirubin 0.60 (0.2-1.0) mg/dL AST 35 (13-39) U/L ALT 18 (7-52) U/L Alkaline Phosphatase 82 (34-104) U/L C-Reactive Protein Pending Total Protein 6.6 (6.4-8.9) g/dL Albumin 3.9 (3.2-5.2) g/dL Globulin 2.7 (2-4) g/dL Albumin/Globulin Ratio 1.4 (1-3) Influenza A (Rapid) Negative (Negative) Influenza B (Rapid) Negative (Negative) 07/13/19 Range/Units 09:25 WBC (3.5-10.8) 10^3/uL RBC (3.70-4.87) 10^6 /uL Hgb (12.0-16.0) g/dL Hct (35-47) % MCV (80-97) fL MCH (27-31) pg MCHC (31-36) g/dL RDW (10-15) % Plt Count (150-450) 10^3/uL MPV (7.4-10.4) fL Neut % (Auto) % Lymph % (Auto) % [place] % (Auto) % Eos % (Auto) % Baso % (Auto) % Absolute Neuts (auto) (1.5-7.7) 10^3/ul Absolute Lymphs (auto) (1.0-4.8) 10^3/ul Absolute Monos (auto) (0-0.8) 10^3/ul Absolute Eos (auto) (0-0.6) 10^3/ul Absolute Basos (auto) (0-0.2) 10^3/ul Absolute Nucleated RBC 10^3/ul Nucleated RBC % INR (Anticoag Therapy) 1.39 H (0.82-1.09) Sodium (135-145) mmol/L Potassium (3.5-5.0) mmol/L Chloride (101-111) mmol/L Carbon Dioxide (22-32) mmol/L Anion Gap (2-11) mmol/L BUN (6-24) mg/dL Creatinine (0.51-0.95) mg/dL Est GFR ( Amer) (>60) Est GFR (Non-Af Amer) (>60) BUN/Creatinine Ratio (8-20) Glucose (70-100) mg/dL Calcium (8.6-10.3) mg/dL Magnesium (1.9-2.7) mg/dL Total Bilirubin (0.2-1.0) mg/dL AST (13-39) U/L ALT (7-52) U/L Alkaline Phosphatase (34-104) U/L C-Reactive Protein Total Protein (6.4-8.9) g/dL Albumin (3.2-5.2) g/dL Globulin (2-4) g/dL Albumin/Globulin Ratio (1-3) Influenza A (Rapid) (Negative) Influenza B (Rapid) (Negative) Result Diagrams: 07/13/19 09:25 07/13/19 09:25 Lab Statement: Any lab studies that have been ordered have been reviewed, and results considered in the medical decision making process. Flu Symptom Course/Dx - Course Course Of Treatment: On arrival into the ED, the patient appears ill. She does appear somewhat pale and lethargic. Patient is unwilling to open eyes until prompted to do so several times. Vital signs are stable on arrival and she is afebrile. She denies any chest pain or shortness of breath. She does endorse a feeling of congestion and feels she may need to cough, however has been unable to. She has been having intermittent fevers and lethargy over the past 2 weeks. She was seen by her doctor on 07/07/19. She has not been on antibiotics. Labs obtained which are fairly unremarkable. Influenza negative. UA negative. Blood culture sent and are pending. Chest x-ray obtained which shows right lobe infiltrates suggestive of a pneumonia. At this time, ceftriaxone 1 g and azithromycin 500 mg IV are given. 1 L normal saline given. 500 mg Keppra given in the ED. CRP is slightly elevated at 39. Physical examination, lungs are clear to auscultation. RRR. No evidence of atrial fibrillation at this time. Patient is on blood thinners and a CT brain and cervical spine were obtained due to a probable fall this morning. She does however continues to deny any headache, confusion or dizziness. Brain CT shows no fracture or intracranial hemorrhage. Discussed with family member at bedside. Patient will be admitted to the hospital service for further evaluation. Discussed case with Dr. Pace. Legionella and strep pneumo antigens obtained. - Diagnoses Differential Diagnosis/HQI/PQRI: Positive: Influenza, Pneumonia, Other - fevers , general weakness, illness Provider Diagnoses: Lethargic, PNA (pneumonia) - Physician Notifications Discussed Care Of Patient With: Jose Pace Instructed by Provider To: Admit As Inpatient Discharge ED - Sign-Out/Discharge Documenting (check all that apply): Patient Departure - Discharge Plan Condition: Fair Disposition: ADMITTED TO [facility] Referrals: Patrica Ramos MD [Primary Care Provider] - - Billing Disposition and Condition Condition: FAIR Disposition: Admitted to [facility]
[2019-07-13 10:55] LABS: C Reactive Protein 39.43 mg/L (<8.01)
[2019-07-13 13:27] LABS: TSH (Thyroid Stimulating Horm) 3.55 mcIU/mL (0.34-5.60)
[2019-07-13] MEDS: Metoprolol Succinate XL TAB* 25 MG PO SCH (14:55)
--- NOTE | 2019-07-13 15:51 | HP ---
CC: Dr. Patrica Ramos * HISTORY AND PHYSICAL: DATE OF ADMISSION: 07/13/19 PROVIDER: Karon Cheng NP PRIMARY CARE PROVIDER: Dr. Patrica Ramos. ATTENDING PHYSICIAN WHILE IN THE HOSPITAL: Dr. Jose Pace * (dictated by Karon Cheng NP). CHIEF COMPLAINT: 1. Fall. 2. Fatigue. HISTORY OF PRESENT ILLNESS: Ms. Cisneros is an 84-year-old female with a past medical history significant for CVA with apraxia, history of atrial fibrillation , history of seizures, hypertension, history of glaucoma, osteoporosis, history of subdural hematoma, who presented to the emergency room with complaints of fatigue and fevers on and off for 2 weeks. The patient reports that 2 weeks ago , she started feeling fatigued. She had a cough with low grade fever and has just not been feeling well. She reports today that she went to the bathroom. She turned to go to the bathroom and fell on the floor. She has had more confusion and more difficulty with her speech. Due to these findings, she was brought to the emergency room for further evaluation. According to [facility] staffEstephania, the patient has had symptoms for the past 2 weeks. She reports that 2 weeks ago, she has 4-day episode of fatigue, cough, fevers. She reports highest temperature was 99.0 and was for 1 day, but does report that the patient takes Tylenol daily. She does report that the patient had a UA checked at the [facility], which was negative. She reports today she was found sitting on the edge of the bed, she was more confused. The patient reported that she had fallen. Due to increased confusion and not making sense, ambulance was called and she was brought to the emergency room for further evaluation. long term does report the patient is normally independent and walks with a walker and is normally alert and oriented x3. The daughter does report that the patient has had some increased confusion, difficulty with her speech, but she does report that the difficulty with his speech comes and goes and is fluctuant at baseline, but is more pronounced when the patient has underlying infection or dehydration. While in the emergency room, the patient had routine lab work drawn. She had a chest x-ray which showed right middle lobe to right lower lobe infiltrate. She was given azithromycin, ceftriaxone, and Hospital Medicine was asked to see her for admission due to right lower lobe pneumonia. PAST MEDICAL HISTORY: Significant for: 1. CVA with aphasia. 2. Apraxia. 3. History of atrial fibrillation. 4. Seizures. 5. Hypertension. 6. Glaucoma. 7. Osteoporosis. 8. History of subdural hematoma. PAST SURGICAL HISTORY: Tonsillectomy. HOME MEDICATIONS: Include: 1. Tylenol 1000 mg t.i.d. p.r.n. pain. 2. Keppra 500 mg in the morning and 1000 mg in the p.m. 3. Vitamin D 1000 units p.o. daily. 4. Timolol 0.5% eye drops 1 drop to both eyes daily. 5. Myrbetriq 50 mg p.o. daily. 6. Metoprolol 25 mg p.o. daily. 7. Lamotrigine 200 mg b.i.d. 8. Multivitamin 1 tab p.o. daily. 9. Eliquis 2.5 mg p.o. b.i.d. 10. Lipitor 20 mg p.o. daily. ALLERGIES: No known drug allergies. FAMILY HISTORY: Mother and father with questionable history of heart disease, but unknown. No reported history of diabetes. No reported history of cancer. SOCIAL HISTORY: The patient denies any tobacco, alcohol or illicit drug use. 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 She is . She currently resides at [facility]. Surrogate decision maker in the event she is unable to make her own decisions is her daughter, Gwendolyn or son, Guille. She is a full code. REVIEW OF SYSTEMS: She does report and fatigued. Denies any chest pain or edema. She does report feeling of needing to cough and some congestion, but denies any hemoptysis or shortness of breath. She denies any nausea, vomiting, diarrhea, or abdominal pain. Denies any hematuria, dysuria, focal weakness, sensory loss, dysphagia, arthralgias, myalgias, rashes, lesions, open sores, psychosis, or anxiety. PHYSICAL EXAMINATION GENERAL: At this time, Ms. Cisneros is alert and oriented. She is sitting on the stretcher in the emergency room. She is in no acute distress. VITAL SIGNS: Blood pressure 174/82, heart rate 65, respirations 15, O2 saturation 99% on room air, temperature 96.7. HEENT: Head is atraumatic, normocephalic. Eyes: EOMs are intact. Sclerae anicteric and not pale. Oral mucosa is moist. NECK: Supple. LUNGS: With crackles on the bases in the right mid to lower lobe, left is clear. CARDIAC: S1, S2. Regular rate and rhythm. No rubs or gallops. ABDOMEN: Soft and nontender. Bowel sounds are present x4. EXTREMITIES: She is able to move all 4 extremities. There is no clubbing or cyanosis. NEUROLOGIC: She is awake. She is alert. She is oriented x3. She does have apraxia with her speech. SKIN: Intact. DIAGNOSTIC STUDIES/LAB DATA: WBCs are 9.6, RBCs 4.13, hemoglobin 12.9, hematocrit is 39, platelet count 337. INR 1.39. Sodium 140, potassium 3.5, chloride 105, carbon dioxide is 24, anion gap of 11, BUN 11, creatinine 0.71, glucose was 88, lactic acid 0.8, calcium 9.6, magnesium 2.1. ASTs were 35, ALTs were 18, alkaline phosphatase 82, C-reactive protein was 39.43. Flu A and B were both negative. She did have a chest x-ray, radiologist's impression: Right middle lobe to right lower lobe infiltrate suggestive of pneumonia. She had a CT of the brain and CT of the C-spine, radiologist's impression: No calvarial skull fracture or acute intracranial hemorrhage. No acute fracture or dislocation of the cervical spine. There are chronic degenerative changes in the brain and C-spine. In the left lobe of the thyroid, there is a 1.5 cm hypoattenuating lesion, unchanged since 07/31/18, if clinically warranted followup ultrasound of the thyroid. Stable findings in the lung apices consistent with apical scarring. She had electrocardiogram which showed sinus rhythm at a rate of 61. No ST or T-wave changes. ASSESSMENT AND PLAN: Ms. Cisneros is an 84-year-old female with a past medical history significant for cerebrovascular accident with apraxia, atrial fibrillation, seizures, hypertension, glaucoma, osteoporosis, chronic back pain , who presented to the emergency room with complaints of fatigue and fall and found to have right lower lobe pneumonia. She will be admitted under observation for: 1. Fall. I suspect that her fall is related to her underlying pneumonia and associated weakness due to her underlying infection. I will get PT to evaluate her. 2. Community-acquired pneumonia. The patient does have a chest x-ray concerning for right middle lobe and lower lobe pneumonia. She was given ceftriaxone and azithromycin in the emergency room. Blood cultures are currently pending. Urine for Legionella and Strep pneumoniae has been sent and is currently pending. We will continue her on ceftriaxone and azithromycin. 3. History of atrial fibrillation. The patient is currently in sinus rhythm. She should continue her metoprolol and Eliquis as previously prescribed. 4. Hypertension. She should continue on metoprolol 25 mg p.o. daily as previously prescribed. 5. Seizures. The patient currently takes Lamictal 200 mg b.i.d. and Keppra 500 in the morning, 1000 mg at night. I will send a Keppra level and Lamictal level, which are currently pending. We will place her on seizure precautions and monitor for any seizure activity. 6. History of cerebrovascular accident. The patient should continue on her statin and Eliquis as previously prescribed. 7. Glaucoma. She should continue on timolol eye drops as previously prescribed. 8. Chronic back pain. The patient does have chronic back pain for which she follows outpatient with pain management for spinal injections. We will continue her Lidoderm patch and Tylenol as needed for her pain. 9. FEN: She can have a regular diet. 10. Code status: She is a full code. 11. DVT prophylaxis: She is on Eliquis. TIME SPENT: Time spent on this admission was 60 minutes, greater than half that time was spent at the bedside reviewing events leading thus far to her hospitalization, performing physical exam, and reviewing my plan of care. I have discussed this with my attending, Dr. Jose Pace; he is in agreement with my plan. KARON CHENG, SEWAGE T[employer]ATMENT PLANT OPERATOR [id number]/[facility] #: [id number]
[2019-07-13] MEDS: levETIRAcetam TAB* 500 MG PO SCH (17:57)
[2019-07-13] MEDS: LAMOTRIGINE 200 MG PO SCH (20:26)
[2019-07-13] MEDS: Apixaban* 2.5 MG TAB PO SCH (20:26)
[2019-07-13] MEDS ORDERED: NS 0.9% 1000 ML/HR X 1 BAG (TOTAL 1000 ML) IV ONE (23:45)
[2019-07-14] MEDS: Oxybutynin XL TAB* 5 MG PO SCH ×2 (00:28→10:12)
[2019-07-14] MEDS ORDERED: NF:Mirabegron (NF) 50 MG TAB PO SCH (09:00)
[2019-07-14] MEDS ORDERED: Metoprolol Succinate XL TAB* 25 MG PO SCH (09:00)
--- NOTE | 2019-07-14 09:48 | PN ---
Subjective Date of Service: 07/14/19 Interval History: HOSPITALIST PROGRESS NOTE Patient seen and examined at bedside. Care reviewed and d/w Roselyn Felder RN. She feels weak today. Right sided chest pain and cough are less intense. C/o right arm pain from her last fall. Family History: Unchanged from Admission Social History: Unchanged from Admission Past Medical History: Unchanged from Admission Objective Active Medications: Acetaminophen (Tylenol Tab*) 650 mg PO Q6H PRN PRN Reason: MILD PAIN or TEMP > 100.4 Apixaban (Eliquis*) 2.5 mg PO BID [facility] Last Admin: 07/13/19 20:26 Dose: 2.5 mg Atorvastatin Calcium (Lipitor*) 20 mg PO DAILY [facility] Cholecalciferol (Vitamin D Tab*) 1,000 units PO DAILY [facility] Azithromycin (Zithromax 500 Mg/250 Ml) 500 mg in 250 mls @ 250 mls/hr IVPB Q24H [facility] Ceftriaxone Sodium 1 gm/ (Sodium Chloride) 50 mls @ 100 mls/hr IVPB Q24H [facility] Lamotrigine (Lamictal Xr (Nf)) 200 mg PO BID [facility] Last Admin: 07/13/19 20:26 Dose: 200 mg Levetiracetam (Keppra Tab*) 500 mg PO QAM [facility] Levetiracetam (Keppra Tab*) 1,000 mg PO QPM [facility] Last Admin: 07/13/19 17:57 Dose: 1,000 mg Metoprolol Succinate (Toprol Xl Tab*) 25 mg PO DAILY [facility] Last Admin: 07/13/19 14:55 Dose: 25 mg Oxybutynin Chloride (Ditropan Xl Tab*) 5 mg PO DAILY [facility] Last Admin: 07/14/19 00:28 Dose: Not Given Timolol Maleate (Timoptic 0.5% Opth*) 1 drop BOTH EYES DAILY [facility] Vital Signs - 8 hr 07/14/19 07/14/19 03:15 07:15 Temperature 98.6 F 97.7 F Pulse Rate 66 58 Respiratory 16 18 Rate Blood Pressure 140/70 141/69 (mmHg) O2 Sat by Pulse 97 97 Oximetry Oxygen Devices in Use Now: None Appearance: Frail elderly lady sitting up in a chair in NAD Eyes: No Scleral Icterus Ears/Nose/Mouth/Throat: Mucous Membranes Moist Neck: Trachea Midline Respiratory: Symmetrical Chest Expansion and Respiratory Effort, Clear to Auscultation Cardiovascular: RRR - Normal S1 and S2 Abdominal: NL Sounds; No Tenderness; No Distention Neurological: Alert and Oriented x 3, NL Muscle Strength and Tone Result Diagrams: 07/13/19 09:25 07/13/19 09:25 Microbiology and Other Data: Microbiology 07/13/19 12:10 Legionella Urinary Antigen - Final Urine Negative Legionella Antigen Streptococcus pneumoniae Ag Screen - Final Negative S. pneumo Antigen Assess/Plan/Problems-Billing Assessment: Mrs Cisneros is an 84yo F with PMH of CVA, Afib, seizures, HTN, osteoporosis, SDH, who presented to ED with c/o fatigue and episodes of fever for 2 weeks, found to have pneumonia. - Patient Problems (1) Community acquired bacterial pneumonia Comment: - PSI is 106 (mostly driven by her age), predicting mortality rate of 9.3%. - Legionella, pneumococcal Ags are negative, as well as Influenza. - Blood cultures show no growth so far. - Continue Ceftriaxone and Zithromax. (2) Physical deconditioning Comment: - Appears to be weaker than baseline. - PT evaluation. - May benefit of KAZ on discharge. (3) Right arm pain Comment: - Check xray. (4) Atrial fibrillation Comment: - In NSR. - Continue Metoprolol and Apixaban. (5) Seizure disorder Comment: - Continue Levotiracetam and Lamotrigine. (6) DVT prophylaxis Comment: - Apixaban. (7) Full code status Status and Disposition: Change to inpatient.
[2019-07-14] MEDS: Metoprolol Succinate XL TAB* 25 MG PO SCH (10:12)
[2019-07-14] MEDS: Apixaban* 2.5 MG TAB PO SCH ×2 (10:12→20:58)
[2019-07-14] MEDS: Cholecalciferol TAB* 1000 UNITS PO SCH (10:12)
[2019-07-14] MEDS: Timolol 0.5% OPTH.SOL* BTL BOTH EYES SCH (10:13)
[2019-07-14] MEDS: Atorvastatin* 20 MG TAB PO SCH (10:13)
[2019-07-14] MEDS: levETIRAcetam TAB* 500 MG PO SCH ×2 (10:13→17:44)
[2019-07-14] MEDS: LAMOTRIGINE 200 MG PO SCH ×2 (10:13→20:57)
[2019-07-14] MEDS: cefTRIAXone(*) 1 GM in NS 0.9% 50 ML* 50 ML IVPB SCH (10:14)
[2019-07-14] MEDS: Azithromycin 500 mg/250 ml NS 500 MG/250 ML BAG IVPB SCH (11:15)
[2019-07-14] MEDS: Acetaminophen TAB* 325 MG PO PRN (15:40)
[2019-07-14 17:20] LABS: Lamotrigine 15.7 mcg/mL (2.5 - 15.0)
[2019-07-15 08:11] LABS: ABS Basophils 0.1 10^3/ul (0-0.2); ABS Eosinophils 0.3 10^3/ul (0-0.6); ABS Lymphocytes 1.3 10^3/ul (1.0-4.8); ABS Monocytes 0.6 10^3/ul (0-0.8); ABS Neutrophils 3.4 10^3/ul (1.5-7.7); Eosinophil % 5.7 %; Hematocrit 37 % (35-47); Hemoglobin 12.3 g/dL (12.0-16.0); Lymphocyte % 22.3 %; Mean Corpuscular HGB Conc 34 g/dL (31-36); Mean Corpuscular Hemoglobin 31 pg (27-31); Mean Corpuscular Volume 93 fL (80-97); Mean Platelet Volume 8.4 fL (7.4-10.4); Platelet Count 297 10^3/uL (150-450); Red Blood Count 3.94 10^6 /uL (3.70-4.87); Red Cell Distribution Width 14 % (10-15); White Blood Count 5.7 10^3/uL (3.5-10.8)
[2019-07-15 08:25] LABS: BUN/Creatinine Ratio 12.3 (8-20); Calcium 8.6 mg/dL (8.6-10.3); EGFR African American 104.6 (>60); EGFR Non-African American 86.4 (>60); Potassium 3.3 mmol/L (3.5-5.0)
[2019-07-15] MEDS: Metoprolol Succinate XL TAB* 25 MG PO SCH (10:21)
[2019-07-15] MEDS: LAMOTRIGINE 200 MG PO SCH ×2 (10:21→19:37)
[2019-07-15] MEDS: Timolol 0.5% OPTH.SOL* BTL BOTH EYES SCH (10:21)
[2019-07-15] MEDS: Cholecalciferol TAB* 1000 UNITS PO SCH (10:21)
[2019-07-15] MEDS: cefTRIAXone(*) 1 GM in NS 0.9% 50 ML* 50 ML IVPB SCH (10:22)
[2019-07-15] MEDS: Apixaban* 2.5 MG TAB PO SCH ×2 (10:22→19:37)
[2019-07-15] MEDS: Atorvastatin* 20 MG TAB PO SCH (10:22)
[2019-07-15] MEDS: KCL 10 MEQ/50 ML IVPREMIX* 10 MEQ/50 ML BAG IV SCH ×3 (10:22→14:21)
[2019-07-15] MEDS: Oxybutynin XL TAB* 5 MG PO SCH (10:22)
[2019-07-15] MEDS: levETIRAcetam TAB* 500 MG PO SCH ×2 (10:22→17:46)
[2019-07-15 11:33] LABS: Levetiracetam 39.5 mcg/mL
[2019-07-15] MEDS: Azithromycin 500 mg/250 ml NS 500 MG/250 ML BAG IVPB SCH (11:52)
--- NOTE | 2019-07-15 13:34 | PN ---
Subjective Date of Service: 07/15/19 Interval History: HOSPITALIST PROGRESS NOTE Patient seen and examined at bedside. Care reviewed and d/w Roselyn Yu RN. She feels better today, has some more energy. Denies chest pain, cough has subsided. Family History: Unchanged from Admission Social History: Unchanged from Admission Past Medical History: Unchanged from Admission Objective Active Medications: Acetaminophen (Tylenol Tab*) 650 mg PO Q6H PRN PRN Reason: MILD PAIN or TEMP > 100.4 Last Admin: 07/14/19 15:40 Dose: 650 mg Apixaban (Eliquis*) 2.5 mg PO BID [facility] Last Admin: 07/15/19 10:22 Dose: 2.5 mg Atorvastatin Calcium (Lipitor*) 20 mg PO DAILY [facility] Last Admin: 07/15/19 10:22 Dose: 20 mg Cholecalciferol (Vitamin D Tab*) 1,000 units PO DAILY [facility] Last Admin: 07/15/19 10:21 Dose: 1,000 units Azithromycin (Zithromax 500 Mg/250 Ml) 500 mg in 250 mls @ 250 mls/hr IVPB Q24H [facility] Last Admin: 07/15/19 11:52 Dose: 250 mls/hr Ceftriaxone Sodium 1 gm/ (Sodium Chloride) 50 mls @ 100 mls/hr IVPB Q24H [facility] Last Admin: 07/15/19 10:22 Dose: 100 mls/hr Lamotrigine (Lamictal Xr (Nf)) 200 mg PO BID [facility] Last Admin: 07/15/19 10:21 Dose: 200 mg Levetiracetam (Keppra Tab*) 500 mg PO QAM [facility] Last Admin: 07/15/19 10:22 Dose: 500 mg Levetiracetam (Keppra Tab*) 1,000 mg PO QPM [facility] Last Admin: 07/14/19 17:44 Dose: 1,000 mg Metoprolol Succinate (Toprol Xl Tab*) 25 mg PO DAILY [facility] Last Admin: 07/15/19 10:21 Dose: 25 mg Oxybutynin Chloride (Ditropan Xl Tab*) 5 mg PO DAILY [facility] Last Admin: 07/15/19 10:22 Dose: 5 mg Timolol Maleate (Timoptic 0.5% Opth*) 1 drop BOTH EYES DAILY [facility] Last Admin: 07/15/19 10:21 Dose: 1 drop Vital Signs - 8 hr 07/15/19 07/15/19 07/15/19 07:15 07:30 08:00 Temperature 98.5 F Pulse Rate 59 Respiratory 16 16 Rate Blood Pressure 128/66 122/68 (mmHg) O2 Sat by Pulse 94 Oximetry 07/15/19 11:15 Temperature 97.9 F Pulse Rate 61 Respiratory 16 Rate Blood Pressure 140/77 (mmHg) O2 Sat by Pulse 100 Oximetry Oxygen Devices in Use Now: None Appearance: Pleasant elderly lady sitting up in a chair in NAD Eyes: No Scleral Icterus Ears/Nose/Mouth/Throat: Mucous Membranes Moist Neck: Trachea Midline Respiratory: Symmetrical Chest Expansion and Respiratory Effort, Clear to Auscultation Cardiovascular: RRR - Normal S1 and S2 Neurological: Alert and Oriented x 3, NL Muscle Strength and Tone Result Diagrams: 07/15/19 07:27 07/15/19 07:27 Microbiology and Other Data: Microbiology 07/13/19 12:10 Legionella Urinary Antigen - Final Urine Negative Legionella Antigen Streptococcus pneumoniae Ag Screen - Final Negative S. pneumo Antigen Assess/Plan/Problems-Billing Assessment: Mrs Cisneros is an 84yo F with PMH of CVA, Afib, seizures, HTN, osteoporosis, SDH, who presented to ED with c/o fatigue and episodes of fever for 2 weeks, found to have pneumonia. - Patient Problems (1) Community acquired bacterial pneumonia Comment: - PSI is 106 (mostly driven by her age), predicting mortality rate of 9.3%. - Legionella, pneumococcal Ags are negative, as well as Influenza. - Blood cultures show no growth so far. - Continue Ceftriaxone and Zithromax. (2) Physical deconditioning Comment: - Appears to be weaker than baseline. - PT evaluation. - Plan for [facility] on discharge. (3) Right arm pain Comment: - Xray negative for fracture. (4) Atrial fibrillation Comment: - In NSR. - Continue Metoprolol and Apixaban. (5) Seizure disorder Comment: - Continue Levotiracetam and Lamotrigine. (6) DVT prophylaxis Comment: - Apixaban. (7) Full code status Status and Disposition: Inpatient. Plan to d/c to [place] in AM.
[2019-07-16] MEDS: Cholecalciferol TAB* 1000 UNITS PO SCH (08:19)
[2019-07-16] MEDS: Apixaban* 2.5 MG TAB PO SCH (08:19)
[2019-07-16] MEDS: Oxybutynin XL TAB* 5 MG PO SCH (08:19)
[2019-07-16] MEDS: Atorvastatin* 20 MG TAB PO SCH (08:20)
[2019-07-16] MEDS: levETIRAcetam TAB* 500 MG PO SCH (08:20)
[2019-07-16] MEDS: Timolol 0.5% OPTH.SOL* BTL BOTH EYES SCH (08:20)
[2019-07-16] MEDS: LAMOTRIGINE 200 MG PO SCH (08:22)
[2019-07-16] MEDS: Acetaminophen TAB* 325 MG PO PRN (08:22)
[2019-07-16] MEDS: Metoprolol Succinate XL TAB* 25 MG PO SCH (08:41)
[2019-07-16] MEDS: cefTRIAXone(*) 1 GM in NS 0.9% 50 ML* 50 ML IVPB SCH (10:10)
--- NOTE | 2019-07-16 11:05 | DS ---
CC: Dr. Ramos; Dr. Yoder at [facility] * DISCHARGE SUMMARY: DATE OF ADMISSION: 07/13/19 DATE OF DISCHARGE: 07/16/19 PRIMARY CARE PROVIDER: Dr. Ramos. DISCHARGE DIAGNOSES: 1. Community-acquired pneumonia. 2. Right arm pain status post fall with no fracture. 3. Incidental finding of left thyroid hypoattenuation. SECONDARY DIAGNOSES: 1. Cerebrovascular accident with residual apraxia. 2. Atrial fibrillation. 3. Seizure disorder. 4. Hypertension. 5. Osteoporosis. 6. Subdural hematoma. MEDICATION LIST: 1. Acetaminophen 650 mg p.o. q.6 hours p.r.n. pain or fever. 2. Apixaban 2.5 mg p.o. b.i.d. 3. Atorvastatin 20 mg p.o. daily. 4. Cholecalciferol 1000 units p.o. daily. 5. Denosumab 60 mg subcutaneously every 6 months. 6. Lamotrigine ER 200 mg p.o. b.i.d. 7. Keppra 500 mg p.o. in the morning and 1000 mg p.o. in the evening. 8. Lidocaine patch topical daily. 9. Metoprolol succinate 25 mg p.o. daily. 10. Myrbetriq 50 mg p.o. daily. 11. Multivitamin 1 tablet p.o. daily. 12. Timolol 0.5% one drop to both eyes daily. New medications: 1. Azithromycin 250 mg p.o. daily for 3 more days. 2. Cefuroxime 250 mg p.o. b.i.d. for 5 more days. HOSPITAL COURSE: Mrs. Cisneros is an 84-year-old female with a past medical history as stated above who presented to the emergency room with complaints of fatigue and fevers for 2 weeks. She had started with cough and low-grade fevers 2 weeks ago, and on the day of admission, she went to the bathroom and had a mechanical fall with right arm trauma. For more details about her presentation, I refer you to her history and physical. In the emergency room, the patient was found to have a chest x-ray with right lung infiltrates suggestive of pneumonia. Although her white cell count was normal and her vital signs too, her pneumonia severity index was 106, mostly driven by her age, predicting mortality rate of 9.3%, and as the patient was very weak, she was admitted for further treatment and evaluation. Due to her fall, the patient had a CT of the brain without contrast that showed no calvarial fracture or acute intracranial hemorrhage, no acute fracture or dislocation of the cervical spine, chronic degenerative changes in the CT, but with no significant changes from the prior from August 2018. There was an incidental finding of a left lobe of the thyroid 1.5 cm hypoattenuation lesion that is unchanged since July 2018 and she could have an ultrasound of thyroid as outpatient. The patient had improvement of her respiratory symptoms. Blood cultures showed no growth. Legionella and pneumococcal antigens were negative as well as influenza A and B. The patient had no oxygen supplementation requirements. She complained of right arm pain after her fall and x-rays of the right upper extremity were negative for fracture. She was seen by Physical Therapy and felt to have skilled needs, and for that reason, she is being discharged to subacute rehab. Plan is for her to return to [place] after her rehabilitation process is completed. PHYSICAL EXAMINATION: Vital Signs: Temperature 98.5, heart rate is 61, respiratory rate is 15, oxygen saturation is 98% on room air, blood pressure is 117/69. General: The patient is a pleasant elderly lady, sitting up in bed, in no acute distress. CVS: Normal S1 and S2. Regular rate and rhythm. Chest: Breath sounds present bilaterally with no added sounds. Neuro: She is alert and oriented x3. Able to move all 4 extremities. DIET: Regular diet. ACTIVITIES: Continue PT/OT as tolerated. DISPOSITION: To [facility] for rehab. STATUS WHILE IN THE HOSPITAL: Inpatient. CONDITION AT THE TIME OF DISCHARGE: Fair. Please keep in mind this is a summarized version of this patient's hospital stay. If you need more information, please do not hesitate to call me at or please obtain the full medical records. TIME SPENT: Approximately 45 minutes was spent to complete this discharge. [id number]/[facility] #: [id number]
[2019-07-16] MEDS: Azithromycin 500 mg/250 ml NS 500 MG/250 ML BAG IVPB SCH (11:44)
[2019-07-16 12:00] VITALS: BP 113/63
== END 2019-07-16 14:35 | DRG 139 ==
LOC: ED 08:46 → MED 12:35 → OBSVTOIN 07-14 10:35
PROVIDERS: ADMIT Nurse Practitioner; ATTEND Internal Medicine
DX: J18.1 Lobar pneumonia, unspecified organism (principal); I48.91 Unspecified atrial fibrillation; I69.320 Aphasia following cerebral infarction; I10 Essential (primary) hypertension; M81.0 Age-related osteoporosis without current pathological fracture; R48.2 Apraxia; G40.909 Epilepsy, unspecified, not intractable, without status epilepticus; M79.601 Pain in right arm; E07.9 Disorder of thyroid, unspecified; H40.9 Unspecified glaucoma; I95.9 Hypotension, unspecified; W18.30XA Fall on same level, unspecified, initial encounter; Y92.099 Unspecified place in other non-institutional residence as the place of occurrence of the external cause; Z79.01 Long term (current) use of anticoagulants; Z79.899 Other long term (current) drug therapy
CPT/HCPCS: 36415; 70450; 71045; 72125; 80048; 80053; 80175; 80177; 83605; 83735; 84443; 85025; 85610; 86140; 87040; 87899; 93005; 96374; 99283; A9270-GY; G0378; J0456; J0696; J3480

== ENCOUNTER 2019-09-01 20:08 | Emergency (ER) | payer MEDICARE, OTHER ==
[2019-09-01] MEDS ORDERED: NS 0.9% 1000 ML** 1,000 ML IV ONE (20:22)
--- NOTE | 2019-09-01 20:23 | ED ---
Seizure - HPI Summary HPI Summary: Patient presents stating she had a possible seizure. Patient is poor historian due to history of speech apraxia, unable to provide specific details of why she thinks she had a seizure, but indicates pain and cramping in fourth and fifth digits of right hand. Denies any other symptoms including trauma, fall, headache, cough, sore throat, fever, CP, SOB, N/3/D, abdominal pain, change in urine, change in BM. Patient has history of CVA with residual right arm weakness, speech apraxia, seizure disorder, A. fib, subdural hematoma, HTN. Patient taking Eliquis and Keppra. - History Of Current Complaint Chief Complaint: EDSeizure Time Seen by Provider: 09/01/19 20:12 Hx Obtained From: Patient Location Of Seizure: Partial Extremities Aggravating Factor(s): Nothing Alleviating Factor(s): Nothing Associated Signs And Symptoms: Negative - Allergies/Home Medications Allergies/Adverse Reactions: Allergies Allergy/AdvReac Type Severity Reaction Status Date / Time No Known Allergies Allergy Verified 06/16/19 14:16 Home Medications: Home Medications Lamotrigine ER (NF) 200 mg PO BID 08/23/17 [History Confirmed 07/13/19] Multivit-Min/Iron/Folic/Lutein [Centrum Silver Women Tablet] 1 each PO DAILY [History Confirmed 07/13/19] Timolol 0.5% OPTH.MEERA* [Timoptic 0.5% Opth*] 1 drop BOTH EYES DAILY 08/23/17 [ History Confirmed 07/13/19] Metoprolol Succinate XL TAB* [Toprol XL TAB*] 25 mg PO DAILY #30 tab.xl [Rx Confirmed 07/13/19] Denosumab (OLD DO NOT USE) [Prolia] 60 mg SUBCUT .[id number] 07/30/18 [History Confirmed 07/13/19] Apixaban* [Eliquis*] 2.5 mg PO BID 06/16/19 [History Confirmed 07/13/19] Cholecalciferol TAB* [Vitamin D TAB*] 1,000 unit PO DAILY 06/16/19 [History Confirmed 07/13/19] Mirabegron (NF) [Myrbetriq (NF)] 50 mg PO DAILY 06/16/19 [History Confirmed 03/22] levETIRAcetam TAB* [Keppra TAB*] 500 mg PO QAM 06/16/19 [History Confirmed 07/13] Atorvastatin* [Lipitor 20 MG*] 20 mg PO DAILY 07/13/19 [History Confirmed ] Lidocaine PATCH 5%* [Lidoderm 5% Patch*] 4 % TRANSDERM DAILY 07/13/19 [History Confirmed 07/13/19] levETIRAcetam TAB* [Keppra TAB*] 1,000 mg PO QPM 07/13/19 [History Confirmed 03/22] Acetaminophen TAB* [Tylenol TAB*] 650 mg PO Q6H PRN tab 07/16/19 [Rx] Azithromycin TAB* [Zithromax TAB (Z-JEY) 250 mg #6 tabs] 250 mg PO DAILY #3 tab 07/16/19 [Rx] ceFUROXime 250 MG TAB [Ceftin TAB 250 MG(*)] 250 mg PO BID #10 tab 07/16/19 [Rx] Ondansetron ODT TAB* [Zofran 4 MG Odt TAB*] 4 mg PO Q8H PRN 4 Days #14 tab.odt 09/01/19 [Rx] PMH/Surg Hx/FS Hx/Imm Hx Endocrine/Hematology History: Reports: Hx Anticoagulant Therapy Denies: Hx Thyroid Disease Comment Only: Hx Diabetes - DIET CONTROLLED Cardiovascular History: Reports: Hx Atrial Fibrillation, 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, Hx Hypertension, Hx Syncope, Other Cardiovascular Problems/Disorders - Left atrial appendage clot Denies: Hx Pacemaker/ICD Respiratory History: Denies: Hx Asthma, Hx Chronic Obstructive Pulmonary Disease (COPD) GI History: Reports: Other GI Disorders - PT had GI consult, unknown results Denies: Hx Ulcer History: Reports: Other Problems/Disorders - uti Denies: Hx Dialysis, Hx Renal Disease Musculoskeletal History: Reports: Hx Arthritis, Hx Osteoporosis, Other Musculoskeletal History - PAIN IN RIGHT KNEE MORE THAN LEFT Denies: Hx Rheumatoid Arthritis Sensory History: Reports: Hx Cataracts, Hx Contacts or Glasses - reading, Hx Glaucoma - PREGLAUCOMA, CATARACTS Denies: Hx Hearing Aid Opthamlomology History: Reports: Hx Cataracts, Hx Contacts or Glasses - reading , Hx Glaucoma - PREGLAUCOMA, CATARACTS Neurological History: Reports: Hx Headaches, Hx Seizures, Hx Transient Ischemic Attacks (TIA) Psychiatric History: Denies: Hx Panic Disorder - Surgical History Surgery Procedure, Year, and Place: Knee arthroscopy 2005. tonsils as child Hx Anesthesia Reactions: No - Immunization History Date of Tetanus Vaccine: Unsure Date of Influenza Vaccine: unsure Infectious Disease History: No Infectious Disease History: Denies: Hx Hepatitis, Hx Human Immunodeficiency Virus (HIV), Traveled Outside the [place] in Last 30 Days - Family History Known Family History: Positive: Cardiac Disease, Hypertension - Social History Alcohol Use: None Hx Substance Use: No Substance Use Type: Reports: None Hx Tobacco Use: No Smoking Status (MU): Never Smoked Tobacco Have You Smoked in the Last Year: No Review of Systems Constitutional: Negative Eyes: Negative ENT: Negative Cardiovascular: Negative Respiratory: Negative Gastrointestinal: Negative Genitourinary: Negative Musculoskeletal: Negative Skin: Other Neurological/Mental Status: Negative Psychological: Normal All Other Systems Reviewed And Are Negative: Yes Physical Exam - Summary Physical Exam Summary: Normal neuro exam given patient history. Abdomen soft nontender. Lung sounds clear to auscultation. Triage Information Reviewed: Yes Vital Signs On Initial Exam: Initial Vitals Temp Pulse Resp BP Pulse Ox 99.2 F 67 18 206/101 97 09/01/19 20:13 09/01/19 20:13 09/01/19 20:13 09/01/19 20:13 09/01/19 20:13 Vital Signs Reviewed: Yes Appearance: Positive: Well-Appearing Skin: Positive: Warm Head/Face: Positive: Normal Head/Face Inspection Eyes: Positive: Normal Neck: Positive: Supple Respiratory/Lung Sounds: Positive: Clear to Auscultation Cardiovascular: Positive: Normal Abdomen Description: Positive: Nontender Musculoskeletal: Positive: Normal Neurological: Positive: Alert, Oriented to Person Place, Time, Finger to Nose, Facial Symmetry. Negative: Facial Droop, Slurred Speech, Pronator Drift Present AVPU Assessment: Alert - Kay Coma Scale Best Eye Response: 4 - Spontaneous Best Motor Response: 6 - Obeys Commands Best Verbal Response: 5 - Oriented Coma Scale Total: 15 Procedures - Sedation Patient Received Moderate/Deep Sedation with Procedure: No Diagnostics - Vital Signs Vital Signs Temp Pulse Resp BP Pulse Ox 09/01/19 20:13 99.2 F 67 18 206/101 97 - Laboratory Result Diagrams: 09/01/19 20:36 09/01/19 20:36 Lab Statement: Any lab studies that have been ordered have been reviewed, and results considered in the medical decision making process. Course/Dx - Course Course Of Treatment: Patient presents stating she had a possible seizure. Patient is poor historian due to history of speech apraxia, unable to provide specific details of why she thinks she had a seizure, but indicates pain and cramping in fourth and fifth digits of right hand. Denies any other symptoms including trauma, fall, headache, cough, sore throat, fever, CP, SOB, N/3/D, abdominal pain, change in urine, change in BM. Patient has history of CVA with residual right arm weakness, speech apraxia, seizure disorder, A. fib, subdural hematoma, HTN. Patient taking Eliquis and Keppra. During exam, patient coughed and now states she has had productive cough and cold symptoms for 2 weeks. Tested for covid 19 here in the ED. Initially elevated blood pressure which has decreased on its own. Vital signs otherwise within normal limits. Labs unremarkable. Chest x-ray unremarkable. EKG sinus bradycardia, heart rate of 57, similar to prior EKG. CT brain negative. No seizure activity observed here in the ED. Urine negative. Per discussion with nursing regulation supervisor Alan can take patient back despite Covid rule out. Flu negative. Patient was discharged and then had a fall while being transferred from bed into a wheelchair by ambulance staff. Patient complains of head and neck pain subsequent to fall. Alert and oriented. No evidence of wound. Repeat CT brain, and CT of C-spine, CT of thoracic spine negative for fracture. - Diagnoses Provider Diagnoses: Seizure disorder, Respiratory infection Discharge ED - Sign-Out/Discharge Documenting (check all that apply): Patient Departure - Discharge Plan Condition: Stable Disposition: ALF FACILITY Prescriptions: Ondansetron ODT TAB* [Zofran 4 MG Odt TAB*] 4 mg PO Q8H PRN 4 Days #14 tab.odt PRN Reason: Nausea Referrals: Patrica Ramos MD [Primary Care Provider] - Additional Instructions: Place patient in isolation until Covid 19 rule out or symptom free. Tylenol for pain subsequent to fall. Follow-up with primary care. Return to the ED for any new or worsening symptoms. - Billing Disposition and Condition Condition: STABLE Disposition: [facility] Facility
[2019-09-01 20:47] LABS: ABS Basophils 0.1 10^3/ul (0-0.2); ABS Eosinophils 0.1 10^3/ul (0-0.6); ABS Lymphocytes 1.5 10^3/ul (1.0-4.8); ABS Monocytes 0.8 10^3/ul (0-0.8); ABS Neutrophils 5.8 10^3/ul (1.5-7.7); Eosinophil % 1.3 %; Hematocrit 40 % (35-47); Hemoglobin 13.4 g/dL (12.0-16.0); Lymphocyte % 18.5 %; Mean Corpuscular HGB Conc 34 g/dL (31-36); Mean Corpuscular Hemoglobin 32 pg (27-31); Mean Corpuscular Volume 94 fL (80-97); Mean Platelet Volume 8.4 fL (7.4-10.4); Platelet Count 257 10^3/uL (150-450); Red Blood Count 4.23 10^6 /uL (3.70-4.87); Red Cell Distribution Width 15 % (10-15); White Blood Count 8.3 10^3/uL (3.5-10.8)
[2019-09-01 20:53] LABS: Urine Appearance Clear; Urine Bilirubin Negative (Negative); Urine Blood Negative (Negative); Urine Color Colorless; Urine Glucose Negative (Negative); Urine Ketones Negative (Negative); Urine Nitrite Negative (Negative); Urine Protein Negative (Negative); Urine Specific Gravity 1.002 (1.010-1.030); Urine Urobilinogen Negative (Negative)
--- OUTSIDE RECORDS SUMMARY | 2019-09-01 21:02 | XMS REPORT ---
:1935 Author Organization [facility] Care Team Providers Name Role Phone Unavailable Unavailable Unavailable Problems Condition Condition Condition Status Onset Resolution Last Treating Comments Name Details Category Date Date Treatment Clinician Date Pain in Pain in Diagnosis Active Kayla unspecified unspecified 2-12 Wendela knee knee Tremor, Tremor, Diagnosis Active Kayla unspecified unspecified 2-12 Wendela Allergies, Adverse Reactions, Alerts Allergy Allergy Status Severity Reaction(s) Onset Inactive Treating Comments Name Type Date Date Clinician Uncoded Unknown Active Unknown Reaction 2018-08 Interface free-text Unknown -04 allergy Medications Ordered Filled Start Stop Current Ordering Indication Dosage Frequency Signature Comments Components Medication Medication Date Date Medication? Clinician (SIG) Name Name No Known No Known No None None None Medications Medications For This For This Patient Patient Procedures This patient has no known procedures. Results This patient has no known results.
--- OUTSIDE RECORDS SUMMARY | 2019-09-01 21:02 | XMS REPORT ---
:1935 Author Organization [facility] Care Team Providers Name Role Phone Unavailable Unavailable Unavailable Problems Condition Condition Condition Status Onset Resolution Last Treating Comments Name Details Category Date Date Treatment Clinician Date Pain in Pain in Diagnosis Active Kayla unspecified unspecified 2-12 Wendela knee knee [id number] Tremor, Tremor, Diagnosis Active Kayla unspecified unspecified 2-12 Wendela [id number] Allergies, Adverse Reactions, Alerts Allergy Allergy Status Severity Reaction(s) Onset Inactive Treating Comments Name Type Date Date Clinician Uncoded Unknown Active Unknown Reaction 2018-08 Interface free-text -04 allergy Medications Ordered Filled Start Stop Current Ordering Indication Dosage Frequency Signature Comments Components Medication Medication Date Date Medication? Clinician (SIG) Name Name No Known No Known No None None None Medications Medications For This For This Patient Patient Procedures This patient has no known procedures. Results This patient has no known results.
--- OUTSIDE RECORDS SUMMARY | 2019-09-01 21:02 | XMS REPORT | Continuity of Care Document ---
:1935 External Reference #:[id number] Author Name Zhanna Yusuf MD (transmitted by agent of provider Catherine Mercedes) Address [address] [place] [address] Care Team Providers Name Role Phone Patrica Ramos MD - Family Care Team Information Field Clerk Medicine Kaylyn Scott MD - Neurology Care Team Information Field Clerk [phone] Problems Active Problems Provider Date Atrial fibrillation Rene Covarrubias M.D., [facility], Onset: 04/09/2014 FASTN Partial seizure Yu Stafford M.D. Onset: 11/18/2014 Epilepsia partialis continua Yu Stafford M.D. Onset: 11/18/2014 Unsteady gait Yu Stafford M.D. Onset: 11/18/2014 Aphasia Yu Stafford M.D. 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 Paroxysmal atrial fibrillation Rene Covarrubias M.D., [facility], Onset: 2015 FASNC Carpal tunnel syndrome of right wrist Kaylyn Scott MD Onset: 12/10/2016 Disorder of pericardium Rene Covarrubias M.D., [facility], Onset: 05/01/2017 FASNC Aortic valve disorder Rene Covarrubias M.D., [facility], Onset: 06/19/2017 [facility] Electrocardiogram abnormal Rene Covarrubias M.D., [facility], Onset: 06/19/2017 FASTN Ascending aorta dilatation Rene Covarrubias M.D., [facility], Onset: 09/10/2018 [facility] Social History Type Date Description Comments Sex Unknown ETOH Use Never used alcohol Tobacco Use Start: Unknown Patient has never smoked Smoking Status Reviewed: 04/01/19 Patient has never smoked Exercise Exercises regularly walking around Type/Frequency hallway during winter, plan on joining exercise class at [place]. Allergies, Adverse Reactions, Alerts Description No Known Drug Allergies Medications Active Medications SIG Qnty Indications Ordering Date Provider Levetiracetam ER take one tab by 360tabs R25.1 Darrius Mckeon 04/01/2019 500mg mouth in the Deny Mercado Tablets ER 24HR morning and two tabs by mouth at bedtime. Eliquis 1 by mouth twice 60tabs I48.91 Darrius Mckeon 08/18/2018 2.5mg Tablets a day Deny Mercado Lamotrigine ER take 1 by mouth 180tabs Darrius Mckeon 05/01/2017 200mg twice a day Deny Mercado Tablets ER 24HR Multivitamins 1 by mouth every Unknown Capsules day Prolia 1 injection 2 Unknown 60mg/ml Solution times a year first injection on 12/27/15, restarted 06/16/18 Atorvastatin Calcium 1 by mouth every Unknown day 20mg Tablets Acetaminophen 2 every 6 hours Unknown 500mg as needed Tablets Lidocaine apply to right Unknown 5% Patches leg or lower back for 8 hours as needed History Medications Levetiracetam take 1 tablet 90tabs G40.101 Darrius Mercado, 04/01/2019 - 500mg by mouth in the M.D. 04/01/2019 Tablets morning, and two tablets at night. Levetiracetam ER take one tab by 90tabs G40.101 Darrius Mercado, 2018 - mouth in the M.D. 04/01/2019 500mg Tablets ER morning and two 24HR tabs by mouth at night. Levetiracetam ER Take 1 tab by 90tabs G40.101 Darrius Barrientosffney, 2018 - mouth every M.D. 04/01/2019 750mg Tablets ER morning 2 at 24HR night Levetiracetam take 3 tablets 90tabs G40.101 Tommy Guo, 02/08/2019 - 500mg at bedtime M.D. 02/10/2019 Tablets (1500mg) Levetiracetam ER Take 3 at 90tabs G40.101 Tommy Guo, 02/07/2019 - bedtime M.D. 02/08/2019 500mg Tablets ER (1500mg) 24HR Levetiracetam 1 by mouth in 30tabs Tommy Guo, 02/07/2019 - 750mg am M.D. 02/10/2019 Tablets Medications Administered in Office Medication SIG Qnty Indications Ordering Provider Date Inj, Regadenoson, 0.1 MG Rene Covarrubias M.D., 09/05/2018 [facility] Technetium TC 99M Rene Covarrubias M.D., 09/05/2018 Tetrofosmin, Per Unit Dose BAKARI NORIEGA Up To 40 Millicuries Injection Depomedrol 40MG Leif Keys MD 04/03/2018 Injection Depomedrol 40MG ERICK Acuña 09/17/2017 Injection Technetium TC 99M Rene Covarrubias M.D., 12/05/2012 Tetrofosmin, Per Unit Dose BAKARI NORIEGA Up To 40 Millicuries Injection Immunizations Description No Information Available Vital Signs Date Vital Result Comment 04/01/2019 2:14pm Height 62 inches 5'2" Weight 117.00 lb Heart Rate 62 /min BP Systolic 124 mmHg BP Diastolic 68 mmHg BMI (Body Mass Index) 21.4 kg/m2 11/12/2018 2:43pm Height 62 inches 5'2" Weight 114.00 lb Heart Rate 62 /min BP Systolic 122 mmHg BP Diastolic 68 mmHg BMI (Body Mass Index) 20.8 kg/m2 Results Test Acquired Date Facility Test Result H/L Range Note CBC Auto 03/03/2019 [facility] White Blood 6.0 10^3/uL Normal 3.5-10.8 [address] [place] [address] [phone] Red Blood Count 4.23 10^6/uL Normal 3.70-4.87 Hemoglobin 13.0 g/dL Normal 12.0-16.0 Hematocrit 40 % Normal 35-47 Mean Corpuscular Volume 95 fL Normal 80-97 Mean Corpuscular Hemoglobin 31 pg Normal 27-31 Mean Corpuscular HGB Conc 33 g/dL Normal 31-36 Red Cell Distribution Width 14 % Normal 10-15 Platelet Count 222 10^3/uL Normal 150-450 Mean Platelet Volume 9.9 fL Normal 7.4-10.4 Abs Neutrophils 3.9 10^3/uL Normal 1.5-7.7 Abs Lymphocytes 1.4 10^3/uL Normal 1.0-4.8 Abs Monocytes 0.6 10^3/uL Normal 0-0.8 Abs Eosinophils 0.2 10^3/uL Normal 0-0.6 Abs Basophils 0.0 10^3/uL Normal 0-0.2 Abs Nucleated RBC 0.0 10^3/uL Granulocyte % 64.3 % Lymphocyte % 23.5 % Monocyte % 9.2 % Eosinophil % 2.6 % Basophil % 0.4 % Nucleated Red Blood Cells % 0.0 Comp Metabolic 03/03/2019 [facility] Sodium 141 mmol/L Normal 135-[address] [place] [address] [phone] Potassium 4.2 mmol/L Normal 3.5-5.0 Chloride 108 mmol/L Normal 101-111 Co2 Carbon Dioxide 26 mmol/L Normal 22-32 Anion Gap 7 mmol/L Normal 2-11 Glucose 101 mg/dL High 70-100 Blood Urea Nitrogen 18 mg/dL Normal 6-24 Creatinine 0.78 mg/dL Normal 0.51-0.95 BUN/Creatinine Ratio 23.1 High 8-20 Calcium 9.8 mg/dL Normal 8.6-10.3 Total Protein 6.2 g/dL Low 6.4-8.9 Albumin 4.1 g/dL Normal 3.2-5.2 Globulin 2.1 g/dL Normal 2-4 Albumin/Globulin Ratio 2.0 Normal 1-3 Total Bilirubin 0.70 mg/dL Normal 0.2-1.0 Alkaline Phosphatase 101 U/L Normal 34-104 Alt 24 U/L Normal 7-52 Ast 31 U/L Normal 13-39 Egfr Non- 70.0 >60 Egfr 84.7 >60 2 Laboratory test 03/03/2019 [facility] Levetiracetam 47.8 Abnormal [address] (Keppra) g/[place] [address] [phone] Lamotrigine (Lamictal) 10.0 g/mL 2.5 - 15.0 4 1 [id number] 2 Because ethnic data is not always readily available, this report includes an eGFR for both -Americans and non- Americans. The National Kidney Disease Education Program (NKDEP) does not endorse the use of the MDRD equation for patients that are not between the ages of 18 and 70, are , have extremes of body size, muscle mass, or nutritional status, or are non- or non-. According to the National Kidney Foundation, irrespective of diagnosis, the stage of the disease is based on the level of kidney function: Stage Description GFR(mL/min/1.73 m(2)) 1 Kidney damage with normal or decreased GFR 90 2 Kidney damage with mild decrease in GFR 60-89 3 Moderate decrease in GFR 30-59 4 Severe decrease in GFR 15-29 5 Kidney failure <15 (or dialysis) 3 REFERENCE VALUE 12.0 - 46.0 ADDITIONAL INFORMATION This test was developed and its performance characteristics determined by [facility] in a manner consistent with CLIA requirements. This test has not been cleared or approved by the U.S. Food and Drug Administration. Test Performed by: [facility] - [facility] [address] [place] [address] Application Project Leader: Brandt Shafer M.D. Ph.D.; CLIA# [id number] 4 ADDITIONAL INFORMATION This test was developed and its performance characteristics determined by [facility] in a manner consistent with CLIA requirements. This test has not been cleared or approved by the U.S. Food and Drug Administration. Test Performed by: [facility] - [facility] [address] [place] [address] Application Project Leader: Brandt Shafer M.D. Ph.D.; CLIA# [id number] Procedures Description No Information Available Medical Devices Description No Information Available Encounters Type Date Location Provider Dx Diagnosis Office Visit 07/21/2019 [place] Anthony Yusuf MD R54 Age-related physical 9:15a debility J18.9 Pneumonia, unspecified organism I69.351 Hemiplga following cerebral infrc aff right dominant side G40.901 Epilepsy, unsp, not intractable, with status epilepticus M25.569 Pain in unspecified knee I69.322 Dysarthria following cerebral infarction Office Visit 07/16/2019 11:22a [place] Della Shanks18.9 Pneumonia, Assockaia M.D. unspecified Hospitalists organism M79.601 Pain in right arm E04.1 Nontoxic single thyroid nodule I63.9 Cerebral infarction, unspecified I48.91 Unspecified atrial fibrillation R56.9 Unspecified convulsions I10 Essential (primary) hypertension M19.90 Unspecified osteoarthritis, unspecified site I62.00 Nontraumatic subdural hemorrhage, unspecified Office Visit 07/16/2019 9:30a [place] Anthony Yusuf, J18.Vandana Hoffman MD unspecified organism I69.351 Hemiplga following cerebral infrc aff right dominant side I69.322 Dysarthria following cerebral infarction G40.901 Epilepsy, unsp, not intractable, with status epilepticus M25.569 Pain in unspecified knee R54 Age-related physical debility Office Visit 07/15/2019 11:21a [facility] Lia Shanks18.9 Pneumonia, Asskaia burt M.D. unspecified Hospitalists organism R53.81 Other malaise I48.91 Unspecified atrial fibrillation R56.9 Unspecified convulsions Office Visit 07/14/2019 11:21a [facility] Lia Shanks18.9 Pneumonia, Assockaia M.D. unspecified Hospitalists organism R53.81 Other malaise I48.91 Unspecified atrial fibrillation R56.9 Unspecified convulsions Office Visit 07/13/2019 [facility] Karon J18.9 Pneumonia, 11:20a Assoc,kaia Cheng, JAKE unspecified Hospitalists organism I48.91 Unspecified atrial fibrillation I10 Essential (primary) hypertension R56.9 Unspecified convulsions H40.9 Unspecified glaucoma M54.9 Dorsalgia, unspecified W19.xxxA Unspecified fall, initial encounter Z86.73 Prsnl hx of TIA (TIA), and cereb infrc w/o resid deficits Office Visit 04/01/2019 2:00p [place] [facility] Humza Jorden, R25.1 Tremor , [facility] FRONT DESK ADMIN unspecified Assessments Date Code Description Provider 07/27/2019 R54 Age-related physical debility Zhanna Yusuf MD 07/27/2019 J18.9 Pneumonia, unspecified organism Zhanna Yusuf MD 07/27/2019 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 07/27/2019 G40.901 Epilepsy, unspecified, not intractable, with Zhanna Yusuf MD status epilepticus 07/27/2019 I69.322 Dysarthria following cerebral infarction Zhanna Yusuf MD 07/27/2019 M25.569 Pain in unspecified knee Zhanna Yusuf MD 07/21/2019 R54 Age-related physical debility Zhanna Yusuf MD 07/21/2019 J18.9 Pneumonia, unspecified organism Zhanna Yusuf MD 07/21/2019 I69.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 07/16/2019 G40.901 Epilepsy, unspecified, not intractable, with Zhanna Yusuf MD status epilepticus 07/16/2019 E04.1 Nontoxic single thyroid nodule Lia Colvin M.D. 07/16/2019 M25.569 Pain in unspecified knee Zhanna Yusuf MD 07/16/2019 R54 Age-related physical debility Zhanna Yusuf MD 07/16/2019 I63.9 Cerebral infarction, unspecified Lia Colvin M.D. 07/16/2019 I48.91 Unspecified atrial fibrillation Lia Colvin M.D. 07/16/2019 R56.9 Unspecified convulsions Lia Colvin M.D. 07/16/2019 I10 Essential (primary) hypertension Lia Colvin M.D. 07/16/2019 M19.90 Unspecified osteoarthritis, unspecified site Lia Colvin M.D. 07/16/2019 I62.00 Nontraumatic subdural hemorrhage, Lia Colvin M.D. unspecified 07/15/2019 J18.9 Pneumonia, unspecified organism Lia Colvin M.D. 07/15/2019 R53.81 Other malaise Lia Colvin M.D. 07/15/2019 I48.91 Unspecified atrial fibrillation Lia Colvin M.D. 07/15/2019 R56.9 Unspecified convulsions Lia Colvin M.D. 07/14/2019 J18.9 Pneumonia, unspecified organism Lia Colvin M.D. 07/14/2019 R53.81 Other malaise Lia Colvin M.D. 07/14/2019 I48.91 Unspecified atrial fibrillation Lia Colvin M.D. 07/14/2019 R56.9 Unspecified convulsions Lia Colvin M.D. 07/13/2019 J18.9 Pneumonia, unspecified organism Karon Cheng, FRONT DESK ADMIN 07/13/2019 I48.91 Unspecified atrial fibrillation Karon Cheng, FRONT DESK ADMIN 07/13/2019 I10 Essential (primary) hypertension Karon Cheng, FRONT DESK ADMIN 07/13/2019 R56.9 Unspecified convulsions Karon Cheng, FRONT DESK ADMIN 07/13/2019 H40.9 Unspecified glaucoma Karon Cheng, FRONT DESK ADMIN 07/13/2019 M54.9 Dorsalgia, unspecified Karon Cheng, FRONT DESK ADMIN 07/13/2019 W19.xxxA Unspecified fall, initial encounter Karon Cheng, FRONT DESK ADMIN 07/13/2019 Z86.73 Personal history of transient ischemic Karon Cheng, FRONT DESK ADMIN attack (TIA), and cerebral infarction without residual deficits 04/01/2019 R25.1 Tremor, unspecified Humza Leonardo NP Plan of Treatment Future Appointment(s):09/04/2019 3:30 pm - Traveling ECHO 1 at [facility]09/15/2019 2:30 pm - Rene Covarrubias M.D., FAC, FASTN at [facility]11/11/2019 2:45 pm - Darrius Mercado M.D. at [facility]07/27/2019 - Zhanna Yusuf, MDR54 Age-related physical debilityComments:Therapies will address her overall conditioning.J18.9 Pneumonia, unspecified organismComments:Resolved.I69.351 Hemiplegia and hemiparesis following cerebral infarction affecting right dominant sideComments: Stable.G40.901 Epilepsy, unspecified, not intractable, with status epilepticusComments:No seizures during this stay.I69.322 Dysarthria following cerebral infarctionComments:This appears stable. She is able to make her needs known with some effort.M25.569 Pain in unspecified kneeComments:She is receiving routine treatment of knee pain. Her ambulation is quite good without complaint of pain. Functional Status Description No Information Available Mental Status Description No Information Available Referrals Refer to Reason for Referral Status Appt Date Closed
--- OUTSIDE RECORDS SUMMARY | 2019-09-01 21:02 | XMS REPORT | Continuity of Care Document ---
:1935 External Reference #:[id number] Author Name Zhanna Yusuf MD (transmitted by agent of provider Catherine Mercedes) Address [address] [address] Care Team Providers Name Role Phone Patrica Ramos MD - Family Care Team Information Rn Transplant Medicine Kaylyn Scott MD - Neurology Care Team Information Rn Transplant [phone] Problems Active Problems Provider Date Atrial fibrillation Rene Covarrubias M.D., [facility], Onset: 04/09/2014 FASKY Partial seizure Yu Stafford M.D. Onset: 11/18/2014 [...] accident Paroxysmal atrial fibrillation Rene Covarrubias M.D., [facility], Onset: 2015 FASNC Carpal tunnel syndrome of right wrist Kaylyn Scott MD Onset: 12/10/2016 Disorder of pericardium Rene Covarrubias M.D., [facility], Onset: 05/01/2017 FASNC Aortic valve disorder Rene Covarrubias M.D., [facility], Onset: 06/19/2017 [facility] Electrocardiogram abnormal Rene Covarrubias M.D., [facility], Onset: 06/19/2017 [facility] Ascending aorta dilatation Rene Covarrubias M.D., [facility], Onset: 09/10/2018 [facility] Social History Type Date Description Comments Sex Unknown ETOH Use Never used alcohol Tobacco Use Start: Unknown Patient has never smoked Smoking Status Reviewed: 04/01/19 Patient has never smoked Exercise Exercises regularly walking around Type/Frequency hallway during winter, plan on joining exercise class at [place]. Allergies, Adverse Reactions, Alerts Description No Known [...] 0.1 MG Rene Covarrubias M.D., 09/05/2018 [facility] Technetium TC 99M Rene Covarrubias [...] Result H/L Range Note CBC Auto 03/03/2019 [facility] White Blood 6.0 10^3/uL Normal 3.5-10.8 [address] [place] [address] [phone] Red Blood Count 4.23 10^6/uL Normal 3.70-4.87 [...] Blood Cells % 0.0 Comp Metabolic 03/03/2019 [facility] Sodium 141 mmol/L Normal 135-[address] [place] [address] [phone] Potassium 4.2 mmol/L Normal 3.5-5.0 Chloride 108 [...] Egfr 84.7 >60 2 Laboratory test 03/03/2019 [facility] Levetiracetam 47.8 Abnormal [address] (Keppra) g/[place] [address] [phone] Lamotrigine (Lamictal) 10.0 g/mL 2.5 - 15.0 4 1 [id number] 2 Because ethnic data is not always [...] developed and its performance characteristics determined by [facility] in a manner consistent with CLIA requirements. This test has not been cleared or approved by the U.S. Food and Drug Administration. Test Performed by: [facility] - [facility] [address] [place] [address] Public Relations Manager: Brandt Shafer M.D. Ph.D.; CLIA# [id number] 4 ADDITIONAL INFORMATION This test was developed and its performance characteristics determined by [facility] in a manner consistent with CLIA requirements. This test has not been cleared or approved by the U.S. Food and Drug Administration. Test Performed by: [facility] [address] [place] [address] Public Relations Manager: Brandt Shafer M.D. Ph.D.; CLIA# [id number] Procedures Description No Information Available Medical Devices Description No Information Available Encounters Type Date Location Provider Dx Diagnosis Office Visit 07/27/2019 Carol Yusuf MD R54 Age-related physical 10:30a debility J18.9 Pneumonia, unspecified organism I69.351 Hemiplga following cerebral infrc aff right dominant side G40.901 Epilepsy, unsp, not intractable, with status epilepticus I69.322 Dysarthria following cerebral infarction M25.569 Pain in unspecified knee Office Visit 07/21/2019 9:15a Carol Yusuf, R54 Age- related physical MD debility J18.9 Pneumonia, unspecified organism I69.351 Hemiplga following cerebral infrc aff right dominant side G40.901 Epilepsy, unsp, not intractable, with status epilepticus M25.569 Pain in unspecified knee I69.322 Dysarthria following cerebral infarction Office Visit 07/16/2019 11:22a [place] Della Shanks18.9 Pneumonia, Assoc,kaia Colvin M.D. unspecified Hospitalists organism M79.601 Pain in right arm E04.1 Nontoxic single thyroid nodule I63.9 Cerebral infarction, unspecified I48.91 Unspecified atrial fibrillation R56.9 Unspecified convulsions I10 Essential (primary) hypertension M19.90 Unspecified osteoarthritis, unspecified site I62.00 Nontraumatic subdural hemorrhage, unspecified Office Visit 07/16/2019 9:30a Dimitris Rosario18.Vandana Pneumonia, MD unspecified organism I69.351 Hemiplga following cerebral infrc aff right dominant side I69.322 Dysarthria following cerebral infarction G40.901 Epilepsy, unsp, not intractable, with status epilepticus M25.569 Pain in unspecified knee R54 Age-related physical debility [facility]neumonia, Assoc,kaia Colvin M.D. unspecified Hospitalists organism R53.81 Other malaise I48.91 Unspecified atrial fibrillation R56.9 Unspecified convulsions Office Visit 07/14/2019 11:[facility] J[facility].9 Pneumonia, Assoc,kaia Colvin M.D. unspecified Hospitalists organism R53.81 Other malaise I48.91 Unspecified atrial fibrillation R56.9 Unspecified convulsions Office Visit 07/13/2019 [facility] Karon J18.9 Pneumonia, 11:20a Assoc,kaia Cheng, APPRENTICE ARCHITECT unspecified Hospitalists organism I48.91 Unspecified atrial fibrillation I10 Essential (primary) hypertension R56.9 Unspecified convulsions H40.9 Unspecified glaucoma M54.9 Dorsalgia, unspecified W19.xxxA Unspecified fall, initial encounter Z86.73 Prsnl hx of TIA (TIA), and cereb infrc w/o resid deficits Office Visit 04/01/2019 2:00p [facility] Humzaparag Leonardo, R25.1 Tremor , [facility] APPRENTICE ARCHITECT unspecified Assessments Date Code Description Provider 07/27/2019 [...] 07/13/2019 J18.9 Pneumonia, unspecified organism Karon Cheng, APPRENTICE ARCHITECT 07/13/2019 I48.91 Unspecified atrial fibrillation Karon Cheng, APPRENTICE ARCHITECT 07/13/2019 I10 Essential (primary) hypertension Karon Cheng, APPRENTICE ARCHITECT 07/13/2019 R56.9 Unspecified convulsions Karon Cheng, APPRENTICE ARCHITECT 07/13/2019 H40.9 Unspecified glaucoma Karon Cheng, APPRENTICE ARCHITECT 07/13/2019 M54.9 Dorsalgia, unspecified Karonjames Cheng, APPRENTICE ARCHITECT 07/13/2019 W19.xxxA Unspecified fall, initial encounter Karon Cheng, APPRENTICE ARCHITECT 07/13/2019 Z86.73 Personal history of transient ischemic Karon Skylar, APPRENTICE ARCHITECT attack (TIA), and cerebral infarction without residual deficits 04/01/2019 R25.1 Tremor, unspecified Humza JAKE Leonardo Plan of Treatment Future Appointment(s):09/04/2019 3:30 pm - Traveling ECHO 1 at [facility]09/15/2019 2:30 pm - Rene Covarrubias M.D., [facility], [facility] at [facility]11/11/2019 2:45 pm - Darrius Mrecado M.D. at [facility]07/27/2019 - Zhanna Yusuf, MDR54 Age-related physical [...]
--- OUTSIDE RECORDS SUMMARY | 2019-09-01 21:02 | XMS REPORT | Continuity of Care Document ---
:1935 External Reference #:[id number] Author Name Zhanna Yusuf MD (transmitted by agent of provider Catherine Mercedes) Address [address] [place] [address] Care Team Providers Name Role Phone Patrica Ramos MD - Family Care Team Information Lay Out Inspector Medicine Kaylyn Scott MD - Neurology Care Team Information Lay Out Inspector [phone] Problems Active Problems Provider Date Atrial fibrillation Rene Covarrubias M.D., [facility], Onset: 04/09/2014 [facility] Partial seizure Yu Stafford M.D. Onset: 11/18/2014 [...] Paroxysmal atrial fibrillation Rene Covarrubias M.D., [facility], Onset: 2015 [facility] Carpal tunnel syndrome of right wrist Kaylyn Scott MD Onset: 12/10/2016 Disorder of pericardium Rene Covarrubias M.D., [facility], Onset: 05/01/2017 [facility] Aortic valve disorder Rene Covarrubias M.D., [facility], Onset: 06/19/2017 [facility] Electrocardiogram abnormal Rene Covarrubias M.D., [facility], Onset: 06/19/2017 [facility] Ascending aorta dilatation Rene Covarrubias M.D., [facility], Onset: 09/10/2018 [facility] Social History Type Date Description Comments Sex Unknown ETOH Use Never used alcohol Tobacco Use Start: Unknown Patient has never smoked Smoking Status Reviewed: 04/01/19 Patient has never smoked Exercise Exercises regularly walking around Type/Frequency hallway during winter, plan on joining exercise class at [employer] [address]. Allergies, Adverse Reactions, Alerts Description No Known [...] needed History Medications Levetiracetam take 1 tablet by 90tabs G40.101 Darrius Mckeon 04/01/2019 - 500mg mouth in the Deny Mercado 04/01/2019 Tablets morning, and two tablets at night. Levetiracetam ER take one tab by 90tabs G40.101 Darrius SMini 04/01/2019 - 500mg mouth in the Deny Mercado 04/01/2019 Tablets ER 24HR morning and two tabs by mouth at night. Medications Administered in Office Medication SIG Qnty Indications Ordering Provider Date Inj, Regadenoson, 0.1 MG Rene Covarrubias M.D., 09/05/2018 Injection [facility], [facility] Technetium TC 99M Rene Covarrubias M.D., 09/05/2018 Tetrofosmin, Per Unit Dose [facility] Up To 40 Millicuries Injection Depomedrol 40MG Leif Keys MD 04/03/2018 Injection Depomedrol 40MG ERICK Acuña 09/17/2017 Injection Technetium TC 99M Rene Covarrubias M.D., 12/05/2012 Tetrofosmin, Per Unit Dose [facility] Up To 40 Millicuries Injection Immunizations Description [...] Result H/L Range Note CBC Auto 03/03/2019 [facility] White Blood 6.0 10^3/uL Normal 3.5-10.[address] [place] [address] [phone] Red Blood Count 4.23 10^6/uL Normal 3.70-4.87 [...] Blood Cells % 0.0 Comp Metabolic 03/03/2019 [facility] Sodium 141 mmol/L Normal 135-[address] [place] [address] [phone] Potassium 4.2 mmol/L Normal 3.5-5.0 Chloride 108 [...] Egfr 84.7 >60 2 Laboratory test 03/03/2019 [facility] Levetiracetam 47.8 Abnormal [address] (Keppra) g/[place] [address] [phone] Lamotrigine (Lamictal) 10.0 g/mL 2.5 - 15.0 4 1 [id number] 2 Because ethnic data is not always [...] developed and its performance characteristics determined by [facility] in a manner consistent with CLIA requirements. This test has not been cleared or approved by the U.S. Food and Drug Administration. Test Performed by: [facility] [place] [address] Household Coordinator: Brandt Shafer M.D. Ph.D.; CLIA# [id number] ADDITIONAL INFORMATION This test was developed and its performance characteristics determined by [facility] in a manner consistent with CLIA requirements. This test has not been cleared or approved by the U.S. Food and Drug Administration. Test Performed by: [facility] [place] [address] Household Coordinator: Brandt Shafer M.D. 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 unspecified Hospitalists organism R53.81 Other malaise I48.91 Unspecified atrial fibrillation R56.9 Unspecified convulsions Office Visit 07/14/2019 11:21[facility] J[facility].9 Pneumonia, Assoc,kaia Colvin M.D. unspecified Hospitalists organism R53.81 Other malaise I48.91 Unspecified atrial fibrillation R56.9 Unspecified convulsions Office Visit 07/13/2019 [facility] Karon J18.9 Pneumonia, 11:20a Assoc,kaia Cheng NP unspecified Hospitalists organism I48.91 Unspecified atrial fibrillation I10 Essential (primary) hypertension R56.9 Unspecified convulsions H40.9 Unspecified glaucoma M54.9 Dorsalgia, unspecified W19.xxxA Unspecified fall, initial encounter Z86.73 Prsnl hx of TIA (TIA), and cereb infrc w/o resid deficits Office Visit 04/01/2019 2:00p [facility] Humza Jorden, R25.1 Tremor , [facility] [employer] unspecified Assessments Date Code Description Provider 08/14/2019 J18.9 Pneumonia, unspecified organism Zhanna Yusuf MD 08/14/2019 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 07/14/2019 R53.81 Other malleonela Colvin M.D. 07/14/2019 I48.91 Unspecified atrial fibrillation Lia Colvin M.D. 07/14/2019 R56.9 Unspecified convulsions Lia Colvin M.D. 07/13/2019 J18.9 Pneumonia, unspecified organism Karon Cheng, [employer] 07/13/2019 I48.91 Unspecified atrial fibrillation Karon Cheng, [employer] 07/13/2019 I10 Essential (primary) hypertension Karon Cheng, [employer] 07/13/2019 R56.9 Unspecified convulsions Karon Cheng, [employer] 07/13/2019 H40.9 Unspecified glaucoma Karon Cheng, [employer] 07/13/2019 M54.9 Dorsalgia, unspecified Karon Cheng, [employer] 07/13/2019 W19.xxxA Unspecified fall, initial encounter Karon Cheng, [employer] 07/13/2019 Z86.73 Personal history of transient ischemic Karon Cheng, [employer] attack (TIA), and cerebral infarction without residual deficits 04/01/2019 R25.1 Tremor, unspecified Humza JAKE Leonardo Plan of Treatment Future Appointment(s):09/04/2019 3:30 pm - Traveling ECHO 1 at [facility]09/15/2019 2:30 pm - Rene Covarrubias M.D., [facility] at [facility]11/11/2019 2:45 pm - Darrius Mercado M.D. at [facility]08/14/2019 - Zhanna Yusuf MDJ18.9 Pneumonia, unspecified bpzkhloeJ05.351 Hemiplegia and hemiparesis following cerebral infarction affecting right dominant sideG40.901 Epilepsy, unspecified, not intractable, with status ukrnhwqzsrtF92.322 Dysarthria following cerebral jdpzjzgtfeX79.569 Pain in unspecified kneeR54 Age-related physical debility Functional Status Description No Information Available Mental Status Description No Information Available Referrals Refer to Reason for Referral Status Appt Date Closed
--- OUTSIDE RECORDS SUMMARY | 2019-09-01 21:02 | XMS REPORT ---
:1935 Author Organization [facility] Care Team Providers Name Role Phone Unavailable Unavailable Unavailable Problems Condition Condition Condition Status Onset Resolution Last Treating Comments Name Details Category Date Date Treatment Clinician Date Pain in Pain in Diagnosis Active Kayla unspecified unspecified 2-12 Wendela knee knee [id number] Tremor, Tremor, Diagnosis Active Kayla unspecified unspecified 2-12 Wendela [id number] Allergies, Adverse Reactions, Alerts Allergy Allergy Status [...]
[2019-09-01 21:04] LABS: Albumin 4.3 g/dL (3.2-5.2); Albumin/Globulin Ratio 1.4 (1-3); BUN/Creatinine Ratio 23.5 (8-20); C Reactive Protein 4.85 mg/L (<8.01); Calcium 10.3 mg/dL (8.6-10.3); EGFR African American 99.3 (>60); Globulin 3.1 g/dL (2-4); Magnesium 2.2 mg/dL (1.9-2.7); Potassium 3.6 mmol/L (3.5-5.0); Total Bilirubin 0.7 mg/dL (0.2-1.0); Total Protein 7.4 g/dL (6.4-8.9)
[2019-09-01 21:06] LABS: Troponin I 0.02 ng/mL (<0.03)
[2019-09-01 21:32] LABS: Influenza A Molecular Negative (Negative); Influenza B Molecular Negative (Negative)
[2019-09-01 21:50] LABS: TSH (Thyroid Stimulating Horm) 2.85 mcIU/mL (0.34-5.60)
[2019-09-02] MEDS ORDERED: Acetaminophen TAB* 325 MG PO ONE (00:13)
[2019-09-02 01:34] VITALS: BP 145/93
== END 2019-09-02 01:03 ==
LOC: ED 20:08
DX: G40.909 Epilepsy, unspecified, not intractable, without status epilepticus (principal); J98.8 Other specified respiratory disorders; I48.91 Unspecified atrial fibrillation; I10 Essential (primary) hypertension; R94.31 Abnormal electrocardiogram [ECG] [EKG]; Z79.01 Long term (current) use of anticoagulants; Z86.73 Personal history of transient ischemic attack (TIA), and cerebral infarction without residual deficits; Z20.828 Contact with and (suspected) exposure to other viral communicable diseases
CPT/HCPCS: 36415; 70450; 71045; 72125; 72128; 80053; 81003; 83605; 83735; 84443; 84484; 85025; 86140; 87635; 93005; 99285; A9270-GY

== ENCOUNTER 2020-06-23 22:33 | Inpatient (IN) ==
[2020-06-23] MEDS ORDERED: NS 0.9% 1000 ml BAG 1,000 ML IV ONE (22:36)
[2020-06-23] MEDS ORDERED: Iodixanol (CONTRAST) 320 MG/ML 100 ML SDV IV ONE (22:47)
[2020-06-23 23:09] LABS: ABS Basophils 0.1 10^3/ul (0-0.2); ABS Eosinophils 0.1 10^3/ul (0-0.6); ABS Lymphocytes 1.3 10^3/ul (1.0-4.8); ABS Monocytes 0.7 10^3/ul (0-0.8); ABS Neutrophils 7.3 10^3/ul (1.5-7.7); Eosinophil % 0.8 %; Hematocrit 41 % (35-47); Hemoglobin 13.7 g/dL (12.0-16.0); Lymphocyte % 13.9 %; Mean Corpuscular HGB Conc 34 g/dL (31-36); Mean Corpuscular Hemoglobin 32 pg (27-31); Mean Corpuscular Volume 94 fL (80-97); Mean Platelet Volume 8.4 fL (7.4-10.4); Platelet Count 188 10^3/uL (150-450); Red Blood Count 4.34 10^6 /uL (3.70-4.87); Red Cell Distribution Width 14 % (10-15); White Blood Count 9.4 10^3/uL (3.5-10.8)
[2020-06-23 23:19] LABS: Activated Partial Thrombo Time 34.1 seconds (26.0-38.0); INR 1.22 (0.82-1.09)
[2020-06-23 23:26] LABS: Albumin 4.4 g/dL (3.2-5.2); Albumin/Globulin Ratio 1.7 (1-3); BUN/Creatinine Ratio 23.6 (8-20); Calcium 9.1 mg/dL (8.6-10.3); EGFR African American 92.7 (>60); EGFR Non-African American 76.6 (>60); Globulin 2.6 g/dL (2-4); HDL Cholesterol 106.9 mg/dL; Potassium 3.7 mmol/L (3.5-5.0); Total Bilirubin 0.5 mg/dL (0.2-1.0)
[2020-06-23 23:28] LABS: Troponin I 0.01 ng/mL (<0.03)
[2020-06-23] MEDS ORDERED: niCARdipine 0.1MG/ML IVPREMIX 20 MG/200 ML BAG IV ONE (23:29)
[2020-06-23] MEDS ORDERED: niCARdipine 0.1MG/ML IVPREMIX 20 MG/200 ML BAG IV SCH (23:45)
[2020-06-23] MEDS ORDERED: Labetalol IV 5 MG/ML 20 ml VIAL IV PUSH ONE (23:59)
[2020-06-24] MEDS ORDERED: levETIRAcetam IV 750 MG in NS 0.9% 100 ml BAG 100 ML IVPB SCH (09:00)
[2020-06-24] MEDS: Timolol 0.5% OPTH.SOL BTL BOTH EYES SCH (09:32)
[2020-06-24] MEDS ORDERED: Lorazepam PYXIS KEY PRN ×2 (12:01→13:07)
[2020-06-24] MEDS ORDERED: LORazepam 2 mg VIAL 1 ml IV PUSH ONE (12:01)
[2020-06-24] MEDS ORDERED: levETIRAcetam 500 MG IVPREMIX 500 MG/100 ML BAG IV ONE (12:05)
[2020-06-24] MEDS ORDERED: LORazepam 2 mg VIAL 1 ml IV PUSH PRN (13:07)
[2020-06-24] MEDS: levETIRAcetam IV 750 MG in NS 0.9% 100 ml BAG 100 ML IVPB SCH ×2 (14:40→22:52)
[2020-06-24] MEDS ORDERED: levETIRAcetam 1000MG IVPREMIX 1,000 MG/100 ML BAG IVPB SCH (18:00)
[2020-06-25] MEDS: LORazepam 2 mg VIAL 1 ml IV PUSH PRN ×4 (01:27→23:02)
[2020-06-25] MEDS ORDERED: Haloperidol 5 mg/ml SDV IV/IM 5 MG/ML AMP IV SLOW PU ONE (01:49)
[2020-06-25] MEDS ORDERED: Haloperidol 5 mg/ml SDV IV/IM 5 MG/ML AMP ONE (01:49)
[2020-06-25] MEDS: levETIRAcetam IV 750 MG in NS 0.9% 100 ml BAG 100 ML IVPB SCH ×3 (06:26→21:24)
[2020-06-25] MEDS ORDERED: FOSPHENYTOIN IVPB ONE ×2 (06:30→12:30)
[2020-06-25] MEDS ORDERED: NS 0.9% IVPB ONE ×2 (06:30→12:30)
[2020-06-25 08:20] LABS: ABS Monocytes 1.5 10^3/ul (0-0.8); ABS Neutrophils 12.7 10^3/ul (1.5-7.7); Hematocrit 40 % (35-47); Hemoglobin 13.3 g/dL (12.0-16.0); Lymphocyte % 6.7 %; Mean Corpuscular HGB Conc 33 g/dL (31-36); Mean Corpuscular Hemoglobin 31 pg (27-31); Mean Corpuscular Volume 94 fL (80-97); Mean Platelet Volume 9.3 fL (7.4-10.4); Platelet Count 188 10^3/uL (150-450); Red Cell Distribution Width 14 % (10-15); White Blood Count 15.2 10^3/uL (3.5-10.8)
[2020-06-25 08:30] LABS: Albumin 4.2 g/dL (3.2-5.2); Albumin/Globulin Ratio 1.6 (1-3); BUN/Creatinine Ratio 21.3 (8-20); EGFR African American 112.3 (>60); EGFR Non-African American 92.8 (>60); Globulin 2.7 g/dL (2-4); Magnesium 1.9 mg/dL (1.9-2.7); Potassium 3.3 mmol/L (3.5-5.0); Total Protein 6.9 g/dL (6.4-8.9)
[2020-06-25] MEDS ORDERED: Potassium Phosphate IV 15 MMOLE in NS 0.9% 250 ml 250 ML IVPB ONE ×3 (09:10→10:00)
[2020-06-25 09:11] LABS: Calcium 9.2 mg/dL (8.6-10.3)
[2020-06-25] MEDS ORDERED: Magnesium Sulfate 2 gm BAG 2 GM/50 ML BAG IVPB ONE (09:11)
[2020-06-25] MEDS ORDERED: Piperacillin/Tazobac ADVAN 3.375 GM in NS 0.9% 100 ml BAG 100 ML IV ONE (10:00)
[2020-06-25] MEDS ORDERED: Zosyn per Pharmacy NOTE FOLLOW UP SCH (10:00)
[2020-06-25] MEDS: KCL 20 MEQ/100 ML IVPREMIX 20 MEQ/100 ML BAG IV SCH ×2 (10:01→12:49)
[2020-06-25] MEDS ORDERED: Linezolid 600 MG IVPREMIX(*) 600 MG/300 ML BAG IVPB SCH (10:30)
[2020-06-25] MEDS: Timolol 0.5% OPTH.SOL BTL BOTH EYES SCH (10:54)
[2020-06-25] MEDS ORDERED: methylPREDNISolone 125 mg 2 ML VIAL IV ONE (12:24)
[2020-06-25] MEDS ORDERED: levETIRAcetam 1000MG IVPREMIX 1,000 MG/100 ML BAG IVPB ONE (12:30)
[2020-06-25] MEDS: Labetalol IV 5 MG/ML 20 ml VIAL IV PUSH PRN (13:07)
[2020-06-25] MEDS: ZOSYN 3.375 GM Q8H per EXTENDED INFUSION IV SCH ×2 (14:35→22:10)
[2020-06-25 14:56] LABS: Lamotrigine 5.5 mcg/mL (2.5 - 15.0)
[2020-06-25] MEDS ORDERED: Valproic Acid IV 1,000 MG in NS 0.9% 100 ml BAG 100 ML IVPB ONE (15:00)
[2020-06-25 15:09] LABS: Levetiracetam 34.5 mcg/mL
[2020-06-25] MEDS ORDERED: Furosemide 40 mg/4 ml IV VIAL IV ONE (15:46)
[2020-06-25] MEDS ORDERED: Albuterol/Ipratropium NEB.SOL (2.5/0.5 MG) 3 ML NEB.SOLN INH PRN (16:46)
[2020-06-25 17:40] LABS: Urine Appearance Clear; Urine Bilirubin Negative (Negative); Urine Blood Negative (Negative); Urine Color Yellow; Urine Glucose 2+(150 mg/dL) (Negative); Urine Ketones Trace (Negative); Urine Nitrite Negative (Negative); Urine Protein Negative (Negative); Urine Specific Gravity 1.012 (1.010-1.030); Urine Urobilinogen Negative (Negative)
[2020-06-25 18:17] LABS: CO2 Carbon Dioxide 21 mmol/L (22-32); Calcium 8.1 mg/dL (8.6-10.3); Chloride 102 mmol/L (101-111); Sodium 134 mmol/L (135-145)
[2020-06-25 18:22] LABS: BUN/Creatinine Ratio 21.8 (8-20); Blood Urea Nitrogen 12 mg/dL (6-24); EGFR African American 126.5 (>60); EGFR Non-African American 104.6 (>60); Glucose 170 mg/dL (70-100); Phosphorus 2.9 mg/dL (2.5-5.0)
[2020-06-25 18:23] LABS: Anion Gap 11 mmol/L (2-11)
[2020-06-25] MEDS: methylPREDNISolone SOD 40 mg/ml 1 ml VIAL IV SCH (20:01)
[2020-06-25 20:15] LABS: Magnesium 2.3 mg/dL (1.9-2.7); Potassium Redraw 3.6 mmol/L (3.5-5.0)
[2020-06-25] MEDS: Fosphenytoin 100 MG in NS 0.9% 50 ML 50 ML IVPB SCH (20:40)
[2020-06-25] MEDS: DOXYcycline 100 MG in NS 0.9% 250 ml 250 ML IVPB SCH (21:31)
[2020-06-25] MEDS: Valproic Acid IV 500 MG in NS 0.9% 100 ml BAG 100 ML IVPB SCH (23:19)
[2020-06-26] MEDS: Fosphenytoin 100 MG in NS 0.9% 50 ML 50 ML IVPB SCH ×3 (04:34→20:00)
[2020-06-26 06:09] LABS: ABS Lymphocytes 0.8 10^3/ul (1.0-4.8); ABS Monocytes 1.1 10^3/ul (0-0.8); ABS Neutrophils 11.4 10^3/ul (1.5-7.7); Hematocrit 46 % (35-47); Lymphocyte % 5.8 %; Mean Corpuscular HGB Conc 32 g/dL (31-36); Mean Corpuscular Hemoglobin 31 pg (27-31); Mean Corpuscular Volume 96 fL (80-97); Mean Platelet Volume 8.8 fL (7.4-10.4); Platelet Count 188 10^3/uL (150-450); Red Blood Count 4.81 10^6 /uL (3.70-4.87); Red Cell Distribution Width 14 % (10-15); White Blood Count 13.2 10^3/uL (3.5-10.8)
[2020-06-26] MEDS: levETIRAcetam IV 750 MG in NS 0.9% 100 ml BAG 100 ML IVPB SCH ×3 (06:26→22:02)
[2020-06-26] MEDS: ZOSYN 3.375 GM Q8H per EXTENDED INFUSION IV SCH ×3 (06:26→23:11)
[2020-06-26] MEDS: methylPREDNISolone SOD 40 mg/ml 1 ml VIAL IV SCH (06:26)
[2020-06-26 06:28] LABS: Calcium 8.1 mg/dL (8.6-10.3); Magnesium 2.2 mg/dL (1.9-2.7); Potassium 3.6 mmol/L (3.5-5.0)
[2020-06-26 06:34] LABS: BUN/Creatinine Ratio 24.6 (8-20); EGFR African American 97.4 (>60); EGFR Non-African American 80.5 (>60); Phosphorus 1.8 mg/dL (2.5-5.0)
[2020-06-26] MEDS: Valproic Acid IV 500 MG in NS 0.9% 100 ml BAG 100 ML IVPB SCH ×3 (07:58→23:18)
[2020-06-26] MEDS: Timolol 0.5% OPTH.SOL BTL BOTH EYES SCH (08:13)
[2020-06-26] MEDS: DOXYcycline 100 MG in NS 0.9% 250 ml 250 ML IVPB SCH ×2 (09:39→22:02)
[2020-06-26] MEDS ORDERED: Potassium Phosphate IV 15 MMOLE in NS 0.9% 250 ml 250 ML IVPB ONE (10:00)
[2020-06-26] MEDS ORDERED: Valproic Acid IV 500 MG in NS 0.9% 100 ml BAG 100 ML IVPB ONE (10:30)
[2020-06-26] MEDS: LORazepam 2 mg VIAL 1 ml IV PUSH PRN ×2 (10:34→13:56)
[2020-06-26] MEDS: Multivitamins ADULT w/MIN LIQ 15 ML UDC PO SCH (11:07)
[2020-06-26] MEDS ORDERED: Furosemide 40 mg/4 ml IV VIAL IV SLOW PU ONE (12:50)
[2020-06-26] MEDS ORDERED: methylPREDNISolone SOD 40 mg/ml 1 ml VIAL IV SCH (18:30)
[2020-06-26] MEDS: Polyethylene Glycol 3350 17 GM PACKET PO SCH (22:02)
[2020-06-27 04:40] LABS: Hematocrit 43 % (35-47); Hemoglobin 14.3 g/dL (12.0-16.0); Mean Corpuscular HGB Conc 33 g/dL (31-36); Mean Corpuscular Hemoglobin 31 pg (27-31); Mean Corpuscular Volume 94 fL (80-97); Mean Platelet Volume 8.7 fL (7.4-10.4); Platelet Count 206 10^3/uL (150-450); Red Blood Count 4.58 10^6 /uL (3.70-4.87); Red Cell Distribution Width 14 % (10-15); White Blood Count 15.7 10^3/uL (3.5-10.8)
[2020-06-27] MEDS: Fosphenytoin 100 MG in NS 0.9% 50 ML 50 ML IVPB SCH (04:40)
[2020-06-27 04:43] LABS: ABS Lymphocytes 1.1 10^3/ul (1.0-4.8); ABS Monocytes 1.6 10^3/ul (0-0.8); Eosinophil % 0.1 %; Lymphocyte % 6.9 %
[2020-06-27 04:57] LABS: BUN/Creatinine Ratio 37.7 (8-20); Calcium 7.7 mg/dL (8.6-10.3); EGFR African American 112.3 (>60); EGFR Non-African American 92.8 (>60); Phosphorus 2.4 mg/dL (2.5-5.0); Potassium 3.3 mmol/L (3.5-5.0)
[2020-06-27] MEDS: levETIRAcetam IV 750 MG in NS 0.9% 100 ml BAG 100 ML IVPB SCH ×3 (06:36→22:11)
[2020-06-27] MEDS: ZOSYN 3.375 GM Q8H per EXTENDED INFUSION IV SCH ×3 (06:36→22:58)
[2020-06-27] MEDS: KCL 10 MEQ/50 ML IVPREMIX 10 MEQ/50 ML BAG IV SCH ×3 (07:17→10:45)
[2020-06-27] MEDS: Valproic Acid IV 500 MG in NS 0.9% 100 ml BAG 100 ML IVPB SCH ×3 (07:17→22:22)
[2020-06-27] MEDS: Polyethylene Glycol 3350 17 GM PACKET PO SCH ×2 (08:57→21:00)
[2020-06-27] MEDS: Timolol 0.5% OPTH.SOL BTL BOTH EYES SCH (08:57)
[2020-06-27] MEDS: Multivitamins ADULT w/MIN LIQ 15 ML UDC PO SCH (08:57)
[2020-06-27] MEDS ORDERED: Metoprolol Tartrate 5 mg VIAL 5 ml VIAL (1 mg/ml) IV ONE (09:50)
[2020-06-27] MEDS: DOXYcycline 100 MG in NS 0.9% 250 ml 250 ML IVPB SCH ×2 (10:34→20:59)
[2020-06-27] MEDS ORDERED: niCARdipine 0.1MG/ML IVPREMIX 20 MG/200 ML BAG IV SCH (12:00)
[2020-06-27] MEDS ORDERED: Haloperidol 5 mg/ml SDV IV/IM 5 MG/ML AMP IV SLOW PU ONE (15:05)
[2020-06-27] MEDS ORDERED: fentaNYL 100 mcg/2 ml 50 MCG/ML VIAL ONE (17:29)
[2020-06-27] MEDS: fentaNYL 100 mcg/2 ml 50 MCG/ML VIAL IV SLOW PU PRN (21:39)
[2020-06-28] MEDS: fentaNYL 100 mcg/2 ml 50 MCG/ML VIAL IV SLOW PU PRN ×4 (03:15→19:05)
[2020-06-28] MEDS: ZOSYN 3.375 GM Q8H per EXTENDED INFUSION IV SCH ×3 (05:40→23:05)
[2020-06-28] MEDS: levETIRAcetam IV 750 MG in NS 0.9% 100 ml BAG 100 ML IVPB SCH ×3 (05:43→21:37)
[2020-06-28 05:51] LABS: Hematocrit 41 % (35-47); Hemoglobin 13.8 g/dL (12.0-16.0); Mean Corpuscular HGB Conc 34 g/dL (31-36); Mean Corpuscular Hemoglobin 32 pg (27-31); Mean Corpuscular Volume 94 fL (80-97); Mean Platelet Volume 8.6 fL (7.4-10.4); Platelet Count 211 10^3/uL (150-450); Red Blood Count 4.39 10^6 /uL (3.70-4.87); Red Cell Distribution Width 14 % (10-15); White Blood Count 11.2 10^3/uL (3.5-10.8)
[2020-06-28] MEDS: Valproic Acid IV 500 MG in NS 0.9% 100 ml BAG 100 ML IVPB SCH ×3 (06:02→22:40)
[2020-06-28 06:08] LABS: BUN/Creatinine Ratio 42.4 (8-20); Calcium 9.1 mg/dL (8.6-10.3); EGFR African American 116.7 (>60); EGFR Non-African American 96.4 (>60); Potassium 3.4 mmol/L (3.5-5.0)
[2020-06-28] MEDS: Polyethylene Glycol 3350 17 GM PACKET PO SCH ×2 (08:28→19:55)
[2020-06-28] MEDS: Multivitamins ADULT w/MIN LIQ 15 ML UDC PO SCH (08:28)
[2020-06-28 08:34] LABS: Phosphorus 1.8 mg/dL (2.5-5.0)
[2020-06-28] MEDS: Timolol 0.5% OPTH.SOL BTL BOTH EYES SCH (08:34)
[2020-06-28] MEDS: DOXYcycline 100 MG in NS 0.9% 250 ml 250 ML IVPB SCH (08:35)
[2020-06-28] MEDS ORDERED: Potassium Phosphate IV 15 MMOLE in NS 0.9% 250 ml 250 ML IVPB ONE (08:53)
[2020-06-28] MEDS ORDERED: niCARdipine 0.1MG/ML IVPREMIX 20 MG/200 ML BAG IV ONE (16:28)
[2020-06-28] MEDS: niCARdipine 0.1MG/ML IVPREMIX 20 MG/200 ML BAG IV SCH ×2 (16:39→19:56)
[2020-06-29] MEDS: fentaNYL 100 mcg/2 ml 50 MCG/ML VIAL IV SLOW PU PRN (00:37)
[2020-06-29] MEDS: niCARdipine 0.1MG/ML IVPREMIX 20 MG/200 ML BAG IV SCH (03:29)
[2020-06-29 04:15] LABS: ABS Lymphocytes 1.4 10^3/ul (1.0-4.8); ABS Monocytes 1.5 10^3/ul (0-0.8); ABS Neutrophils 7.6 10^3/ul (1.5-7.7); Eosinophil % 0.1 %; Hematocrit 41 % (35-47); Hemoglobin 13.7 g/dL (12.0-16.0); Lymphocyte % 13.3 %; Mean Corpuscular HGB Conc 34 g/dL (31-36); Mean Corpuscular Hemoglobin 32 pg (27-31); Mean Corpuscular Volume 93 fL (80-97); Mean Platelet Volume 8.6 fL (7.4-10.4); Platelet Count 224 10^3/uL (150-450); Red Blood Count 4.35 10^6 /uL (3.70-4.87); Red Cell Distribution Width 14 % (10-15); White Blood Count 10.6 10^3/uL (3.5-10.8)
[2020-06-29 04:37] LABS: BUN/Creatinine Ratio 41.5 (8-20); Calcium 8.6 mg/dL (8.6-10.3); EGFR Non-African American 109.1 (>60); Potassium 3.2 mmol/L (3.5-5.0)
[2020-06-29] MEDS: levETIRAcetam IV 750 MG in NS 0.9% 100 ml BAG 100 ML IVPB SCH (05:25)
[2020-06-29] MEDS ORDERED: Potassium Chlor 20 meq TAB.ER PO ONE (05:39)
[2020-06-29] MEDS: ZOSYN 3.375 GM Q8H per EXTENDED INFUSION IV SCH ×3 (05:51→20:48)
[2020-06-29] MEDS: KCL 10 MEQ/50 ML IVPREMIX 10 MEQ/50 ML BAG IV SCH ×3 (06:14→08:45)
[2020-06-29] MEDS: Polyethylene Glycol 3350 17 GM PACKET PO SCH ×2 (07:36→20:52)
[2020-06-29] MEDS: Multivitamins ADULT w/MIN LIQ 15 ML UDC PO SCH (07:36)
[2020-06-29] MEDS: Timolol 0.5% OPTH.SOL BTL BOTH EYES SCH (07:36)
[2020-06-29] MEDS: Valproic Acid IV 500 MG in NS 0.9% 100 ml BAG 100 ML IVPB SCH ×3 (07:40→23:05)
[2020-06-29 08:24] LABS: Magnesium 1.9 mg/dL (1.9-2.7)
[2020-06-29] MEDS: levETIRAcetam 1000MG IVPREMIX 1,000 MG/100 ML BAG IVPB SCH ×2 (13:29→20:48)
[2020-06-30] MEDS: levETIRAcetam 1000MG IVPREMIX 1,000 MG/100 ML BAG IVPB SCH ×3 (05:42→21:34)
[2020-06-30] MEDS: Valproic Acid IV 500 MG in NS 0.9% 100 ml BAG 100 ML IVPB SCH ×3 (06:24→23:10)
[2020-06-30] MEDS: Polyethylene Glycol 3350 17 GM PACKET PO SCH ×2 (08:05→20:37)
[2020-06-30] MEDS: Multivitamins ADULT w/MIN LIQ 15 ML UDC PO SCH (08:05)
[2020-06-30 09:35] LABS: BUN/Creatinine Ratio 42.2 (8-20); Calcium 8.5 mg/dL (8.6-10.3); EGFR African American 159.5 (>60); EGFR Non-African American 131.8 (>60); Potassium 2.6 mmol/L (3.5-5.0)
[2020-06-30] MEDS: KCL 20 MEQ/100 ML IVPREMIX 20 MEQ/100 ML BAG IV SCH ×3 (11:00→15:51)
[2020-06-30] MEDS: Timolol 0.5% OPTH.SOL BTL BOTH EYES SCH (11:03)
[2020-06-30] MEDS: LaCOSAMide VIAL 50 MG in NS 0.9% 50 ML 50 ML IV SCH (15:01)
[2020-06-30] MEDS: Labetalol IV 5 MG/ML 20 ml VIAL IV PUSH PRN (17:05)
[2020-07-01] MEDS: LaCOSAMide VIAL 50 MG in NS 0.9% 50 ML 50 ML IV SCH (01:04)
[2020-07-01] MEDS: levETIRAcetam 1000MG IVPREMIX 1,000 MG/100 ML BAG IVPB SCH ×3 (05:25→21:23)
[2020-07-01 05:38] LABS: ABS Eosinophils 0.1 10^3/ul (0-0.6); ABS Lymphocytes 1.2 10^3/ul (1.0-4.8); ABS Monocytes 0.9 10^3/ul (0-0.8); ABS Neutrophils 7.4 10^3/ul (1.5-7.7); Eosinophil % 0.6 %; Hematocrit 40 % (35-47); Hemoglobin 13.4 g/dL (12.0-16.0); Lymphocyte % 12.3 %; Mean Corpuscular HGB Conc 34 g/dL (31-36); Mean Corpuscular Hemoglobin 31 pg (27-31); Mean Corpuscular Volume 93 fL (80-97); Mean Platelet Volume 8.6 fL (7.4-10.4); Nucleated Red Blood Cells % 0.1; Platelet Count 219 10^3/uL (150-450); Red Blood Count 4.27 10^6 /uL (3.70-4.87); Red Cell Distribution Width 14 % (10-15); White Blood Count 9.5 10^3/uL (3.5-10.8)
[2020-07-01 05:57] LABS: BUN/Creatinine Ratio 48.1 (8-20); Calcium 8.4 mg/dL (8.6-10.3); EGFR Non-African American 111.5 (>60); Magnesium 2.2 mg/dL (1.9-2.7); Potassium 3.1 mmol/L (3.5-5.0)
[2020-07-01] MEDS: Valproic Acid IV 500 MG in NS 0.9% 100 ml BAG 100 ML IVPB SCH ×3 (06:23→22:04)
[2020-07-01] MEDS: Polyethylene Glycol 3350 17 GM PACKET PO SCH ×2 (07:48→19:12)
[2020-07-01] MEDS: Multivitamins ADULT w/MIN LIQ 15 ML UDC PO SCH (07:49)
[2020-07-01] MEDS: Timolol 0.5% OPTH.SOL BTL BOTH EYES SCH (07:50)
[2020-07-01] MEDS: KCL 20 MEQ/100 ML IVPREMIX 20 MEQ/100 ML BAG IV SCH ×2 (12:26→16:04)
[2020-07-01] MEDS: LaCOSAMide VIAL 100 MG in NS 0.9% 50 ML 50 ML IV SCH (13:31)
[2020-07-02] MEDS: LaCOSAMide VIAL 100 MG in NS 0.9% 50 ML 50 ML IV SCH ×2 (01:03→13:47)
[2020-07-02] MEDS: levETIRAcetam 1000MG IVPREMIX 1,000 MG/100 ML BAG IVPB SCH ×3 (05:18→22:45)
[2020-07-02 05:34] LABS: Hematocrit 43 % (35-47); Hemoglobin 14.1 g/dL (12.0-16.0); Mean Corpuscular HGB Conc 33 g/dL (31-36); Mean Corpuscular Hemoglobin 31 pg (27-31); Mean Corpuscular Volume 95 fL (80-97); Mean Platelet Volume 8.3 fL (7.4-10.4); Platelet Count 183 10^3/uL (150-450); Red Blood Count 4.56 10^6 /uL (3.70-4.87); Red Cell Distribution Width 14 % (10-15); White Blood Count 11.3 10^3/uL (3.5-10.8)
[2020-07-02 05:47] LABS: BUN/Creatinine Ratio 49.1 (8-20); Calcium 9.4 mg/dL (8.6-10.3); EGFR African American 121.4 (>60); EGFR Non-African American 100.3 (>60); Magnesium 2.3 mg/dL (1.9-2.7); Potassium 3.4 mmol/L (3.5-5.0)
[2020-07-02] MEDS: Valproic Acid IV 500 MG in NS 0.9% 100 ml BAG 100 ML IVPB SCH ×2 (05:59→14:45)
[2020-07-02 06:08] LABS: ABS Lymphocytes 0.8 10^3/ul (1.0-4.8); ABS Monocytes 1.1 10^3/ul (0-0.8); ABS Neutrophils 9.3 10^3/ul (1.5-7.7); Eosinophil % 0.4 %; Lymphocyte % 7.3 %
[2020-07-02] MEDS: Polyethylene Glycol 3350 17 GM PACKET PO SCH ×2 (09:56→22:45)
[2020-07-02] MEDS: Multivitamins ADULT w/MIN LIQ 15 ML UDC PO SCH (09:56)
[2020-07-02] MEDS: Timolol 0.5% OPTH.SOL BTL BOTH EYES SCH (09:56)
[2020-07-03] MEDS: Valproic Acid IV 500 MG in NS 0.9% 100 ml BAG 100 ML IVPB SCH ×4 (00:13→22:16)
[2020-07-03] MEDS: LaCOSAMide VIAL 100 MG in NS 0.9% 50 ML 50 ML IV SCH ×2 (01:18→13:32)
[2020-07-03] MEDS: levETIRAcetam 1000MG IVPREMIX 1,000 MG/100 ML BAG IVPB SCH ×3 (05:26→21:26)
[2020-07-03 07:33] LABS: Hematocrit 43 % (35-47); Hemoglobin 14.1 g/dL (12.0-16.0); Mean Corpuscular HGB Conc 33 g/dL (31-36); Mean Corpuscular Hemoglobin 31 pg (27-31); Mean Corpuscular Volume 94 fL (80-97); Mean Platelet Volume 8.9 fL (7.4-10.4); Platelet Count 125 10^3/uL (150-450); Red Blood Count 4.53 10^6 /uL (3.70-4.87); Red Cell Distribution Width 14 % (10-15); White Blood Count 11.9 10^3/uL (3.5-10.8)
[2020-07-03 07:53] LABS: BUN/Creatinine Ratio 45.3 (8-20); EGFR Non-African American 109.1 (>60); Magnesium 2.1 mg/dL (1.9-2.7); Potassium 3.4 mmol/L (3.5-5.0)
[2020-07-03 09:29] LABS: ABS Eosinophils 0.1 10^3/ul (0-0.6); ABS Lymphocytes 1.2 10^3/ul (1.0-4.8); ABS Monocytes 1.6 10^3/ul (0-0.8); Eosinophil % 1.2 %; Lymphocyte % 9.8 %
[2020-07-03] MEDS: Polyethylene Glycol 3350 17 GM PACKET PO SCH ×2 (10:30→20:17)
[2020-07-03] MEDS: Timolol 0.5% OPTH.SOL BTL BOTH EYES SCH (10:30)
[2020-07-03] MEDS: Multivitamins ADULT w/MIN LIQ 15 ML UDC PO SCH (10:30)
[2020-07-03 17:23] LABS: Urine Appearance Clear; Urine Bilirubin Negative (Negative); Urine Blood Negative (Negative); Urine Color Yellow; Urine Glucose 1+(50 mg/dL) (Negative); Urine Ketones Trace (Negative); Urine Nitrite Negative (Negative); Urine Protein 1+(30 mg/dL) (Negative); Urine Specific Gravity 1.019 (1.010-1.030); Urine Urobilinogen Negative (Negative)
[2020-07-03 17:40] LABS: Urine Bacteria Absent (Absent); Urine Red Blood Cell Trace(0-2/hpf) (Absent); Urine White Blood Cell Trace(0-5/hpf) (Absent)
[2020-07-04] MEDS: LaCOSAMide VIAL 100 MG in NS 0.9% 50 ML 50 ML IV SCH ×2 (01:22→13:56)
[2020-07-04] MEDS: levETIRAcetam 1000MG IVPREMIX 1,000 MG/100 ML BAG IVPB SCH ×3 (05:18→21:21)
[2020-07-04 08:51] LABS: Hematocrit 41 % (35-47); Hemoglobin 13.3 g/dL (12.0-16.0); Mean Corpuscular HGB Conc 33 g/dL (31-36); Mean Corpuscular Hemoglobin 31 pg (27-31); Mean Corpuscular Volume 95 fL (80-97); Mean Platelet Volume 9.1 fL (7.4-10.4); Platelet Count 102 10^3/uL (150-450); Red Cell Distribution Width 14 % (10-15); White Blood Count 15.8 10^3/uL (3.5-10.8)
[2020-07-04] MEDS: Valproic Acid IV 500 MG in NS 0.9% 100 ml BAG 100 ML IVPB SCH ×3 (08:59→22:31)
[2020-07-04 09:10] LABS: Calcium 9.6 mg/dL (8.6-10.3); EGFR African American 141.2 (>60); EGFR Non-African American 116.7 (>60); Magnesium 2.2 mg/dL (1.9-2.7); Potassium 3.7 mmol/L (3.5-5.0)
[2020-07-04 09:22] LABS: ABS Basophils 0.1 10^3/ul (0-0.2); ABS Eosinophils 0.2 10^3/ul (0-0.6); ABS Lymphocytes 1.2 10^3/ul (1.0-4.8); ABS Monocytes 2.4 10^3/ul (0-0.8); Lymphocyte % 7.5 %
[2020-07-04] MEDS: Multivitamins ADULT w/MIN LIQ 15 ML UDC PO SCH (12:43)
[2020-07-04] MEDS: Polyethylene Glycol 3350 17 GM PACKET PO SCH ×2 (12:43→21:21)
[2020-07-04] MEDS: Timolol 0.5% OPTH.SOL BTL BOTH EYES SCH (12:43)
[2020-07-04 15:24] LABS: Urine Appearance Turbid; Urine Bilirubin Negative (Negative); Urine Blood 3+ (Negative); Urine Color Yellow; Urine Glucose Negative (Negative); Urine Ketones Negative (Negative); Urine Nitrite Negative (Negative); Urine Protein 1+(30 mg/dL) (Negative); Urine Specific Gravity 1.012 (1.010-1.030); Urine Urobilinogen Negative (Negative)
[2020-07-04 15:28] LABS: Urine Bacteria Absent (Absent); Urine Red Blood Cell 3+(>10/hpf) (Absent); Urine White Blood Cell 1+(6-10/hpf) (Absent)
[2020-07-05] MEDS: LaCOSAMide VIAL 100 MG in NS 0.9% 50 ML 50 ML IV SCH ×2 (00:58→15:47)
[2020-07-05] MEDS: levETIRAcetam 1000MG IVPREMIX 1,000 MG/100 ML BAG IVPB SCH ×3 (05:38→21:40)
[2020-07-05] MEDS: Valproic Acid IV 500 MG in NS 0.9% 100 ml BAG 100 ML IVPB SCH ×3 (06:09→22:02)
[2020-07-05 09:52] LABS: Hematocrit 41 % (35-47); Hemoglobin 13.5 g/dL (12.0-16.0); Mean Corpuscular HGB Conc 33 g/dL (31-36); Mean Corpuscular Hemoglobin 31 pg (27-31); Mean Corpuscular Volume 94 fL (80-97); Mean Platelet Volume 9.8 fL (7.4-10.4); Platelet Count 115 10^3/uL (150-450); Red Blood Count 4.36 10^6 /uL (3.70-4.87); Red Cell Distribution Width 14 % (10-15); White Blood Count 19.2 10^3/uL (3.5-10.8)
[2020-07-05] MEDS: Polyethylene Glycol 3350 17 GM PACKET PO SCH (10:07)
[2020-07-05 10:08] LABS: BUN/Creatinine Ratio 44.4 (8-20); Calcium 9.4 mg/dL (8.6-10.3); EGFR African American 159.5 (>60); EGFR Non-African American 131.8 (>60); Magnesium 2.3 mg/dL (1.9-2.7); Potassium 3.5 mmol/L (3.5-5.0)
[2020-07-05 10:21] LABS: ABS Basophils 0.1 10^3/ul (0-0.2); ABS Eosinophils 0.1 10^3/ul (0-0.6); ABS Lymphocytes 1.2 10^3/ul (1.0-4.8); ABS Monocytes 2.7 10^3/ul (0-0.8); ABS Neutrophils 15.1 10^3/ul (1.5-7.7); Eosinophil % 0.7 %; Lymphocyte % 6.4 %
[2020-07-05] MEDS: Multivitamins ADULT w/MIN LIQ 15 ML UDC PO SCH (10:27)
[2020-07-05] MEDS: Timolol 0.5% OPTH.SOL BTL BOTH EYES SCH (10:27)
[2020-07-05] MEDS ORDERED: Iohexol 350 (CONTRAST) 500 ML MDV IV ONE (13:09)
[2020-07-05 13:38] LABS: Body Fluid Source Cerebral Spinal
[2020-07-05 13:53] LABS: CSF Glucose 78 mg/dL (40-70)
[2020-07-05] MEDS ORDERED: Polyethylene Glycol 3350 17 GM PACKET PO PRN (16:37)
[2020-07-06] MEDS: LaCOSAMide VIAL 100 MG in NS 0.9% 50 ML 50 ML IV SCH ×2 (01:14→12:39)
[2020-07-06] MEDS: levETIRAcetam 1000MG IVPREMIX 1,000 MG/100 ML BAG IVPB SCH ×3 (05:13→21:04)
[2020-07-06] MEDS: Valproic Acid IV 500 MG in NS 0.9% 100 ml BAG 100 ML IVPB SCH ×3 (05:50→22:07)
[2020-07-06] MEDS: Timolol 0.5% OPTH.SOL BTL BOTH EYES SCH (09:16)
[2020-07-06] MEDS: Multivitamins ADULT w/MIN LIQ 15 ML UDC PO SCH (09:16)
[2020-07-06 10:35] LABS: Hematocrit 39 % (35-47); Hemoglobin 13.1 g/dL (12.0-16.0); Mean Corpuscular HGB Conc 33 g/dL (31-36); Mean Corpuscular Hemoglobin 31 pg (27-31); Mean Corpuscular Volume 94 fL (80-97); Platelet Count 159 10^3/uL (150-450); Red Cell Distribution Width 14 % (10-15); White Blood Count 22.2 10^3/uL (3.5-10.8)
[2020-07-06 10:50] LABS: BUN/Creatinine Ratio 43.5 (8-20); Calcium 9.3 mg/dL (8.6-10.3); EGFR African American 155.5 (>60); EGFR Non-African American 128.5 (>60); Magnesium 2.3 mg/dL (1.9-2.7); Potassium 3.4 mmol/L (3.5-5.0)
[2020-07-06 12:05] LABS: ABS Basophils 0.1 10^3/ul (0-0.2); ABS Eosinophils 0.1 10^3/ul (0-0.6); ABS Lymphocytes 1.1 10^3/ul (1.0-4.8); ABS Monocytes 3.7 10^3/ul (0-0.8); ABS Neutrophils 17.3 10^3/ul (1.5-7.7); Eosinophil % 0.3 %; Lymphocyte % 5.1 %
[2020-07-06] MEDS: Morphine 2 MG/ML SYRINGE IV PRN ×3 (17:49→22:48)
[2020-07-06 19:46] LABS: HSV 1 PCR, CSF Negative (Negative); HSV 2 PCR, CSF Negative (Negative)
[2020-07-06] MEDS: Atropine 1% (ORAL/SL) 15 ML BTL SL PRN (23:16)
[2020-07-07] MEDS: Atropine 1% (ORAL/SL) 15 ML BTL SL PRN (01:18)
[2020-07-07] MEDS: Morphine 2 MG/ML SYRINGE IV PRN ×4 (01:18→18:32)
[2020-07-07] MEDS: LaCOSAMide VIAL 100 MG in NS 0.9% 50 ML 50 ML IV SCH ×3 (01:24→23:00)
[2020-07-07] MEDS: levETIRAcetam 1000MG IVPREMIX 1,000 MG/100 ML BAG IVPB SCH ×3 (05:12→20:10)
[2020-07-07] MEDS: Valproic Acid IV 500 MG in NS 0.9% 100 ml BAG 100 ML IVPB SCH ×3 (05:55→21:30)
[2020-07-07] MEDS: Multivitamins ADULT w/MIN LIQ 15 ML UDC PO SCH (09:31)
[2020-07-07] MEDS: Timolol 0.5% OPTH.SOL BTL BOTH EYES SCH (09:32)
[2020-07-07 15:05] VITALS: BP 123/57
[2020-07-07] MEDS ORDERED: LORazepam 2 mg VIAL 1 ml IV PUSH PRN (16:27)
[2020-07-07] MEDS: Morphine 2 MG/ML SYRINGE IV SCH (21:31)
[2020-07-08] MEDS: Morphine 2 MG/ML SYRINGE IV SCH ×4 (01:51→12:24)
[2020-07-08] MEDS: Valproic Acid IV 500 MG in NS 0.9% 100 ml BAG 100 ML IVPB SCH ×2 (05:15→13:37)
[2020-07-08] MEDS: levETIRAcetam 1000MG IVPREMIX 1,000 MG/100 ML BAG IVPB SCH ×2 (05:15→13:37)
[2020-07-08] MEDS: Atropine 1% (ORAL/SL) 15 ML BTL SL PRN ×3 (05:54→15:52)
[2020-07-08] MEDS: LaCOSAMide VIAL 100 MG in NS 0.9% 50 ML 50 ML IV SCH (13:35)
[2020-07-08] MEDS: Morphine 2 MG/ML SYRINGE IV PRN ×2 (13:42→15:07)
[2020-07-08] MEDS ORDERED: Morphine 2 MG/ML SYRINGE IV PRN (15:16)
[2020-07-08] MEDS ORDERED: LORazepam 2 mg VIAL 1 ml IV PUSH PRN (15:55)
[2020-07-08] MEDS ORDERED: LORazepam 2 mg VIAL 1 ml IV PUSH SCH (16:00)
[2020-07-08] MEDS ORDERED: Glycopyrrolate IV 0.2 MG/ML 1 ML VIAL IV SLOW PU SCH (16:00)
[2020-07-08] MEDS ORDERED: Morphine 2 MG/ML SYRINGE IV SCH (18:00)
[2020-07-10] MEDS ORDERED: Scopolamine PATCH Remove NOTE PATCH OFF SCH (19:00)
== END 2020-07-08 17:55 | disposition expired | DRG 100 ==
LOC: ED 22:33 → MEDTELE 06-24 01:22 → ICU 06-24 15:04 → MEDTELE 06-29 12:48
PROVIDERS: ADMIT Student in an Organized Health Care Education/Training Program; ATTEND Student in an Organized Health Care Education/Training Program